=== PATIENT | female | born 1955 | race Two or more races ===

== ENCOUNTER 2018-05-23 08:23 | Inpatient (IN) | payer OTHER ==
[~2018-05-23] VITALS: Ht 149.9 cm; Wt 91.8 kg
[2018-05-23] VITALS (13 sets, daily range): BP systolic 136–193; BP diastolic 61–90
[~2018-05-23 08:23] MED LIST: ASPI-630 PO; ATOR10TA60 PO; DULA0.75 SQ; HYDR-2678 PO; INSU100I17 SQ; INSU100V13 SQ; LISI-338 PO; LISI2.5T PO; METF10007 PO; ONDA4TAB7 PO; POLY17PO29 PO
[2018-05-23] MEDS ORDERED: HYDR-2868 PO (08:29)
[2018-05-23] MEDS ORDERED: CARV25TA PO (08:29)
[2018-05-23] MEDS ORDERED: IV RINGERS,LACTATED 1000ML 1,000 ML IV SCH (08:37)
[2018-05-23] MEDS ORDERED: fentaNYL PF VIAL 100 MCG/2 ML VIAL IV PRN ×2 (08:45)
[2018-05-23] MEDS ORDERED: MIDAZOLAM HCL/PF 2 MG/2 ML VIAL. IV PRN (08:45)
[2018-05-23] MEDS ORDERED: LIDOCAINE 1% PF 2 ML VIAL. ID PRN (08:45)
[2018-05-23] MEDS: IV NORMAL SALINE 1000ML BAG 1,000 ML IV SCH ×2 (09:01→10:35)
[2018-05-23] MEDS ORDERED: PROPOFOL 20 ML IV ONE (09:15)
[2018-05-23 09:55] LABS: HEMATOCRIT 28.8 % (36.0-47.0); HEMOGLOBIN 9.1 g/dL (12.0-15.5); RED BLOOD COUNT 3.34 x10^6/uL (3.50-5.40); RED CELL DISTRIBUTION WIDTH 14.3 % (11.5-14.5); WHITE BLOOD COUNT 9.2 x10^3/uL (4.0-11.0)
[2018-05-23 10:00] LABS: BASE EXCESS ABG -8 mmol/L (-3-3); HCO3 ABG 19 mmol/L (21-28); PCO2 ABG 47 mmHg (35-46); PO2 ABG 164 mmHg (65-108); SAT O2 ABG 99 % (92-99)
[2018-05-23 10:06] LABS: FIO2 ABG 100
[2018-05-23 10:09] LABS: ALBUMIN 2.5 g/dL (3.4-5.0); ALBUMIN/GLOBULIN RATIO 0.7 (1.0-1.7); CREATININE 3.6 mg/dL (0.6-1.0); GFR 12.9; MAGNESIUM 2.5 mg/dL (1.8-2.4); TOTAL BILIRUBIN 0.2 mg/dL (0.2-1.0); TOTAL PROTEIN 6.3 g/dL (6.4-8.2)
[2018-05-23 10:11] LABS: PROTHROMBIN TIME PATIENT 14.3 SEC (11.7-14.0)
--- NOTE | 2018-05-23 10:12 | PDOC ---
Provider Note Provider Note Pt seen in ICU.H&P to be dictated. JL MARTINEZ MD May 23, 2018 10:12
[2018-05-23] MEDS ORDERED: DEXTROSE 50% 25 GM / 50ML DISP.SYRIN. IV PRN (10:15)
--- NOTE | 2018-05-23 10:41 | PDOC2 ---
CONSULT Date of Consult Date of Consult DATE: 05/23/18 TIME: 10:31 Reason for Consult Reason for Consult: BERKLEY on CKD Source Source: Chart review, Patient History of Present Illness Reason for Visit: Patient is a 62-year-old female with known diabetes for at least 10 years and long-standing hypertension, diabetic retinopathy, diabetic foot ulcers in the past requiring surgery. She also has significant loss of vision in her left eye due to diabetic retinopathy. 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 She currently resides in the facility She presented for an outpatient EGD secondary to recurrent nausea/vomiting. In recovery, she became hypoxic, apneic, and eventually arrest with asystole. Received two rounds of CPR and one dose of Epi with ROSC with NSR. Patient admitted to the ICU for further treatment. She is c/o intermittent nausea/vomiting for the last couple of week . C/O some shortness of breath and intermittent chest pain/heaviness in center of her chest with exertion. She has some chronic LE edema. She denies any urinary complaints She was seen by renal at her previous admission. Family History Family History: Diabetes Social History ALCOHOL: none Drugs: None Lives: [facility] Current Medications Current Medications Current Medications Midazolam HCl (Versed) 2 mg PRN 1X PRN IV PRIOR TO PROCEDURE; Start 05/23/18 at 08:45; Stop 05/24/18 at 08:44 Fentanyl Citrate (Fentanyl 2ml Vial) 25 mcg PRN Q5MIN PRN IV X 2 DOSES FOR PAIN ; Start 05/23/18 at 08:45; Stop 05/24/18 at 08:44 Fentanyl Citrate (Fentanyl 2ml Vial) 50 mcg PRN Q5MIN PRN IV X 2 DOSES FOR PAIN ; Start 05/23/18 at 08:45; Stop 05/24/18 at 08:44 Ringer's Solution 1,000 ml @ 125 mls/hr Q8H IV ; Start 05/23/18 at 08:37; Stop 05/23/18 at 10:21; Status DC Lidocaine HCl (Xylocaine-Mpf 1% 2ml Vial) 2 ml 1X PRN PRN ID IV START; Start at 08:45; Stop 05/24/18 at 08:44 Sodium Chloride 1,000 ml @ 125 mls/hr Q8H IV Last administered on 05/23/18at 09: 01; Start 05/23/18 at 08:57; Stop 05/23/18 at 20:56 Propofol 20 ml @ As Directed STK-MED ONCE IV ; Start 05/23/18 at 09:15; Stop 05/23 at 09:16; Status DC Sodium Polystyrene Sulfonate (Kayexalate) 30 gm 1X ONCE PO ; Start 05/23/18 at 11:00; Stop 05/23/18 at 11:01 Sodium Chloride 1,000 ml @ 100 mls/hr 1X ONCE IV ; Start 05/23/18 at 11:00; Stop 05/23/18 at 20:59 Insulin Human Lispro (HumaLOG) 0-7 UNITS TIDWMEALS SQ ; Start 05/23/18 at 12:00 Dextrose (Dextrose 50%-Water Syringe) 12.5 gm PRN Q15MIN PRN IV SEE COMMENTS; Start 05/23/18 at 10:15 Active Scripts Active Reported Hydralazine Hcl 25 Mg Tablet 25 Mg PO QID Coreg (Carvedilol) 25 Mg Tablet 12.5 Mg PO BIDWMEALS Atorvastatin Calcium 10 Mg Tablet 10 Mg PO HS Zofran (Ondansetron Hcl) 4 Mg Tablet 1 Tab PO Q6HRS Miralax (Polyethylene Glycol 3350) 17 Gm Powd.pack 1 Packet PO DAILY Lisinopril 2.5 Mg Tablet 1 Tab PO DAILY Aspirin 81 Mg Tab.chew 1 Tab PO DAILY Novolog Flexpen (Insulin Aspart) 100 Unit/1 Ml Insuln.pen 30 Unit SQ TID Trulicity (Dulaglutide) 0.75 Mg/0.5 Ml Pen.injctr 7.5 Mg SQ WEEKLY Levemir (Insulin Detemir) 100 Unit/1 Ml Vial 50 Unit SQ HS Lortab 5-325 mg Tablet (Hydrocodone/Acetaminophen) 1 Each Tablet 1 Tab PO HS MDD 4 grams daily at bedtime Allergies Allergies: Coded Allergies: I S O L A T I O N *CONTACT* (Verified Allergy, Unknown, 03/07/16) mrsa No Known Medication Allergies (Verified Allergy, Unknown, 05/23/18) ROS Review of System As per HPI Physical Exam Physical Exam GEN: Awake, NAD HEEN: OM moist NECK: Supple CVS: RRR RESP: CTA, No Acc. Muscle Use GI: BS + ve, Non Tender, : No CVA tenderness, No Suprapubic Tenderness Neuro- AXO x3 Skin No rash Vital Signs Vital Signs Date Time Temp Pulse Resp B/P (MAP) Pulse Ox O2 Delivery O2 Flow Rate FiO2 05/23/18 08:42 97.6 70 20 97 97.6 Assessment & Plan BERKLEY on CKD vs progression S/P Arrest following EGD this am as OP K high this am, recd Kayexalate repeat K high as well, had an episode of Bradycardia again Initiate HD today with temp Dialysis catheter Hyperkalemia- Bradycardia HD today cardiac Arrest following EGD Bradycardia CK D stage IV - as per last admission Confirmed by Dr. Reyes (eGFr 27 mL/m ) Acute on chronic possible systolic HF; CXR with pul edema Accelerated hypertension Chest pain Proteinuria: Nephrotic 10 gm in Feb 2018 At Home Low dose Lisinopril Anemia: Transfuse as needed. Discussed with Pt, RN and Cardiology Labs Labs Laboratory Tests Test 05/23/18 08:51 05/23/18 09:45 05/23/18 09:47 05/23/18 09:58 Glucose (Fingerstick) 177 mg/dL (70-99) 219 mg/dL (70-99) White Blood Count 9.2 x10^3/uL (4.0-11.0) Red Blood Count 3.34 x10^6/uL (3.50-5.40) Hemoglobin 9.1 g/dL (12.0-15.5) Hematocrit 28.8 % (36.0-47.0) Mean Corpuscular Volume 86 fL (79-100) Mean Corpuscular Hemoglobin 27 pg (25-35) Mean Corpuscular Hemoglobin Concent 32 g/dL (31-37) Red Cell Distribution Width 14.3 % (11.5-14.5) Platelet Count 270 x10^3/uL (140-400) Prothrombin Time 14.3 SEC (11.7-14.0) Prothromb Time International Ratio 1.1 (0.8-1.1) Sodium Level 138 mmol/L (136-145) Potassium Level 6.0 mmol/L (3.5-5.1) Chloride Level 108 mmol/L (98-107) Carbon Dioxide Level 20 mmol/L (21-32) Anion Gap 10 (6-14) Blood Urea Nitrogen 53 mg/dL (7-20) Creatinine 3.6 mg/dL (0.6-1.0) Estimated GFR (Cockcroft-Gault) 12.9 BUN/Creatinine Ratio 15 (6-20) Glucose Level 222 mg/dL (70-99) Calcium Level 8.0 mg/dL (8.5-10.1) Magnesium Level 2.5 mg/dL (1.8-2.4) Total Bilirubin 0.2 mg/dL (0.2-1.0) Aspartate Amino Transf (AST/SGOT) 96 U/L (15-37) Alanine Aminotransferase (ALT/SGPT) 170 U/L (14-59) Alkaline Phosphatase 211 U/L (46-116) Troponin I Quantitative < 0.017 ng/mL (0.000-0.055) Total Protein 6.3 g/dL (6.4-8.2) Albumin 2.5 g/dL (3.4-5.0) Albumin/Globulin Ratio 0.7 (1.0-1.7) O2 Saturation 99 % (92-99) Arterial Blood pH 7.24 (7.35-7.45) Arterial Blood pCO2 at Patient Temp 47 mmHg (35-46) Arterial Blood pO2 at Patient Temp 164 mmHg (65-108) Arterial Blood HCO3 19 mmol/L (21-28) Arterial Blood Base Excess -8 mmol/L (-3-3) FiO2 100 Laboratory Tests Test 05/23/18 08:51 05/23/18 09:45 05/23/18 09:47 05/23/18 09:58 Glucose (Fingerstick) 177 mg/dL (70-99) 219 mg/dL (70-99) White Blood Count 9.2 x10^3/uL (4.0-11.0) Red Blood Count 3.34 x10^6/uL (3.50-5.40) Hemoglobin 9.1 g/dL (12.0-15.5) Hematocrit 28.8 % (36.0-47.0) Mean Corpuscular Volume 86 fL (79-100) Mean Corpuscular Hemoglobin 27 pg (25-35) Mean Corpuscular Hemoglobin Concent 32 g/dL (31-37) Red Cell Distribution Width 14.3 % (11.5-14.5) Platelet Count 270 x10^3/uL (140-400) Prothrombin Time 14.3 SEC (11.7-14.0) Prothromb Time International Ratio 1.1 (0.8-1.1) Sodium Level 138 mmol/L (136-145) Potassium Level 6.0 mmol/L (3.5-5.1) Chloride Level 108 mmol/L (98-107) Carbon Dioxide Level 20 mmol/L (21-32) Anion Gap 10 (6-14) Blood Urea Nitrogen 53 mg/dL (7-20) Creatinine 3.6 mg/dL (0.6-1.0) Estimated GFR (Cockcroft-Gault) 12.9 BUN/Creatinine Ratio 15 (6-20) Glucose Level 222 mg/dL (70-99) Calcium Level 8.0 mg/dL (8.5-10.1) Magnesium Level 2.5 mg/dL (1.8-2.4) Total Bilirubin 0.2 mg/dL (0.2-1.0) Aspartate Amino Transf (AST/SGOT) 96 U/L (15-37) Alanine Aminotransferase (ALT/SGPT) 170 U/L (14-59) Alkaline Phosphatase 211 U/L (46-116) Troponin I Quantitative < 0.017 ng/mL (0.000-0.055) Total Protein 6.3 g/dL (6.4-8.2) Albumin 2.5 g/dL (3.4-5.0) Albumin/Globulin Ratio 0.7 (1.0-1.7) O2 Saturation 99 % (92-99) Arterial Blood pH 7.24 (7.35-7.45) Arterial Blood pCO2 at Patient Temp 47 mmHg (35-46) Arterial Blood pO2 at Patient Temp 164 mmHg (65-108) Arterial Blood HCO3 19 mmol/L (21-28) Arterial Blood Base Excess -8 mmol/L (-3-3) FiO2 100 Review All relevant outside records, renal labs, imaging studies, telemetry/EKG's were reviewed. PATRICIA CORONADO MD May 23, 2018 10:41
[2018-05-23] MEDS ORDERED: EPINEPHrine SYRINGE 1 MG/10 ML SYRINGE ONE (11:00)
[2018-05-23] MEDS ORDERED: IV NORMAL SALINE 1000ML BAG 1,000 ML IV ONE (11:00)
[2018-05-23] MEDS ORDERED: SODIUM POLYSTYRENE SULFONATE 15 GM/60 ML ORAL.SUSP. PO ONE (11:00)
--- NOTE | 2018-05-23 11:12 | RAD ---
Portable chest, 05/23/2018: HISTORY: CODE BLUE Comparison is made to a study from 03/16/2018. The heart is at the upper limits of normal in size. There are moderate bilateral perihilar infiltrates obscuring the underlying pulmonary vascularity. The appearance suggests pulmonary edema. There is blunting of the costophrenic angles, particularly on the right compatible with a small amount of pleural fluid. There is no evidence of pneumothorax. IMPRESSION: Bilateral pulmonary infiltrates have developed most compatible with pulmonary edema with probable small pleural effusions. Electronically signed by: Jake Armstrong MD (05/23/2018 11:09 AM) [facility]
--- NOTE | 2018-05-23 11:21 | EKG ---
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
[2018-05-23] MEDS: hydrALAZINE 20 MG/ML VIAL. IVP PRN (11:31)
[2018-05-23] MEDS: INSULIN LISPRO 300 UNITS/3 ML INSULN.PEN. SQ SCH ×2 (11:33→17:00)
--- NOTE | 2018-05-23 11:52 | RAD ---
EXAM: Renal sonogram. HISTORY: Renal failure. TECHNIQUE: 03/17/2018. COMPARISON: Sonographic imaging of the kidneys was performed. FINDINGS: The exam is limited due to bowel gas and patient body habitus. The left kidney is partially obscured. The ureteral jets are obscured. The visualized portions of both kidneys are unremarkable. There is no hydronephrosis or solid or cystic renal lesion. The bladder is unremarkable. There are elevated right greater than left renal resistive indices. The aorta and inferior cava are obscured. IMPRESSION: 1. Elevated right greater than left renal resistive indices. This can be seen with intrinsic renal disease. 2. Limited exam due to body habitus and bowel gas. The midline structures, portions of the left kidney and ureteral jets are obscured. Electronically signed by: Alba Nelson MD (05/23/2018 11:49 AM) [facility]
--- NOTE | 2018-05-23 11:56 | PDOC2 ---
MAURY GUTIERREZ FOOD SALES CLERK 05/23/18 1156: CARDIAC CONSULT DATE OF CONSULT Date of Consult DATE: 05/23/18 TIME: 11:51 REASON FOR CONSULT Reason for Consult: Bradycardia and apneic post EGD REFERRING PHYSICIAN Referring Physician: PAULY Oscar SOURCE Source: Chart review, Patient HISTORY OF PRESENT ILLNESS HISTORY OF PRESENT ILLNESS This is a 62 yo female who presented for an outpatient EGD secondary to recurrent nausea/vomiting. In recovery, patient back hypoxic, apneic, and eventually arrest with asystole. Received two rounds of CPR and one dose of Epi with ROSC with NSR. Patient admitted to the ICU for further treatment. Patient presently maintaining NSR in ICU. Patient reports having intermittent nausea/ vomiting for the last couple of week. Also has had some shortness of breath in that period of time. Does report having frequent chest pain. Mainly with exertion. Reports it generally occurs when she walks. Located in her central chest. Describes as heaviness. Associated with shortness of breath and mild dizziness. Resolved when she sits down to rest. No palpitations, diaphoresis. No recent orthopnea or PND. Does have some chronic LE edema. No worse than usual recently. PAST MEDICAL HISTORY Cardiovascular: HTN, Hyperlipidemia Pulmonary: No pertinent hx CENTRAL NERVOUS SYSTEM: Periperal neuropathy GI: GERD, Other (gastroparesis ) Heme/Onc: No pertinent hx Hepatobiliary: No pertinent hx Psych: No pertinent hx Musculoskeletal: Osteoarthritis Rheumatologic: No pertinent hx Infectious disease: No pertinent hx ENT: No pertinent hx Renal/: Chronic renal insuff Endocrine: Diabetes Dermatology: No pertinent hx PAST SURGICAL HISTORY Past Surgical History: Tubal Ligation FAMILY HISTORY Family History: Diabetes, Hypertension SOCIAL HISTORY Smoke: No ALCOHOL: none Drugs: None [facility] CURRENT MEDICATIONS CURRENT MEDICATIONS Current Medications Medications (Trade) Dose Ordered Sig/Jenna Route PRN Reason Start Time Stop Time Status Last Admin Dose Admin Sodium Chloride 1,000 ml @ 125 mls/hr Q8H IV 05/23/18 08:57 05/23/18 20:56 05/23/18 09:01 Sodium Polystyrene Sulfonate (Kayexalate) 30 gm 1X ONCE PO 05/23/18 11:00 05/23/18 11:01 DC 05/23/18 11:30 Sodium Chloride 1,000 ml @ 100 mls/hr 1X ONCE IV 05/23/18 11:00 05/23/18 20:59 05/23/18 11:35 Insulin Human Lispro (HumaLOG) 0-7 UNITS TIDWMEALS SQ 05/23/18 12:00 05/23/18 11:33 Hydralazine HCl (Apresoline Inj) 10 mg PRN Q4HRS PRN IVP ELEVATED BP, SEE COMMENTS 05/23/18 11:15 05/23/18 11:31 ALLERGIES ALLERGIES: Coded Allergies: I S O L A T I O N *CONTACT* (Verified Allergy, Unknown, 03/07/16) mrsa No Known Medication Allergies (Verified Allergy, Unknown, 05/23/18) ROS Review of System 14 point ROS conducted with pertinent positives noted above in HPI. PHYSICAL EXAM General: Alert, Oriented X3, Cooperative, No acute distress HEENT: Atraumatic, Mucous membr. moist/pink Lungs: Other (faint crackles, diminished bases ) Heart: Regular rate, Normal S1, Normal S2, Other (2/6 systolic murmur ) Extremities: Other (1+ bilateral LE edema ) Skin: No breakdown, No significant lesion Neuro: Sensation intact Psych/Mental Status: Mental status NL, Mood NL MUSCULOSKELETAL: Osteoarthritic changes both hands VITALS VITALS Vital Signs Date Time Temp Pulse Resp B/P (MAP) Pulse Ox O2 Delivery O2 Flow Rate FiO2 05/23/18 11:31 70 191/93 05/23/18 08:42 97.6 20 97 97.6 LABS Lab: Laboratory Tests Test 05/23/18 08:51 05/23/18 09:45 05/23/18 09:47 05/23/18 09:58 Glucose (Fingerstick) 177 mg/dL (70-99) 219 mg/dL (70-99) White Blood Count 9.2 x10^3/uL (4.0-11.0) Red Blood Count 3.34 x10^6/uL (3.50-5.40) Hemoglobin 9.1 g/dL (12.0-15.5) Hematocrit 28.8 % (36.0-47.0) Mean Corpuscular Volume 86 fL (79-100) Mean Corpuscular Hemoglobin 27 pg (25-35) Mean Corpuscular Hemoglobin Concent 32 g/dL (31-37) Red Cell Distribution Width 14.3 % (11.5-14.5) Platelet Count 270 x10^3/uL (140-400) Prothrombin Time 14.3 SEC (11.7-14.0) Prothromb Time International Ratio 1.1 (0.8-1.1) Sodium Level 138 mmol/L (136-145) Potassium Level 6.0 mmol/L (3.5-5.1) Chloride Level 108 mmol/L (98-107) Carbon Dioxide Level 20 mmol/L (21-32) Anion Gap 10 (6-14) Blood Urea Nitrogen 53 mg/dL (7-20) Creatinine 3.6 mg/dL (0.6-1.0) Estimated GFR (Cockcroft-Gault) 12.9 BUN/Creatinine Ratio 15 (6-20) Glucose Level 222 mg/dL (70-99) Calcium Level 8.0 mg/dL (8.5-10.1) Magnesium Level 2.5 mg/dL (1.8-2.4) Total Bilirubin 0.2 mg/dL (0.2-1.0) Aspartate Amino Transf (AST/SGOT) 96 U/L (15-37) Alanine Aminotransferase (ALT/SGPT) 170 U/L (14-59) Alkaline Phosphatase 211 U/L (46-116) Troponin I Quantitative < 0.017 ng/mL (0.000-0.055) Total Protein 6.3 g/dL (6.4-8.2) Albumin 2.5 g/dL (3.4-5.0) Albumin/Globulin Ratio 0.7 (1.0-1.7) O2 Saturation 99 % (92-99) Arterial Blood pH 7.24 (7.35-7.45) Arterial Blood pCO2 at Patient Temp 47 mmHg (35-46) Arterial Blood pO2 at Patient Temp 164 mmHg (65-108) Arterial Blood HCO3 19 mmol/L (21-28) Arterial Blood Base Excess -8 mmol/L (-3-3) FiO2 100 ASSESSMENT/PLAN ASSESSMENT/PLAN 1. Respiratory/cardiac arrest following EGD; s/p 2 rounds of CPR and 1 dose of Epi with ROSC. presently maintaining SR. Metabolic derangement possibly contributing. 2. Acute on chronic systolic HF; CXR with pul edema. Echo showed LVEF 45% with moderate MR 3. Accelerated hypertension 4. Chest pain, with typical features. 5. Persistent nausea/vomiting. EGD without significant acute findings. Had episode of N/V this afternoon followed by bradycardia- likely vasovagal. Returned to NSR. 6. Hyperlipidemia 7. Hyperkalemia; K 6.0 this am, repeat at 6.2. Probable HD to commence. 8. BERKLEY on CKD4; progressive. IVFs initiated. Monitor closely with pulmonary edema on CXR. 8. Anemia of chronic disease 9. Elevated LFTs 10. GERD 11. DM, II; as per PCP Recommendations ASA Lipid panel. Hold off on statin for now with elevated LFTs Norvasc. Hydralazine IV PRN Correct electrolyte imbalances; D/w Dr. Diaz No CYNTHIA/ARB with BERKLEY Echo to assess LV systolic function If patient is to be dialyzed, consider cardiac catheterization given report of chest pain with exertion, N/V, and findings of CMP on echo. LISS DELUNA MD 05/23/18 1700: CARDIAC CONSULT ASSESSMENT/PLAN ASSESSMENT/PLAN Patient seen and examined. Agree with IP TECHNOLOGY TRANSACTIONS ATTORNEY's assessment and plan. Events surrounding code suspicious for vagal etiology However, patient has been complaining of chest pain worse with exertion consistent with unstable angina 2D echo showed EF 45% Continue fluid removal with HD per nephrology team We will titrate oral antihypertensives for better BP control Plan cardiac cath possibly on monday Thank you for your consultation MAURY GUTIERREZ APRN May 23, 2018 11:56 LISS DELUNA MD May 23, 2018 17:00
--- NOTE | 2018-05-23 12:59 | CARD ---
MR#: [id number] Date of Study: 05/23/2018 Ordering Physician: JL MARTINEZ, Referring Physician: JL MARTINEZ, Tech: Amrita Muir [facility] APPROVED REPORT EXAM: Two-dimensional and M-mode echocardiogram with Doppler and color Doppler. Other Information Quality : AverageHR: 80bpm Rhythm : NSR INDICATION S/P Code Blue 2D DIMENSIONS RVDd2.8 (2.9-3.5cm)Left Atrium(2D)3.5 (1.6-4.0cm) IVSd0.8 (0.7-1.1cm)Aortic Root(2D)2.3 (2.0-3.7cm) LVDd4.6 (3.9-5.9cm)LVOT Diameter1.8 (1.8-2.4cm) PWd0.9 (0.7-1.1cm)LVDs3.3 (2.5-4.0cm) FS (%) 29.8 %SV56.8 ml Aortic Valve AoV Peak Shilo.145.9cm/sAoV VTI35.5cm AO Peak GR.8.5mmHgLVOT VTI 16.59cm AO Mean GR.5mmHgAVA (VTI)1.30cm2 Mitral Valve MV E Rrrypllg168.3cm/sMV E Peak Gr.150mmHg MV DECEL [id number] A Groanida43.7cm/s E/A Ratio1.1MV A Nkhnilco02am TDI Lateral E' P. V10.17cm/sMedial E' P. V7.02cm/s E/Lateral E'10.5E/Medial E'15.1 Tricuspid Valve TR P. Okpuylfr302gd/sRAP UVRUZQLR9izWm TR Peak Gr.92lrLqWVTX10zxUt Pulmonary Vein S1 Bdmzvoog54.6cm/sS2 Jdqfmfls41.46cm/s D2 Qynfmqrt42.5cm/s LEFT VENTRICLE Technically difficult study. The left ventricle is normal size. There is normal left ventricular wall thickness. Left ventricle systolic function is slightly decreased. The Ejection Fraction is estimate d at 45%. There is slight global hypokinesis of the left ventricle. Transmitral Doppler flow pattern is Grade II-pseudonormal filling dynamics. RIGHT VENTRICLE The right ventricle is normal size. There is normal right ventricular wall thickness. The right ventr icular systolic function is normal. ATRIA The left atrium size is normal. The right atrium size is normal. The interatrial septum is intact wit h no evidence for an atrial septal defect or patent foramen ovale as noted on 2-D or Doppler imaging. AORTIC VALVE The aortic valve is normal in structure and function. The aortic valve is trileaflet. Doppler and Col or Flow revealed no significant aortic regurgitation. There is no significant aortic valvular stenosi s. MITRAL VALVE The mitral valve is normal in structure and function. There is no evidence of mitral valve prolapse. There is no mitral valve stenosis. Doppler and Color-flow revealed moderate mitral regurgitation. TRICUSPID VALVE The tricuspid valve is normal in structure and function. Doppler and Color Flow revealed mild tricusp id regurgitation. The PA pressure was estimated at 33 mmHg. There is no tricuspid valve prolapse or v egetation. There is no tricuspid valve stenosis. PULMONIC VALVE The pulmonic valve is not well visualized. GREAT VESSELS The aortic root is normal in size. The ascending aorta is normal in size. The IVC is normal in size a nd collapses >50% with inspiration. PERICARDIAL EFFUSION Pleural Effusion noted. There is no evidence of significant pericardial effusion. Critical Notification Critical Value: No <Conclusion> Technically difficult study. The left ventricle is normal size. Left ventricle systolic function is slightly decreased. The Ejection Fraction is estimated at 45%. There is slight global hypokinesis of the left ventricle. There is no significant aortic valvular stenosis. Doppler and Color Flow revealed no significant aortic regurgitation. Doppler and Color-flow revealed moderate mitral regurgitation. Doppler and Color Flow revealed mild tricuspid regurgitation. The PA pressure was estimated at 33 mmHg. There is no evidence of significant pericardial effusion. Signed by : Jr Fang MD Electronically Approved : 05/23/2018 12:59:18
[2018-05-23 13:23] LABS: CALCIUM 7.7 mg/dL (8.5-10.1); CREATININE 3.7 mg/dL (0.6-1.0); GFR 12.5; MAGNESIUM 2.2 mg/dL (1.8-2.4)
[2018-05-23 13:28] LABS: POTASSIUM 6.2 mmol/L (3.5-5.1)
[2018-05-23] MEDS ORDERED: LIDOCAINE WITH 8.4% SOD BICARB 3 ML DISP.SYRIN. ONE (13:59)
[2018-05-23] MEDS ORDERED: LIDOCAINE WITH 8.4% SOD BICARB 3 ML DISP.SYRIN. INJ ONE (14:00)
--- NOTE | 2018-05-23 14:30 | PDOC ---
G I PROGRESS NOTE Reason for Follow-up Nausea with long standing Dm S/p respiratory arrest with endoscopy Subjective Feeling better this afternoon/ chest remains sore Physical Exam Lungs decreased BS CV S1 S2 ABD +BS, soft, nontender Review of Relevant I have reviewed the following items yana (where applicable) has been applied. Labs Laboratory Tests Test 05/23/18 08:51 05/23/18 09:45 05/23/18 09:47 05/23/18 09:58 Glucose (Fingerstick) 177 mg/dL (70-99) 219 mg/dL (70-99) White Blood Count 9.2 x10^3/uL (4.0-11.0) Red Blood Count 3.34 x10^6/uL (3.50-5.40) Hemoglobin 9.1 g/dL (12.0-15.5) Hematocrit 28.8 % (36.0-47.0) Mean Corpuscular Volume 86 fL (79-100) Mean Corpuscular Hemoglobin 27 pg (25-35) Mean Corpuscular Hemoglobin Concent 32 g/dL (31-37) Red Cell Distribution Width 14.3 % (11.5-14.5) Platelet Count 270 x10^3/uL (140-400) Prothrombin Time 14.3 SEC (11.7-14.0) Prothromb Time International Ratio 1.1 (0.8-1.1) Sodium Level 138 mmol/L (136-145) Potassium Level 6.0 mmol/L (3.5-5.1) Chloride Level 108 mmol/L (98-107) Carbon Dioxide Level 20 mmol/L (21-32) Anion Gap 10 (6-14) Blood Urea Nitrogen 53 mg/dL (7-20) Creatinine 3.6 mg/dL (0.6-1.0) Estimated GFR (Cockcroft-Gault) 12.9 BUN/Creatinine Ratio 15 (6-20) Glucose Level 222 mg/dL (70-99) Calcium Level 8.0 mg/dL (8.5-10.1) Magnesium Level 2.5 mg/dL (1.8-2.4) Total Bilirubin 0.2 mg/dL (0.2-1.0) Aspartate Amino Transf (AST/SGOT) 96 U/L (15-37) Alanine Aminotransferase (ALT/SGPT) 170 U/L (14-59) Alkaline Phosphatase 211 U/L (46-116) Troponin I Quantitative < 0.017 ng/mL (0.000-0.055) Total Protein 6.3 g/dL (6.4-8.2) Albumin 2.5 g/dL (3.4-5.0) Albumin/Globulin Ratio 0.7 (1.0-1.7) O2 Saturation 99 % (92-99) Arterial Blood pH 7.24 (7.35-7.45) Arterial Blood pCO2 at Patient Temp 47 mmHg (35-46) Arterial Blood pO2 at Patient Temp 164 mmHg (65-108) Arterial Blood HCO3 19 mmol/L (21-28) Arterial Blood Base Excess -8 mmol/L (-3-3) FiO2 100 Test 05/23/18 13:00 Sodium Level 141 mmol/L (136-145) Potassium Level 6.2 mmol/L (3.5-5.1) Chloride Level 110 mmol/L (98-107) Carbon Dioxide Level 21 mmol/L (21-32) Anion Gap 10 (6-14) Blood Urea Nitrogen 54 mg/dL (7-20) Creatinine 3.7 mg/dL (0.6-1.0) Estimated GFR (Cockcroft-Gault) 12.5 Glucose Level 221 mg/dL (70-99) Calcium Level 7.7 mg/dL (8.5-10.1) Magnesium Level 2.2 mg/dL (1.8-2.4) Troponin I Quantitative 0.145 ng/mL (0.000-0.055) Laboratory Tests Test 05/23/18 08:51 05/23/18 09:45 05/23/18 09:47 05/23/18 09:58 Glucose (Fingerstick) 177 mg/dL (70-99) 219 mg/dL (70-99) White Blood Count 9.2 x10^3/uL (4.0-11.0) Red Blood Count 3.34 x10^6/uL (3.50-5.40) Hemoglobin 9.1 g/dL (12.0-15.5) Hematocrit 28.8 % (36.0-47.0) Mean Corpuscular Volume 86 fL (79-100) Mean Corpuscular Hemoglobin 27 pg (25-35) Mean Corpuscular Hemoglobin Concent 32 g/dL (31-37) Red Cell Distribution Width 14.3 % (11.5-14.5) Platelet Count 270 x10^3/uL (140-400) Prothrombin Time 14.3 SEC (11.7-14.0) Prothromb Time International Ratio 1.1 (0.8-1.1) Sodium Level 138 mmol/L (136-145) Potassium Level 6.0 mmol/L (3.5-5.1) Chloride Level 108 mmol/L (98-107) Carbon Dioxide Level 20 mmol/L (21-32) Anion Gap 10 (6-14) Blood Urea Nitrogen 53 mg/dL (7-20) Creatinine 3.6 mg/dL (0.6-1.0) Estimated GFR (Cockcroft-Gault) 12.9 BUN/Creatinine Ratio 15 (6-20) Glucose Level 222 mg/dL (70-99) Calcium Level 8.0 mg/dL (8.5-10.1) Magnesium Level 2.5 mg/dL (1.8-2.4) Total Bilirubin 0.2 mg/dL (0.2-1.0) Aspartate Amino Transf (AST/SGOT) 96 U/L (15-37) Alanine Aminotransferase (ALT/SGPT) 170 U/L (14-59) Alkaline Phosphatase 211 U/L (46-116) Troponin I Quantitative < 0.017 ng/mL (0.000-0.055) Total Protein 6.3 g/dL (6.4-8.2) Albumin 2.5 g/dL (3.4-5.0) Albumin/Globulin Ratio 0.7 (1.0-1.7) O2 Saturation 99 % (92-99) Arterial Blood pH 7.24 (7.35-7.45) Arterial Blood pCO2 at Patient Temp 47 mmHg (35-46) Arterial Blood pO2 at Patient Temp 164 mmHg (65-108) Arterial Blood HCO3 19 mmol/L (21-28) Arterial Blood Base Excess -8 mmol/L (-3-3) FiO2 100 Test 05/23/18 13:00 Sodium Level 141 mmol/L (136-145) Potassium Level 6.2 mmol/L (3.5-5.1) Chloride Level 110 mmol/L (98-107) Carbon Dioxide Level 21 mmol/L (21-32) Anion Gap 10 (6-14) Blood Urea Nitrogen 54 mg/dL (7-20) Creatinine 3.7 mg/dL (0.6-1.0) Estimated GFR (Cockcroft-Gault) 12.5 Glucose Level 221 mg/dL (70-99) Calcium Level 7.7 mg/dL (8.5-10.1) Magnesium Level 2.2 mg/dL (1.8-2.4) Troponin I Quantitative 0.145 ng/mL (0.000-0.055) Medications Current Medications Midazolam HCl (Versed) 2 mg PRN 1X PRN IV PRIOR TO PROCEDURE; Start 05/23/18 at 08:45; Stop 05/24/18 at 08:44 Fentanyl Citrate (Fentanyl 2ml Vial) 25 mcg PRN Q5MIN PRN IV X 2 DOSES FOR PAIN ; Start 05/23/18 at 08:45; Stop 05/24/18 at 08:44 Fentanyl Citrate (Fentanyl 2ml Vial) 50 mcg PRN Q5MIN PRN IV X 2 DOSES FOR PAIN ; Start 05/23/18 at 08:45; Stop 05/24/18 at 08:44 Ringer's Solution 1,000 ml @ 125 mls/hr Q8H IV ; Start 05/23/18 at 08:37; Stop 05/23/18 at 10:21; Status DC Lidocaine HCl (Xylocaine-Mpf 1% 2ml Vial) 2 ml 1X PRN PRN ID IV START; Start at 08:45; Stop 05/24/18 at 08:44 Sodium Chloride 1,000 ml @ 125 mls/hr Q8H IV Last administered on 05/23/18at 09: 01; Start 05/23/18 at 08:57; Stop 05/23/18 at 20:56 Propofol 20 ml @ As Directed STK-MED ONCE IV ; Start 05/23/18 at 09:15; Stop 05/23 at 09:16; Status DC Sodium Polystyrene Sulfonate (Kayexalate) 30 gm 1X ONCE PO Last administered on 05/23/18at 11:30; Start 05/23/18 at 11:00; Stop 05/23/18 at 11:01; Status DC Sodium Chloride 1,000 ml @ 100 mls/hr 1X ONCE IV Last administered on at 11:35; Start 05/23/18 at 11:00; Stop 05/23/18 at 20:59 Insulin Human Lispro (HumaLOG) 0-7 UNITS TIDWMEALS SQ Last administered on at 11:33; Start 05/23/18 at 12:00 Dextrose (Dextrose 50%-Water Syringe) 12.5 gm PRN Q15MIN PRN IV SEE COMMENTS; Start 05/23/18 at 10:15 Hydralazine HCl (Apresoline Inj) 10 mg PRN Q4HRS PRN IVP ELEVATED BP, SEE COMMENTS Last administered on 05/23/18at 11:31; Start 05/23/18 at 11:15 Lidocaine/Sodium Bicarbonate (Buffered Lidocaine 1%) 3 ml STK-MED ONCE .ROUTE ; Start 05/23/18 at 13:59; Stop 05/23/18 at 14:00; Status DC Lidocaine/Sodium Bicarbonate (Buffered Lidocaine 1%) 3 ml 1X ONCE INJ ; Start 05/23/18 at 14:00; Stop 05/23/18 at 14:04; Status DC Active Scripts Active Reported Hydralazine Hcl 25 Mg Tablet 25 Mg PO QID Coreg (Carvedilol) 25 Mg Tablet 12.5 Mg PO BIDWMEALS Atorvastatin Calcium 10 Mg Tablet 10 Mg PO HS Zofran (Ondansetron Hcl) 4 Mg Tablet 1 Tab PO Q6HRS Miralax (Polyethylene Glycol 3350) 17 Gm Powd.pack 1 Packet PO DAILY Lisinopril 2.5 Mg Tablet 1 Tab PO DAILY Aspirin 81 Mg Tab.chew 1 Tab PO DAILY Novolog Flexpen (Insulin Aspart) 100 Unit/1 Ml Insuln.pen 30 Unit SQ TID Trulicity (Dulaglutide) 0.75 Mg/0.5 Ml Pen.injctr 7.5 Mg SQ WEEKLY Levemir (Insulin Detemir) 100 Unit/1 Ml Vial 50 Unit SQ HS Lortab 5-325 mg Tablet (Hydrocodone/Acetaminophen) 1 Each Tablet 1 Tab PO HS MDD 4 grams daily at bedtime Vitals/I & O Vital Sign - Last 24 Hours 05/23/18 05/23/18 05/23/18 05/23/18 08:42 11:31 12:21 13:07 Temp 97.6 98.7 97.6 98.7 Pulse 70 70 73 Resp 20 18 B/P (MAP) 191/93 153/64 (93) Pulse Ox 97 98 O2 Delivery Nasal Cannula O2 Flow Rate 4.0 4.0 05/23/18 14:00 Pulse 73 Resp 18 B/P (MAP) 136/90 (105) Pulse Ox 97 O2 Flow Rate 4.0 Problem List Nausea with DM, gastroparesis, and cod eblue. Assessment OHD with RCA involvement possibly contributing. Cardiology consult for possible studies with persistent nausea. ESA BURDICK MD May 23, 2018 14:30
--- NOTE | 2018-05-23 14:57 | RAD ---
Portable chest, 05/23/2018, 2:41 PM: HISTORY: Check dialysis catheter placement Comparison is made to the study of earlier the same day. A right jugular dialysis type catheter has been inserted extending into the superior aspect of the right atrium. There are persistent perihilar pulmonary infiltrates most compatible with pulmonary edema. There are probable small pleural effusions. There is no evidence of pneumothorax. IMPRESSION: 1. Interval insertion of a right jugular dialysis type catheter extending into the superior aspect the right atrium. 2. Ongoing bilateral pulmonary edema and small pleural effusions Electronically signed by: Jake Armstrong MD (05/23/2018 2:55 PM) [facility]
[2018-05-23] MEDS ORDERED: IV NORMAL SALINE 1000ML BAG 1,000 ML IV PRN ×2 (15:30)
--- NOTE | 2018-05-23 15:36 | RAD ---
Procedure: Ultrasound-guided placement of right internal jugular temporary dialysis catheter 05/23/2018 3:32 PM Clinical Indication: dialysis, place trialysis catheter Discussion: The risks and benefits of the procedure were discussed the patient and/or their patient support representative. Informed consent was obtained. A timeout procedure was performed. All elements of maximal sterile barrier technique including the use of a cap, mask, sterile gown, sterile gloves, large sterile sheet, appropriate hand hygiene, and 2% chlorhexidine for cutaneous antisepsis (or acceptable alternative antiseptic per current guidelines) were followed for this procedure. The patient was prepped and draped in the usual sterile fashion. Ultrasound interrogation of the right neck revealed patency and compressibility of the right internal jugular vein. A 21-gauge micropuncture was then used to gain access to this vein under ultrasound guidance. A hard copy ultrasound image was recorded. A guidewire was advanced centrally. 5 Danish sheath was placed. Over a wire following dilatation, a triple-lumen temporary dialysis catheter was advanced centrally. Catheter was found to flush and aspirate normally. Follow-up chest radiograph demonstrates tip at the cavoatrial junction. Catheter secured in place and a sterile dressing was applied. No immediate complications were identified. Impression: Successful ultrasound-guided placement of right internal jugular triple-lumen temporary dialysis catheter
[2018-05-23] MEDS ORDERED: DIALYSIS PATIENT. MC PRN ×2 (16:30)
[2018-05-23] MEDS: amLODIPine BESYLATE 5 MG TABLET PO SCH (18:00)
[2018-05-23] MEDS: ASPIRIN ENTERIC COATED 81 MG TABLET.DR. PO SCH (18:00)
[2018-05-23] MEDS: CARVEDILOL 12.5 MG TABLET. PO SCH (18:03)
[2018-05-23] MEDS: hydrALAZINE 25 MG TABLET PO SCH ×2 (18:04→21:17)
[2018-05-23] MEDS: ONDANSETRON ODT 4 MG TAB.RAPDIS. PO SCH ×2 (18:04→23:53)
--- NOTE | 2018-05-23 18:58 | HP ---
ADMIT DATE: 05/23/2018 PATIENT LOCATION: ICU, room 102. REASON FOR ADMISSION TO THE HOSPITAL: Code blue. HISTORY OF PRESENT ILLNESS: The patient came in for outpatient EGD for diabetic gastroparesis. After the procedure in the recovery the patient became unresponsive, bradycardic and lost pulse. Code filippo was called. CPR was done, two rounds, one dose of epinephrine and she was revived and she did need to be intubated and no cardioversion was done. The patient was transferred to the ICU. Her potassium was high at 6.0, was given Kayexalate did not improve and again she had another episode of bradycardia. Later in the ICU Nephrology was consulted and she had a temporary dialysis catheter placed. She will go for hemodialysis. Chest x-ray also shows pulmonary edema kind of picture. She had seen Cardiology. Stat echo shows a 40% ejection fraction. Troponin borderline elevation. EKG negative for acute [place]. PAST MEDICAL HISTORY: As mentioned, she has history of hypertension, chronic kidney disease stage 3, 2.5 her baseline, hypertension, hyperlipidemia, diabetic nephropathy, diabetic retinopathy. PAST SURGICAL HISTORY: [facility] and some surgical debridement done in the past. ALLERGIES: No allergies. SOCIAL HISTORY: No history of smoking, alcohol or drug abuse. She is at the longterm, walks with a walker. FAMILY HISTORY: Positive for diabetes, hypertension. MEDICATIONS: At the facility, aspirin 81 mg daily, atorvastatin 10 mg daily, hydrocodone q.6, Coreg 25 mg, she takes 12.5 twice a day, Trulicity once a week for diabetes, 75 mcg, hydralazine 25 mg q.i.d., insulin 30 units 3 times daily, Levemir 15 units at bedtime, lisinopril 2.5 mg daily, Zofran for nausea, MiraLax 17 grams daily. REVIEW OF SYSTEMS: Complains of chest pain, mostly from CPR and chest compression, has some shortness of breath, no fever. Rest of the 14-system was reviewed and negative. PHYSICAL EXAMINATION: VITAL SIGNS: Shows a temperature 97, pulse 70, respirations 20, pulse ox was 97 on 4 liters, blood pressure 191/93. HEENT: Head is atraumatic. Pupils equal. Oral cavity, few teeth present. NECK: Supple. Thyroid not enlarged. JVD not elevated. CHEST: Symmetrical. LUNGS: Few crackles at the bases. CARDIOVASCULAR: S1, S2, 3/4 heart murmur at the base. ABDOMEN: Soft, no mass palpable. EXTERNAL GENITALIA: No Frye. RECTAL: Deferred. EXTREMITIES: 2+ edema all the way going to the thigh, foot, no open sores of the spine and moving upper extremities. NEUROLOGIC: The patient is able to talk. She is on 100% oxygen. LABORATORY DATA: Shows a white count 9, hemoglobin 9, platelets 270. INR is 1.1. Electrolytes show sodium 138, potassium 6.0, chloride 108, bicarbonate 20, BUN 53, creatinine 3.6, glucose 177, magnesium 2.5. LFTs slightly elevated, AST 96, ALT 170, alk phos 211. She had a chest x-ray shows congestive heart failure/pulmonary edema. FINAL IMPRESSION: 1. Code blue. The patient has developed bradycardia, unresponsive, Code blue was called, revived with 2 rounds of CPR and 1 epinephrine.No cardiac shock was given 2. Hyperkalemia. 3. Acute on chronic renal failure. Her baseline creatinine 2.5, now is 3.6. 4. Diabetes.IDDM 5. Hypertension. 6. Hyperlipidemia. 7. Pulmonary edema. 8. Diabetic with gastroparesis. PLAN: At this time, was admit to hospital, seen by Cardiology. Echocardiogram shows 40% ejection fraction. The patient seen by Nephrology, given Kayexalate for hyperkalemia, did not improve. She is going to get temporary dialysis catheter and dialysis today and she is going to go come of the fluid off and monitor EKG, cardiac enzymes for next 24 hours. We will resume some of the home medications. JL MARTINEZ MD DR: UBALDO/alexis JOB#: [id number] / [id number] DEBBIE
[2018-05-23] MEDS: ATORVASTATIN CALCIUM 10 MG TABLET. PO SCH (21:18)
[2018-05-23] MEDS: HYDROcodone/APAP 5/325MG 1 TAB TABLET PO SCH (21:18)
[2018-05-24] VITALS (13 sets, daily range): BP systolic 150–192; BP diastolic 50–88
[2018-05-24] MEDS: ONDANSETRON ODT 4 MG TAB.RAPDIS. PO SCH ×3 (05:47→17:46)
[2018-05-24 06:40] LABS: ALBUMIN 2.1 g/dL (3.4-5.0); ALBUMIN/GLOBULIN RATIO 0.7 (1.0-1.7); CALCIUM 7.1 mg/dL (8.5-10.1); CREATININE 2.3 mg/dL (0.6-1.0); GFR 21.6; POTASSIUM 3.7 mmol/L (3.5-5.1); TOTAL BILIRUBIN 0.3 mg/dL (0.2-1.0)
[2018-05-24 06:47] LABS: CHOLESTEROL/HDL RATIO 4.1
[2018-05-24] MEDS: INSULIN LISPRO 300 UNITS/3 ML INSULN.PEN. SQ SCH ×3 (08:00→17:00)
[2018-05-24] MEDS: ASPIRIN CHEWABLE 81 MG TABLET. PO SCH (08:02)
[2018-05-24] MEDS: POLYETHYLENE GLYCOL 3350 17 GM PACKET. PO SCH (08:02)
[2018-05-24] MEDS: amLODIPine BESYLATE 5 MG TABLET PO SCH (08:10)
[2018-05-24] MEDS: hydrALAZINE 25 MG TABLET PO SCH ×4 (08:10→20:50)
[2018-05-24] MEDS: ASPIRIN ENTERIC COATED 81 MG TABLET.DR. PO SCH (08:10)
[2018-05-24] MEDS: CARVEDILOL 12.5 MG TABLET. PO SCH ×2 (08:11→16:58)
--- NOTE | 2018-05-24 08:50 | NUR ---
IP: Pt is mrsa screen + requiring contact precautions.
--- NOTE | 2018-05-24 09:01 | EKG ---
[facility] [address] [place] [address] Test Date: 2018-05-24 Test Time: 08:46:34 Pat Name: KATHERINE GANDARA Department: Room: 102 1 Gender: F [employer] Supervisor: GRAHAM : 1955 Requested By: JL MARTINEZ Order Number: [id number] Reading MD: Abdulkadir Moore MD Measurements Intervals [place] Rate: 87 P: 55 WA: 136 QRS: 10 QRSD: 90 T: 40 QT: 386 QTc: 465 Interpretive Statements SINUS RHYTHM Electronically Signed On 05-24-2018 11:06:17 COVERING MACHINE TENDER by Abdulkadir Moore MD
--- NOTE | 2018-05-24 09:31 | PDOC ---
Subjective: Subjective: Denies pain. Some nausea. Objective: Objective: Reviewed w/ RN - dialyzed yesterday, possible cardiac cath tomorrow. No appetite, some nausea but taking some liquids. Vital Signs: Vital Signs Date Time Temp Pulse Resp B/P (MAP) Pulse Ox O2 Delivery O2 Flow Rate FiO2 05/24/18 08:11 81 175/66 05/24/18 08:00 Nasal Cannula 2.0 05/24/18 06:00 12 99 05/24/18 04:00 98.1 98.1 Labs: Laboratory Tests Test 05/23/18 09:45 05/23/18 09:47 05/23/18 09:58 05/23/18 11:00 White Blood Count 9.2 x10^3/uL Red Blood Count 3.34 x10^6/uL Hemoglobin 9.1 g/dL Hematocrit 28.8 % Mean Corpuscular Volume 86 fL Mean Corpuscular Hemoglobin 27 pg Mean Corpuscular Hemoglobin Concent 32 g/dL Red Cell Distribution Width 14.3 % Platelet Count 270 x10^3/uL Prothrombin Time 14.3 SEC Prothromb Time International Ratio 1.1 Sodium Level 138 mmol/L Potassium Level 6.0 mmol/L Chloride Level 108 mmol/L Carbon Dioxide Level 20 mmol/L Anion Gap 10 Blood Urea Nitrogen 53 mg/dL Creatinine 3.6 mg/dL Estimated GFR (Cockcroft-Gault) 12.9 BUN/Creatinine Ratio 15 Glucose Level 222 mg/dL Calcium Level 8.0 mg/dL Magnesium Level 2.5 mg/dL Total Bilirubin 0.2 mg/dL Aspartate Amino Transf (AST/SGOT) 96 U/L Alanine Aminotransferase (ALT/SGPT) 170 U/L Alkaline Phosphatase 211 U/L Troponin I Quantitative < 0.017 ng/mL Total Protein 6.3 g/dL Albumin 2.5 g/dL Albumin/Globulin Ratio 0.7 O2 Saturation 99 % Arterial Blood pH 7.24 Arterial Blood pCO2 at Patient Temp 47 mmHg Arterial Blood pO2 at Patient Temp 164 mmHg Arterial Blood HCO3 19 mmol/L Arterial Blood Base Excess -8 mmol/L FiO2 100 Glucose (Fingerstick) 219 mg/dL Nasal Screen MRSA (PCR) Positive Test 05/23/18 13:00 05/23/18 16:45 05/23/18 17:13 05/23/18 17:45 Sodium Level 141 mmol/L Potassium Level 6.2 mmol/L Chloride Level 110 mmol/L Carbon Dioxide Level 21 mmol/L Anion Gap 10 Blood Urea Nitrogen 54 mg/dL Creatinine 3.7 mg/dL Estimated GFR (Cockcroft-Gault) 12.5 Glucose Level 221 mg/dL Calcium Level 7.7 mg/dL Magnesium Level 2.2 mg/dL Troponin I Quantitative 0.145 ng/mL 0.195 ng/mL Hepatitis B Surface Antigen Nonreactive Hepatitis B Surface Antibody Nonreactive Glucose (Fingerstick) 146 mg/dL Test 05/23/18 22:06 05/24/18 06:00 Glucose (Fingerstick) 106 mg/dL Sodium Level 141 mmol/L Potassium Level 3.7 mmol/L Chloride Level 104 mmol/L Carbon Dioxide Level 31 mmol/L Anion Gap 6 Blood Urea Nitrogen 23 mg/dL Creatinine 2.3 mg/dL Estimated GFR (Cockcroft-Gault) 21.6 BUN/Creatinine Ratio 10 Glucose Level 141 mg/dL Calcium Level 7.1 mg/dL Total Bilirubin 0.3 mg/dL Aspartate Amino Transf (AST/SGOT) 75 U/L Alanine Aminotransferase (ALT/SGPT) 164 U/L Alkaline Phosphatase 174 U/L Troponin I Quantitative 0.094 ng/mL Total Protein 5.0 g/dL Albumin 2.1 g/dL Albumin/Globulin Ratio 0.7 Triglycerides Level 125 mg/dL Cholesterol Level 204 mg/dL LDL Cholesterol, Calculated 129 mg/dL VLDL Cholesterol, Calculated 25 mg/dL Non-HDL Cholesterol Calculated 154 mg/dL HDL Cholesterol 50 mg/dL Cholesterol/HDL Ratio 4.1 Thyroid Stimulating Hormone (TSH) 0.818 uIU/mL Imaging: CXR IMPRESSION: Bilateral pulmonary infiltrates have developed most compatible with pulmonary edema with probable small pleural effusions. Renal US IMPRESSION: 1. Elevated right greater than left renal resistive indices. This can be seen with intrinsic renal disease. 2. Limited exam due to body habitus and bowel gas. The midline structures, portions of the left kidney and ureteral jets are obscured. PE: GEN: NAD LUNGS: NC HEART: RRR ABD: S/ND/NT NEURO/PSYCH: A & O 3 A/P: S/p resp/cardiac arrest BERKLEY/CKD Nausea - EGD yesterday w/ normal esophagus, chronic gastritis, and normal duodenum Elevated LFTs - better H/o gastroparesis - GES in 2016 -- Continue support. AMINA GANT May 24, 2018 09:31
--- NOTE | 2018-05-24 09:48 | PDOC ---
SUBJECTIVE ROS No new concerns or complaints, UOP this am 200 ml , BP , O2 sats stable OBJECTIVE Vital Signs Vital Signs Date Time Temp Pulse Resp B/P (MAP) Pulse Ox O2 Delivery O2 Flow Rate FiO2 05/24/18 09:00 86 12 152/68 (96) 99 Nasal Cannula 2.0 05/24/18 07:00 98.4 98.4 I & 0 Intake and Output 05/24/18 06:59 Intake Total 1686 ml Output Total 800 ml Balance 886 ml Intake Oral 100 ml IV Total 1586 ml Output Urine Total 800 ml # Bowel Movements 1 PHYSICAL EXAM Physical Exam GEN: Awake, NAD HEEN: OM moist NECK: Supple CVS: RRR RESP: CTA, No Acc. Muscle Use GI: BS + ve, Non Tender, : No CVA tenderness, No Suprapubic Tenderness, No Frye Neuro- AXO x3 Skin No rash DIAGNOSIS/ASSESSMENT Assessment & Plan BERKLEY on CKD vs progression S/P Arrest following EGD as OP 3/ HD yesterday for hyperkalemia E-Lytes and acid base stable, Vol status stable, Hold off [employer] today Hyperkalemia- Normal today HD 3/6 cardiac Arrest following EGD Bradycardia CK D stage IV - as per last admission Confirmed by Dr. Reyes (eGFr 27 mL/m ) Acute on chronic possible systolic HF; CXR with pul edema Accelerated hypertension Chest pain Proteinuria: Nephrotic 10 gm in Feb 2018 At Home Low dose Lisinopril Anemia: Transfuse as needed. Discussed A/p with Pt and RN COMMENT/RELEVANT DATA Meds Current Medications Medications (Trade) Dose Ordered Sig/Jenna Start Time Stop Time Status Last Admin Dose Admin Acetaminophen/ Hydrocodone Bitart (Lortab 5/325) 1 tab HS 05/23/18 21:00 05/23/18 21:18 1 TAB Amlodipine Besylate (Norvasc) 5 mg DAILY 05/23/18 17:00 05/24/18 08:10 5 MG Aspirin (Children'S Aspirin) 81 mg DAILY 05/24/18 09:00 Aspirin (Ecotrin) 81 mg DAILYWBKFT 05/23/18 17:00 05/24/18 08:10 81 MG Atorvastatin Calcium (Lipitor) 10 mg HS 05/23/18 21:00 05/23/18 21:18 10 MG Carvedilol (Coreg) 12.5 mg BIDWMEALS 05/23/18 18:00 05/24/18 08:11 12.5 MG Dextrose (Dextrose 50%-Water Syringe) 12.5 gm PRN Q15MIN PRN 05/23/18 10:15 Fentanyl Citrate (Fentanyl 2ml Vial) 50 mcg PRN Q5MIN PRN 05/23/18 08:45 05/24/18 08:44 DC Hydralazine HCl (Apresoline Inj) 10 mg PRN Q4HRS PRN 05/23/18 11:15 05/23/18 11:31 10 MG Hydralazine HCl (Apresoline) 25 mg QID 05/23/18 18:00 05/24/18 08:10 25 MG Info (PHARMACY MONITORING -- do not chart) 1 each PRN DAILY PRN 05/23/18 16:30 Insulin Human Lispro (HumaLOG) 0-7 UNITS TIDWMEALS 05/23/18 12:00 05/23/18 11:33 4 UNITS Lidocaine HCl (Xylocaine-Mpf 1% 2ml Vial) 2 ml 1X PRN PRN 05/23/18 08:45 05/24/18 08:44 DC Lidocaine/Sodium Bicarbonate (Buffered Lidocaine 1%) 3 ml 1X ONCE 05/23/18 14:00 05/23/18 14:04 DC 05/23/18 14:29 3 ML Midazolam HCl (Versed) 2 mg PRN 1X PRN 05/23/18 08:45 05/24/18 08:44 DC Non-Formulary Medication (Dulaglutide (Trulicity)) 7.5 mg Tu 05/29/18 21:00 Ondansetron HCl (Zofran Odt) 4 mg Q6HRS 05/23/18 18:00 05/24/18 05:47 4 MG Polyethylene Glycol (miraLAX PACKET) 17 gm DAILY 05/24/18 09:00 Propofol 20 ml @ As Directed STK-MED ONCE 05/23/18 09:15 05/23/18 09:16 DC Ringer's Solution 1,000 ml @ 125 mls/hr Q8H 05/23/18 08:37 05/23/18 10:21 DC Sodium Polystyrene Sulfonate (Kayexalate) 30 gm 1X ONCE 05/23/18 11:00 05/23/18 11:01 DC 05/23/18 11:30 30 GM Sodium Chloride 1,000 ml @ 400 mls/hr Q2H30M PRN 05/23/18 15:30 05/24/18 03:29 DC Lab Laboratory Tests Test 05/23/18 09:45 05/23/18 09:47 05/23/18 09:58 05/23/18 11:00 White Blood Count 9.2 x10^3/uL (4.0-11.0) Red Blood Count 3.34 x10^6/uL (3.50-5.40) Hemoglobin 9.1 g/dL (12.0-15.5) Hematocrit 28.8 % (36.0-47.0) Mean Corpuscular Volume 86 fL (79-100) Mean Corpuscular Hemoglobin 27 pg (25-35) Mean Corpuscular Hemoglobin Concent 32 g/dL (31-37) Red Cell Distribution Width 14.3 % (11.5-14.5) Platelet Count 270 x10^3/uL (140-400) Prothrombin Time 14.3 SEC (11.7-14.0) Prothromb Time International Ratio 1.1 (0.8-1.1) Sodium Level 138 mmol/L (136-145) Potassium Level 6.0 mmol/L (3.5-5.1) Chloride Level 108 mmol/L (98-107) Carbon Dioxide Level 20 mmol/L (21-32) Anion Gap 10 (6-14) Blood Urea Nitrogen 53 mg/dL (7-20) Creatinine 3.6 mg/dL (0.6-1.0) Estimated GFR (Cockcroft-Gault) 12.9 BUN/Creatinine Ratio 15 (6-20) Glucose Level 222 mg/dL (70-99) Calcium Level 8.0 mg/dL (8.5-10.1) Magnesium Level 2.5 mg/dL (1.8-2.4) Total Bilirubin 0.2 mg/dL (0.2-1.0) Aspartate Amino Transf (AST/SGOT) 96 U/L (15-37) Alanine Aminotransferase (ALT/SGPT) 170 U/L (14-59) Alkaline Phosphatase 211 U/L (46-116) Troponin I Quantitative < 0.017 ng/mL (0.000-0.055) Total Protein 6.3 g/dL (6.4-8.2) Albumin 2.5 g/dL (3.4-5.0) Albumin/Globulin Ratio 0.7 (1.0-1.7) O2 Saturation 99 % (92-99) Arterial Blood pH 7.24 (7.35-7.45) Arterial Blood pCO2 at Patient Temp 47 mmHg (35-46) Arterial Blood pO2 at Patient Temp 164 mmHg (65-108) Arterial Blood HCO3 19 mmol/L (21-28) Arterial Blood Base Excess -8 mmol/L (-3-3) FiO2 100 Glucose (Fingerstick) 219 mg/dL (70-99) Nasal Screen MRSA (PCR) Positive (Negative) Test 05/23/18 13:00 05/23/18 16:45 05/23/18 17:13 05/23/18 17:45 Sodium Level 141 mmol/L (136-145) Potassium Level 6.2 mmol/L (3.5-5.1) Chloride Level 110 mmol/L (98-107) Carbon Dioxide Level 21 mmol/L (21-32) Anion Gap 10 (6-14) Blood Urea Nitrogen 54 mg/dL (7-20) Creatinine 3.7 mg/dL (0.6-1.0) Estimated GFR (Cockcroft-Gault) 12.5 Glucose Level 221 mg/dL (70-99) Calcium Level 7.7 mg/dL (8.5-10.1) Magnesium Level 2.2 mg/dL (1.8-2.4) Troponin I Quantitative 0.145 ng/mL (0.000-0.055) 0.195 ng/mL (0.000-0.055) Hepatitis B Surface Antigen Nonreactive (Nonreactive) Hepatitis B Surface Antibody Nonreactive Glucose (Fingerstick) 146 mg/dL (70-99) Test 05/23/18 22:06 05/24/18 06:00 Glucose (Fingerstick) 106 mg/dL (70-99) Sodium Level 141 mmol/L (136-145) Potassium Level 3.7 mmol/L (3.5-5.1) Chloride Level 104 mmol/L (98-107) Carbon Dioxide Level 31 mmol/L (21-32) Anion Gap 6 (6-14) Blood Urea Nitrogen 23 mg/dL (7-20) Creatinine 2.3 mg/dL (0.6-1.0) Estimated GFR (Cockcroft-Gault) 21.6 BUN/Creatinine Ratio 10 (6-20) Glucose Level 141 mg/dL (70-99) Calcium Level 7.1 mg/dL (8.5-10.1) Total Bilirubin 0.3 mg/dL (0.2-1.0) Aspartate Amino Transf (AST/SGOT) 75 U/L (15-37) Alanine Aminotransferase (ALT/SGPT) 164 U/L (14-59) Alkaline Phosphatase 174 U/L (46-116) Troponin I Quantitative 0.094 ng/mL (0.000-0.055) Total Protein 5.0 g/dL (6.4-8.2) Albumin 2.1 g/dL (3.4-5.0) Albumin/Globulin Ratio 0.7 (1.0-1.7) Triglycerides Level 125 mg/dL (0-150) Cholesterol Level 204 mg/dL (0-200) LDL Cholesterol, Calculated 129 mg/dL (0-100) VLDL Cholesterol, Calculated 25 mg/dL (0-40) Non-HDL Cholesterol Calculated 154 mg/dL (0-129) HDL Cholesterol 50 mg/dL (40-60) Cholesterol/HDL Ratio 4.1 Thyroid Stimulating Hormone (TSH) 0.818 uIU/mL (0.358-3.74) Results All relevant outside records, renal labs, imaging studies, telemetry/EKG's were reviewed. Other Renal US- 1. Elevated right greater than left renal resistive indices. This can be seen with intrinsic renal disease. 2. Limited exam due to body habitus and bowel gas. The midline structures, portions of the left kidney and ureteral jets are obscured. PATRICIA CORONADO MD May 24, 2018 09:48
[2018-05-24 10:05] LABS: BILIRUBIN,URINE NEGATIVE (NEG); CLARITY,URINE CLEAR; COLOR,URINE YELLOW; NITRITE,URINE NEGATIVE (NEG); PH,URINE 7.5; PROTEIN,URINE >=300 mg/dL (NEG-TRACE); UROBILINOGEN,URINE 0.2 mg/dL (0.2 mg/dL)
[2018-05-24 10:22] LABS: BACTERIA,URINE FEW /HPF (0-FEW); RBC,URINE 0 /HPF (0-2); SQUAMOUS EPITHELIAL CELL,UR MOD /LPF
--- NOTE | 2018-05-24 10:34 | PDOC ---
PROGRESS NOTES Subjective Subjective slightly better today Objective Objective Vital Signs Date Time Temp Pulse Resp B/P (MAP) Pulse Ox O2 Delivery O2 Flow Rate FiO2 05/24/18 10:00 87 12 160/79 (106) 99 Nasal Cannula 2.0 05/24/18 07:00 98.4 98.4 Intake and Output 05/24/18 06:59 Intake Total 1686 ml Output Total 800 ml Balance 886 ml Intake Oral 100 ml IV Total 1586 ml Output Urine Total 800 ml # Bowel Movements 1 Physical Exam Abdomen: Soft Heart: Regular rate, Normal S1, Normal S2, Other (2/6 systolic murmur ) Extremities: Other (1+ bilateral LE edema ) General: Alert, Oriented X3, Cooperative, No acute distress HEENT: Atraumatic, Mucous membr. moist/pink Lungs: Other (faint crackles, diminished bases ) MUSCULOSKELETAL: Osteoarthritic changes both hands Neck: No JVD Neuro: Normal speech, Sensation intact Psych/Mental Status: Mental status NL, Mood NL Skin: No breakdown, No significant lesion Assessment Assessment FINAL IMPRESSION: 1. Code blue. The patient has developed bradycardia, unresponsive, Code blue was called, Pt was revived with 2 rounds of CPR and 1 epinephrine. 2. Hyperkalemia. 6.0 3. Acute on chronic renal failure. Her baseline creatinine 2.5, now is 3.6. 4. Diabetes. 5. Hypertension. 6. Hyperlipidemia. 7. Pulmonary edema. 8. Diabetic with gastroparesis. PLAN: Dialysis catheter placed Emergency dialysis done yesterday. cardic cath tomorrow morning. troponin elevated 1.6. echo 40 % ejf sono kidney ch renal disease. pot down to 4.2 today At this time, was admit to hospital, seen by Cardiology. Echocardiogram shows 40% ejection fraction. The patient seen by Nephrology, given Kayexalate for hyperkalemia, did not improve. She is going to get temporary dialysis catheter and dialysis today and she is going to go come of the fluid off and monitor EKG, cardiac enzymes for next 24 hours. We will resume some of the home medications. Comment Review of Relevant I have reviewed the following items yana (where applicable) has been applied. Labs Laboratory Tests Test 05/23/18 11:00 05/23/18 13:00 05/23/18 16:45 05/23/18 17:13 Nasal Screen MRSA (PCR) Positive (Negative) Sodium Level 141 mmol/L (136-145) Potassium Level 6.2 mmol/L (3.5-5.1) Chloride Level 110 mmol/L (98-107) Carbon Dioxide Level 21 mmol/L (21-32) Anion Gap 10 (6-14) Blood Urea Nitrogen 54 mg/dL (7-20) Creatinine 3.7 mg/dL (0.6-1.0) Estimated GFR (Cockcroft-Gault) 12.5 Glucose Level 221 mg/dL (70-99) Calcium Level 7.7 mg/dL (8.5-10.1) Magnesium Level 2.2 mg/dL (1.8-2.4) Troponin I Quantitative 0.145 ng/mL (0.000-0.055) Hepatitis B Surface Antigen Nonreactive (Nonreactive) Hepatitis B Surface Antibody Nonreactive Glucose (Fingerstick) 146 mg/dL (70-99) Test 05/23/18 17:45 05/23/18 22:06 05/24/18 06:00 05/24/18 09:55 Troponin I Quantitative 0.195 ng/mL (0.000-0.055) 0.094 ng/mL (0.000-0.055) Glucose (Fingerstick) 106 mg/dL (70-99) Sodium Level 141 mmol/L (136-145) Potassium Level 3.7 mmol/L (3.5-5.1) Chloride Level 104 mmol/L (98-107) Carbon Dioxide Level 31 mmol/L (21-32) Anion Gap 6 (6-14) Blood Urea Nitrogen 23 mg/dL (7-20) Creatinine 2.3 mg/dL (0.6-1.0) Estimated GFR (Cockcroft-Gault) 21.6 BUN/Creatinine Ratio 10 (6-20) Glucose Level 141 mg/dL (70-99) Calcium Level 7.1 mg/dL (8.5-10.1) Total Bilirubin 0.3 mg/dL (0.2-1.0) Aspartate Amino Transf (AST/SGOT) 75 U/L (15-37) Alanine Aminotransferase (ALT/SGPT) 164 U/L (14-59) Alkaline Phosphatase 174 U/L (46-116) Total Protein 5.0 g/dL (6.4-8.2) Albumin 2.1 g/dL (3.4-5.0) Albumin/Globulin Ratio 0.7 (1.0-1.7) Triglycerides Level 125 mg/dL (0-150) Cholesterol Level 204 mg/dL (0-200) LDL Cholesterol, Calculated 129 mg/dL (0-100) VLDL Cholesterol, Calculated 25 mg/dL (0-40) Non-HDL Cholesterol Calculated 154 mg/dL (0-129) HDL Cholesterol 50 mg/dL (40-60) Cholesterol/HDL Ratio 4.1 Thyroid Stimulating Hormone (TSH) 0.818 uIU/mL (0.358-3.74) Urine Collection Type Unknown Urine Color Yellow Urine Clarity Clear Urine pH 7.5 Urine Specific [place] 1.020 Urine Protein >=300 mg/dL (NEG-TRACE) Urine Glucose (UA) 250 mg/dL (NEG) Urine Ketones (Stick) Trace mg/dL (NEG) Urine Blood Negative (NEG) Urine Nitrite Negative (NEG) Urine Bilirubin Negative (NEG) Urine Urobilinogen Dipstick 0.2 mg/dL (0.2 mg/dL) Urine Leukocyte Esterase Negative (NEG) Urine RBC 0 /HPF (0-2) Urine WBC 1-4 /HPF (0-4) Urine Squamous Epithelial Cells Mod /LPF Urine Bacteria Few /HPF (0-FEW) Medications Current Medications Acetaminophen/ Hydrocodone Bitart (Lortab 5/325) 1 tab HS PO Last administered on 05/23/18at 21:18; Start 05/23/18 at 21:00 Amlodipine Besylate (Norvasc) 5 mg DAILY PO Last administered on 05/24/18at 08:10 ; Start 05/23/18 at 17:00 Aspirin (Children'S Aspirin) 81 mg DAILY PO ; Start 05/24/18 at 09:00 Aspirin (Ecotrin) 81 mg DAILYWBKFT PO Last administered on 05/24/18 08:10; Start 05/23/18 at 17:00 Atorvastatin Calcium (Lipitor) 10 mg HS PO Last administered on 05/23/18at 21:18 ; Start 05/23/18 at 21:00 Carvedilol (Coreg) 12.5 mg BIDWMEALS PO Last administered on 05/24/18at 08:11; Start 05/23/18 at 18:00 Famotidine (Pepcid) 20 mg DAILY PO ; Start 05/24/18 at 10:00 Hydralazine HCl (Apresoline Inj) 10 mg PRN Q4HRS PRN IVP ELEVATED BP, SEE COMMENTS Last administered on 05/23/18at 11:31; Start 05/23/18 at 11:15 Hydralazine HCl (Apresoline) 25 mg QID PO Last administered on 05/24/18at 08:10; Start 05/23/18 at 18:00 Info (PHARMACY MONITORING -- do not chart) 1 each PRN DAILY PRN MC SEE COMMENTS ; Start 05/23/18 at 16:30; Stop 05/23/18 at 16:41; Status DC Info (PHARMACY MONITORING -- do not chart) 1 each PRN DAILY PRN MC SEE COMMENTS ; Start 05/23/18 at 16:30 Insulin Human Lispro (HumaLOG) 0-7 UNITS TIDWMEALS SQ Last administered on at 11:33; Start 05/23/18 at 12:00 Lidocaine/Sodium Bicarbonate (Buffered Lidocaine 1%) 3 ml 1X ONCE INJ Last administered on 05/23/18at 14:29; Start 05/23/18 at 14:00; Stop 05/23/18 at 14:04; Status DC Lidocaine/Sodium Bicarbonate (Buffered Lidocaine 1%) 3 ml STK-MED ONCE .ROUTE ; Start 05/23/18 at 13:59; Stop 05/23/18 at 14:00; Status DC Non-Formulary Medication (Dulaglutide (Trulicity)) 7.5 mg Tu SQ ; Start at 21:00 Ondansetron HCl (Zofran Odt) 4 mg Q6HRS PO Last administered on 05/24/18at 05:47 ; Start 05/23/18 at 18:00 Polyethylene Glycol (miraLAX PACKET) 17 gm DAILY PO ; Start 05/24/18 at 09:00 Sodium Polystyrene Sulfonate (Kayexalate) 30 gm 1X ONCE PO Last administered on 05/23/18at 11:30; Start 05/23/18 at 11:00; Stop 05/23/18 at 11:01; Status DC Sodium Chloride 1,000 ml @ 100 mls/hr 1X ONCE IV Last administered on at 11:35; Start 05/23/18 at 11:00; Stop 05/23/18 at 20:59; Status DC Sodium Chloride 1,000 ml @ 400 mls/hr Q2H30M PRN IV PATENCY; Start 05/23/18 at 15:30; Stop 05/24/18 at 03:29; Status DC Sodium Chloride 1,000 ml @ 1,000 mls/hr Q1H PRN IV hypotension; Start 05/23/18 at 15:30; Stop 05/23/18 at 21:29; Status DC Vitals/I & O Vital Sign - Last 24 Hours 05/23/18 05/23/18 05/23/18 05/23/18 11:31 12:21 13:07 14:00 Temp 98.7 98.7 Pulse 70 73 73 Resp 18 18 B/P (MAP) 191/93 153/64 (93) 136/90 (105) Pulse Ox 98 97 O2 Delivery Nasal Cannula O2 Flow Rate 4.0 4.0 4.0 05/23/18 05/23/18 05/23/18 05/23/18 15:00 16:00 16:00 17:00 Pulse 80 80 82 Resp 18 18 18 B/P (MAP) 153/66 (95) 174/66 (102) 181/63 (102) Pulse Ox 97 97 97 O2 Delivery Nasal Cannula O2 Flow Rate 4.0 4.0 4.0 4.0 05/23/18 05/23/18 05/23/18 05/23/18 18:00 18:00 18:03 18:04 Pulse 80 86 80 80 Resp 18 B/P (MAP) 185/66 193/83 (119) 153/66 153/66 Pulse Ox 97 O2 Flow Rate 4.0 05/23/18 05/23/18 05/23/18 05/23/18 18:22 19:00 20:00 20:00 Pulse 90 93 91 Resp 18 25 25 B/P (MAP) 153/66 (95) 183/74 (110) 180/70 (106) Pulse Ox 97 99 99 O2 Delivery Nasal Cannula O2 Flow Rate 4.0 2.0 2.0 2.0 05/23/18 05/23/18 05/23/18 05/23/18 21:00 21:17 21:18 22:00 Temp 98.1 98.1 Pulse 91 93 85 Resp 15 14 B/P (MAP) 167/81 (109) 167/81 147/81 (103) Pulse Ox 98 99 98 O2 Delivery Nasal Cannula O2 Flow Rate 2.0 2.0 2.0 05/23/18 05/23/18 05/23/18 05/23/18 22:21 23:00 23:59 23:59 Temp 98.6 98.6 Pulse 82 81 Resp 14 12 12 B/P (MAP) 167/61 (96) 153/68 (96) Pulse Ox 99 99 98 O2 Delivery Nasal Cannula Nasal Cannula O2 Flow Rate 2.0 2.0 2.0 2.0 05/24/18 05/24/18 05/24/18 05/24/18 01:00 02:15 03:00 04:00 Pulse 77 80 77 Resp 12 14 B/P (MAP) 176/88 (117) 150/55 (86) 166/66 (99) Pulse Ox 98 98 99 O2 Delivery Nasal Cannula Nasal Cannula Nasal Cannula Nasal Cannula O2 Flow Rate 2.0 2.0 2.0 2.0 05/24/18 05/24/18 05/24/18 05/24/18 04:00 05:00 06:00 07:00 Temp 98.1 98.4 98.1 98.4 Pulse 83 79 81 82 Resp 14 18 12 12 B/P (MAP) 175/79 (111) 180/82 (114) 175/66 (102) 192/76 (114) Pulse Ox 98 98 99 99 O2 Delivery Nasal Cannula Nasal Cannula Nasal Cannula Nasal Cannula O2 Flow Rate 2.0 2.0 2.0 2.0 05/24/18 05/24/18 05/24/18 05/24/18 08:00 08:00 08:10 08:10 Pulse 84 81 81 Resp 12 B/P (MAP) 173/78 (109) 175/66 175/66 Pulse Ox 96 O2 Delivery Nasal Cannula Nasal Cannula O2 Flow Rate 2.0 2.0 05/24/18 05/24/18 05/24/18 08:11 09:00 10:00 Pulse 81 86 87 Resp 12 12 B/P (MAP) 175/66 152/68 (96) 160/79 (106) Pulse Ox 99 99 O2 Delivery Nasal Cannula Nasal Cannula O2 Flow Rate 2.0 2.0 Intake and Output 05/23/18 05/23/18 05/24/18 14:59 22:59 06:59 Intake Total 0 ml 0 ml 1686 ml Output Total 400 ml 400 ml Balance 0 ml -400 ml 1286 ml JL MARTINEZ MD May 24, 2018 10:34
[2018-05-24] MEDS: FAMOTIDINE 20 MG TABLET. PO SCH (10:51)
--- NOTE | 2018-05-24 16:05 | NUR ---
SS following for discharge planning. SS reviewed pt chart. Pt is from [facility], ; fax [phone]. SS contacted [facility] and confirmed that pt is a LTC resident from there facility and is able to return when medically stable for discharge.
--- NOTE | 2018-05-24 16:33 | PDOC ---
PROGRESS NOTES Subjective Subjective Patient feeling better. No chest pain Objective Objective Vital Signs Date Time Temp Pulse Resp B/P (MAP) Pulse Ox O2 Delivery O2 Flow Rate FiO2 05/24/18 16:00 Nasal Cannula 2.0 05/24/18 16:00 98.9 86 17 166/59 (94) 96 98.9 Intake and Output 05/24/18 07:00 Intake Total 1686 ml Output Total 800 ml Balance 886 ml Intake Oral 100 ml IV Total 1586 ml Output Urine Total 800 ml # Bowel Movements 1 Physical Exam Abdomen: Soft Heart: Regular rate, Normal S1, Normal S2, Other (2/6 systolic murmur ) Extremities: Other (1+ bilateral LE edema ) General: Alert, Oriented X3, Cooperative, No acute distress HEENT: Atraumatic, Mucous membr. moist/pink Lungs: Other (faint crackles, diminished bases ) MUSCULOSKELETAL: Osteoarthritic changes both hands Neck: No JVD Neuro: Normal speech, Sensation intact Psych/Mental Status: Mental status NL, Mood NL Skin: No breakdown, No significant lesion Assessment Assessment 1. Acute Respiratory failure/cardiac arrest following EGD; s/p 2 rounds of CPR and 1 dose of Epi with ROSC. presently maintaining SR. Most probably vasovagal 2. Acute on chronic systolic HF; Echo showed LVEF 45% with moderate MR. Better compensated 3. Accelerated hypertension: better controlled 4. Chest pain, with typical features concerning for unstable angina. Plan cardiac cath once active issues resolve - discussed with Nephrology. Consensus to defer cardiac cath till monday 5. BERKLEY on CKD4; HD per nephrology 6. DM, II; as per PCP Comment Review of Relevant I have reviewed the following items yana (where applicable) has been applied. Labs Laboratory Tests Test 05/23/18 16:45 05/23/18 17:13 05/23/18 17:45 05/23/18 22:06 Hepatitis B Surface Antigen Nonreactive (Nonreactive) Hepatitis B Surface Antibody Nonreactive Glucose (Fingerstick) 146 mg/dL (70-99) 106 mg/dL (70-99) Troponin I Quantitative 0.195 ng/mL (0.000-0.055) Test 05/24/18 06:00 05/24/18 09:55 05/24/18 10:52 Sodium Level 141 mmol/L (136-145) Potassium Level 3.7 mmol/L (3.5-5.1) Chloride Level 104 mmol/L (98-107) Carbon Dioxide Level 31 mmol/L (21-32) Anion Gap 6 (6-14) Blood Urea Nitrogen 23 mg/dL (7-20) Creatinine 2.3 mg/dL (0.6-1.0) Estimated GFR (Cockcroft-Gault) 21.6 BUN/Creatinine Ratio 10 (6-20) Glucose Level 141 mg/dL (70-99) Calcium Level 7.1 mg/dL (8.5-10.1) Total Bilirubin 0.3 mg/dL (0.2-1.0) Aspartate Amino Transf (AST/SGOT) 75 U/L (15-37) Alanine Aminotransferase (ALT/SGPT) 164 U/L (14-59) Alkaline Phosphatase 174 U/L (46-116) Troponin I Quantitative 0.094 ng/mL (0.000-0.055) Total Protein 5.0 g/dL (6.4-8.2) Albumin 2.1 g/dL (3.4-5.0) Albumin/Globulin Ratio 0.7 (1.0-1.7) Triglycerides Level 125 mg/dL (0-150) Cholesterol Level 204 mg/dL (0-200) LDL Cholesterol, Calculated 129 mg/dL (0-100) VLDL Cholesterol, Calculated 25 mg/dL (0-40) Non-HDL Cholesterol Calculated 154 mg/dL (0-129) HDL Cholesterol 50 mg/dL (40-60) Cholesterol/HDL Ratio 4.1 Thyroid Stimulating Hormone (TSH) 0.818 uIU/mL (0.358-3.74) Urine Collection Type Unknown Urine Color Yellow Urine Clarity Clear Urine pH 7.5 Urine Specific [place] 1.020 Urine Protein >=300 mg/dL (NEG-TRACE) Urine Glucose (UA) 250 mg/dL (NEG) Urine Ketones (Stick) Trace mg/dL (NEG) Urine Blood Negative (NEG) Urine Nitrite Negative (NEG) Urine Bilirubin Negative (NEG) Urine Urobilinogen Dipstick 0.2 mg/dL (0.2 mg/dL) Urine Leukocyte Esterase Negative (NEG) Urine RBC 0 /HPF (0-2) Urine WBC 1-4 /HPF (0-4) Urine Squamous Epithelial Cells Mod /LPF Urine Bacteria Few /HPF (0-FEW) Glucose (Fingerstick) 160 mg/dL (70-99) Medications Current Medications Acetaminophen/ Hydrocodone Bitart (Lortab 5/325) 1 tab HS PO Last administered on 05/23/18 21:18; Start 05/23/18 at 21:00 Amlodipine Besylate (Norvasc) 5 mg DAILY PO Last administered on 05/24/18 08:10 ; Start 05/23/18 at 17:00 Aspirin (Children'S Aspirin) 81 mg DAILY PO ; Start 05/24/18 at 09:00 Aspirin (Ecotrin) 81 mg DAILYWBKFT PO Last administered on 05/24/18 08:10; Start 05/23/18 at 17:00 Atorvastatin Calcium (Lipitor) 10 mg HS PO Last administered on 05/23/18 21:18 ; Start 05/23/18 at 21:00 Carvedilol (Coreg) 12.5 mg BIDWMEALS PO Last administered on 05/24/18 08:11; Start 05/23/18 at 18:00 Famotidine (Pepcid) 20 mg DAILY PO Last administered on 05/24/18 10:51; Start 05/24/18 at 10:00 Hydralazine HCl (Apresoline) 25 mg QID PO Last administered on 05/24/18 14:08; Start 05/23/18 at 18:00 Non-Formulary Medication (Dulaglutide (Trulicity)) 7.5 mg Tu SQ ; Start at 21:00 Ondansetron HCl (Zofran Odt) 4 mg Q6HRS PO Last administered on 05/24/18 10:51 ; Start 05/23/18 at 18:00 Polyethylene Glycol (miraLAX PACKET) 17 gm DAILY PO ; Start 05/24/18 at 09:00 Vitals/I & O Vital Sign - Last 24 Hours 05/23/18 05/23/18 05/23/18 05/23/18 17:00 18:00 18:00 18:03 Pulse 82 80 86 80 Resp 18 18 B/P (MAP) 181/63 (102) 185/66 193/83 (119) 153/66 Pulse Ox 97 97 O2 Flow Rate 4.0 4.0 05/23/18 05/23/18 05/23/18 05/23/18 18:04 18:22 19:00 20:00 Pulse 80 90 93 91 Resp 18 25 25 B/P (MAP) 153/66 153/66 (95) 183/74 (110) 180/70 (106) Pulse Ox 97 99 99 O2 Flow Rate 4.0 2.0 2.0 05/23/18 05/23/18 05/23/18 05/23/18 20:00 21:00 21:17 21:18 Pulse 91 93 Resp 15 B/P (MAP) 167/81 (109) 167/81 Pulse Ox 98 99 O2 Delivery Nasal Cannula Nasal Cannula O2 Flow Rate 2.0 2.0 2.0 05/23/18 05/23/18 05/23/18 05/23/18 22:00 22:21 23:00 23:59 Temp 98.1 98.1 Pulse 85 82 Resp 14 14 12 B/P (MAP) 147/81 (103) 167/61 (96) Pulse Ox 98 99 99 O2 Delivery Nasal Cannula Nasal Cannula O2 Flow Rate 2.0 2.0 2.0 2.0 05/23/18 05/24/18 05/24/18 05/24/18 23:59 01:00 02:15 03:00 Temp 98.6 98.6 Pulse 81 77 80 77 Resp 12 12 14 B/P (MAP) 153/68 (96) 176/88 (117) 150/55 (86) 166/66 (99) Pulse Ox 98 98 98 99 O2 Delivery Nasal Cannula Nasal Cannula Nasal Cannula O2 Flow Rate 2.0 2.0 2.0 2.0 05/24/18 05/24/18 05/24/18 05/24/18 04:00 04:00 05:00 06:00 Temp 98.1 98.1 Pulse 83 79 81 Resp 14 18 12 B/P (MAP) 175/79 (111) 180/82 (114) 175/66 (102) Pulse Ox 98 98 99 O2 Delivery Nasal Cannula Nasal Cannula Nasal Cannula Nasal Cannula O2 Flow Rate 2.0 2.0 2.0 2.0 05/24/18 05/24/18 05/24/18 05/24/18 07:00 08:00 08:00 08:10 Temp 98.4 98.4 Pulse 82 84 81 Resp 12 12 B/P (MAP) 192/76 (114) 173/78 (109) 175/66 Pulse Ox 99 96 O2 Delivery Nasal Cannula Nasal Cannula Nasal Cannula O2 Flow Rate 2.0 2.0 2.0 05/24/18 05/24/18 05/24/18 05/24/18 08:10 08:11 09:00 10:00 Pulse 81 81 86 87 Resp 12 12 B/P (MAP) 175/66 175/66 152/68 (96) 160/79 (106) Pulse Ox 99 99 O2 Delivery Nasal Cannula Nasal Cannula O2 Flow Rate 2.0 2.0 05/24/18 05/24/18 05/24/18 05/24/18 12:00 12:24 14:08 16:00 Temp 98.4 98.9 98.4 98.9 Pulse 87 87 86 Resp 17 B/P (MAP) 156/79 (104) 156/79 166/59 (94) Pulse Ox 99 96 O2 Delivery Nasal Cannula Nasal Cannula Nasal Cannula O2 Flow Rate 2.0 2.0 2.0 05/24/18 16:00 O2 Delivery Nasal Cannula O2 Flow Rate 2.0 Intake and Output 05/23/18 05/23/18 05/24/18 15:00 23:00 07:00 Intake Total 0 ml 0 ml 1686 ml Output Total 400 ml 400 ml Balance 0 ml -400 ml 1286 ml LISS DELUNA MD May 24, 2018 16:33
[2018-05-24 17:17] LABS: CALCIUM 7.3 mg/dL (8.5-10.1); CREATININE 2.6 mg/dL (0.6-1.0); GFR 18.8; POTASSIUM 3.8 mmol/L (3.5-5.1)
[2018-05-24] MEDS: ATORVASTATIN CALCIUM 10 MG TABLET. PO SCH (20:50)
[2018-05-24] MEDS: HYDROcodone/APAP 5/325MG 1 TAB TABLET PO SCH (20:50)
[2018-05-24 23:15] LABS: HEMOGLOBIN A1C 6.5 % (4.8-5.6)
[2018-05-25] VITALS (8 sets, daily range): BP systolic 144–200; BP diastolic 58–91
[2018-05-25 05:44] LABS: BASO % 1 % (0-3); EOS # 0.1 x10^3/uL (0.0-0.7); EOS % 2 % (0-3); HEMOGLOBIN 7.1 g/dL (12.0-15.5); LYMPH # 1.1 x10^3/uL (1.0-4.8); LYMPH % 15 % (24-48); MEAN CORPUSCULAR HEMOGLOBIN 27 pg (25-35); MEAN CORPUSCULAR HGB CONC 32 g/dL (31-37); MEAN CORPUSCULAR VOLUME 84 fL (79-100); MONO # 0.8 x10^3/uL (0.0-1.1); MONO % 11 % (0-9); NEUT # 5.2 x10^3uL (1.8-7.7); NEUT % 72 % (31-73); PLATELET COUNT 190 x10^3/uL (140-400); RED BLOOD COUNT 2.61 x10^6/uL (3.50-5.40); RED CELL DISTRIBUTION WIDTH 14.1 % (11.5-14.5); WHITE BLOOD COUNT 7.2 x10^3/uL (4.0-11.0)
[2018-05-25 05:54] LABS: CALCIUM 7.1 mg/dL (8.5-10.1); CREATININE 3.2 mg/dL (0.6-1.0); GFR 14.8; POTASSIUM 3.9 mmol/L (3.5-5.1)
[2018-05-25] MEDS: ONDANSETRON ODT 4 MG TAB.RAPDIS. PO SCH ×5 (06:00→23:38)
[2018-05-25] MEDS: INSULIN LISPRO 300 UNITS/3 ML INSULN.PEN. SQ SCH ×3 (08:00→15:36)
[2018-05-25] MEDS: amLODIPine BESYLATE 5 MG TABLET PO SCH (08:06)
[2018-05-25] MEDS: ASPIRIN ENTERIC COATED 81 MG TABLET.DR. PO SCH (08:06)
[2018-05-25] MEDS: hydrALAZINE 25 MG TABLET PO SCH ×4 (08:06→21:39)
[2018-05-25] MEDS: POLYETHYLENE GLYCOL 3350 17 GM PACKET. PO SCH (08:07)
[2018-05-25] MEDS: FAMOTIDINE 20 MG TABLET. PO SCH (08:07)
[2018-05-25] MEDS: ASPIRIN CHEWABLE 81 MG TABLET. PO SCH (08:07)
[2018-05-25] MEDS: CARVEDILOL 12.5 MG TABLET. PO SCH ×2 (08:07→16:11)
--- NOTE | 2018-05-25 09:24 | PDOC ---
SUBJECTIVE ROS No new concerns or complaints OBJECTIVE Vital Signs Vital Signs Date Time Temp Pulse Resp B/P (MAP) Pulse Ox O2 Delivery O2 Flow Rate FiO2 05/25/18 08:07 77 165/65 05/25/18 08:00 99.5 15 99 Nasal Cannula 2.0 99.5 I & 0 Intake and Output 05/25/18 07:00 Intake Total 4700 ml Output Total 650 ml Balance 4050 ml Intake Oral 200 ml IV Total 4500 ml Output Urine Total 650 ml # Voids 1 PHYSICAL EXAM Physical Exam GEN: Awake, NAD HEEN: OM moist NECK: Supple CVS: RRR RESP: CTA, No Acc. 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 Reyes (eGFr 27 mL/m ) Acute on chronic possible systolic HF; CXR with pul edema Accelerated hypertension Chest pain Proteinuria: Nephrotic 10 gm in Feb 2018 At Home Low dose Lisinopril Anemia: Transfuse as needed. Discussed A/p with Pt and RN COMMENT/RELEVANT DATA Meds Current Medications Medications (Trade) Dose Ordered Sig/Jenna Start Time Stop Time Status Last Admin Dose Admin Acetaminophen/ Hydrocodone Bitart (Lortab 5/325) 1 tab HS 05/23/18 21:00 05/24/18 20:50 1 TAB Amlodipine Besylate (Norvasc) 5 mg DAILY 05/23/18 17:00 05/25/18 08:06 5 MG Aspirin (Children'S Aspirin) 81 mg DAILY 05/24/18 09:00 Aspirin (Ecotrin) 81 mg DAILYWBKFT 05/23/18 17:00 05/25/18 08:06 81 MG Atorvastatin Calcium (Lipitor) 10 mg HS 05/23/18 21:00 05/24/18 20:50 10 MG Carvedilol (Coreg) 12.5 mg BIDWMEALS 05/23/18 18:00 05/25/18 08:07 12.5 MG Dextrose (Dextrose 50%-Water Syringe) 12.5 gm PRN Q15MIN PRN 05/23/18 10:15 Famotidine (Pepcid) 20 mg DAILY 05/24/18 10:00 05/25/18 08:07 20 MG Fentanyl Citrate (Fentanyl 2ml Vial) 50 mcg PRN Q5MIN PRN 05/23/18 08:45 05/24/18 08:44 DC Hydralazine HCl (Apresoline Inj) 10 mg PRN Q4HRS PRN 05/23/18 11:15 05/23/18 11:31 10 MG Hydralazine HCl (Apresoline) 25 mg QID 05/23/18 18:00 05/25/18 08:06 25 MG Info (PHARMACY MONITORING -- do not chart) 1 each PRN DAILY PRN 05/23/18 16:30 Insulin Human Lispro (HumaLOG) 0-7 UNITS TIDWMEALS 05/23/18 12:00 05/23/18 11:33 4 UNITS Lidocaine HCl (Xylocaine-Mpf 1% 2ml Vial) 2 ml 1X PRN PRN 05/23/18 08:45 05/24/18 08:44 DC Lidocaine/Sodium Bicarbonate (Buffered Lidocaine 1%) 3 ml 1X ONCE 05/23/18 14:00 05/23/18 14:04 DC 05/23/18 14:29 3 ML Midazolam HCl (Versed) 2 mg PRN 1X PRN 05/23/18 08:45 05/24/18 08:44 DC Non-Formulary Medication (Dulaglutide (Trulicity)) 7.5 mg Tu 05/29/18 21:00 Ondansetron HCl (Zofran Odt) 4 mg Q6HRS 05/23/18 18:00 05/24/18 17:46 4 MG Polyethylene Glycol (miraLAX PACKET) 17 gm DAILY 05/24/18 09:00 Propofol 20 ml @ As Directed STK-MED ONCE 05/23/18 09:15 05/23/18 09:16 DC Ringer's Solution 1,000 ml @ 125 mls/hr Q8H 05/23/18 08:37 05/23/18 10:21 DC Sodium Polystyrene Sulfonate (Kayexalate) 30 gm 1X ONCE 05/23/18 11:00 3/6/19 11:01 DC 05/23/18 11:30 30 GM Sodium Chloride 1,000 ml @ 400 mls/hr Q2H30M PRN 05/23/18 15:30 05/24/18 03:29 DC Lab Laboratory Tests Test 05/24/18 09:55 05/24/18 10:52 05/24/18 16:50 05/24/18 17:45 Urine Collection Type Unknown Urine Color Yellow Urine Clarity Clear Urine pH 7.5 Urine Specific [place] 1.020 Urine Protein >=300 mg/dL (NEG-TRACE) Urine Glucose (UA) 250 mg/dL (NEG) Urine Ketones (Stick) Trace mg/dL (NEG) Urine Blood Negative (NEG) Urine Nitrite Negative (NEG) Urine Bilirubin Negative (NEG) Urine Urobilinogen Dipstick 0.2 mg/dL (0.2 mg/dL) Urine Leukocyte Esterase Negative (NEG) Urine RBC 0 /HPF (0-2) Urine WBC 1-4 /HPF (0-4) Urine Squamous Epithelial Cells Mod /LPF Urine Bacteria Few /HPF (0-FEW) Glucose (Fingerstick) 160 mg/dL (70-99) 127 mg/dL (70-99) Sodium Level 140 mmol/L (136-145) Potassium Level 3.8 mmol/L (3.5-5.1) Chloride Level 104 mmol/L (98-107) Carbon Dioxide Level 29 mmol/L (21-32) Anion Gap 7 (6-14) Blood Urea Nitrogen 27 mg/dL (7-20) Creatinine 2.6 mg/dL (0.6-1.0) Estimated GFR (Cockcroft-Gault) 18.8 Glucose Level 144 mg/dL (70-99) Calcium Level 7.3 mg/dL (8.5-10.1) Test 05/24/18 20:54 05/25/18 05:30 05/25/18 08:09 Glucose (Fingerstick) 176 mg/dL (70-99) 141 mg/dL (70-99) White Blood Count 7.2 x10^3/uL (4.0-11.0) Red Blood Count 2.61 x10^6/uL (3.50-5.40) Hemoglobin 7.1 g/dL (12.0-15.5) Hematocrit 22.0 % (36.0-47.0) Mean Corpuscular Volume 84 fL (79-100) Mean Corpuscular Hemoglobin 27 pg (25-35) Mean Corpuscular Hemoglobin Concent 32 g/dL (31-37) Red Cell Distribution Width 14.1 % (11.5-14.5) Platelet Count 190 x10^3/uL (140-400) Neutrophils (%) (Auto) 72 % (31-73) Lymphocytes (%) (Auto) 15 % (24-48) Monocytes (%) (Auto) 11 % (0-9) Eosinophils (%) (Auto) 2 % (0-3) Basophils (%) (Auto) 1 % (0-3) Neutrophils # (Auto) 5.2 x10^3uL (1.8-7.7) Lymphocytes # (Auto) 1.1 x10^3/uL (1.0-4.8) Monocytes # (Auto) 0.8 x10^3/uL (0.0-1.1) Eosinophils # (Auto) 0.1 x10^3/uL (0.0-0.7) Basophils # (Auto) 0.0 x10^3/uL (0.0-0.2) Sodium Level 141 mmol/L (136-145) Potassium Level 3.9 mmol/L (3.5-5.1) Chloride Level 106 mmol/L (98-107) Carbon Dioxide Level 32 mmol/L (21-32) Anion Gap 3 (6-14) Blood Urea Nitrogen 30 mg/dL (7-20) Creatinine 3.2 mg/dL (0.6-1.0) Estimated GFR (Cockcroft-Gault) 14.8 Glucose Level 158 mg/dL (70-99) Calcium Level 7.1 mg/dL (8.5-10.1) Results All relevant outside records, renal labs, imaging studies, telemetry/EKG's were reviewed. PATRICIA CORONADO MD May 25, 2018 09:24
--- NOTE | 2018-05-25 10:13 | PDOC ---
PROGRESS NOTES Subjective Subjective feeling better today Objective Objective Vital Signs Date Time Temp Pulse Resp B/P (MAP) Pulse Ox O2 Delivery O2 Flow Rate FiO2 05/25/18 08:07 77 165/65 05/25/18 08:00 99.5 15 99 Nasal Cannula 2.0 99.5 Intake and Output 05/25/18 07:00 Intake Total 4700 ml Output Total 650 ml Balance 4050 ml Intake Oral 200 ml IV Total 4500 ml Output Urine Total 650 ml # Voids 1 Physical Exam Abdomen: Soft Heart: Regular rate, Normal S1, Normal S2, Other (2/6 systolic murmur ) Extremities: Other (1+ bilateral LE edema ) General: Alert, Oriented X3, Cooperative, No acute distress HEENT: Atraumatic, Mucous membr. moist/pink Lungs: Other (faint crackles, diminished bases ) MUSCULOSKELETAL: Osteoarthritic changes both hands Neck: No JVD Neuro: Normal speech, Sensation intact Psych/Mental Status: Mental status NL, Mood NL Skin: No breakdown, No significant lesion Assessment Assessment FINAL IMPRESSION: 1. Code blue. The patient has developed bradycardia, unresponsive, Code blue was called, Pt was revived with 2 rounds of CPR and 1 epinephrine. 2. Hyperkalemia. 6.0 3. Acute on chronic renal failure. Her baseline creatinine 2.5, now is 3.6. 4. Diabetes. 5. Hypertension. 6. Hyperlipidemia. 7. Pulmonary edema. 8. Diabetic with gastroparesis. PLAN: Dialysis today , perm dialysis catheter planned Emergency dialysis done 2 days ago. cardia cath monday morning. troponin elevated 1.6. echo 40 % ejf sono kidney ch renal disease. pot down to 4.2 today spoke with renal. Comment Review of Relevant I have reviewed the following items yana (where applicable) has been applied. Labs Laboratory Tests Test 05/24/18 10:52 05/24/18 16:50 05/24/18 17:45 05/24/18 20:54 Glucose (Fingerstick) 160 mg/dL (70-99) 127 mg/dL (70-99) 176 mg/dL (70-99) Sodium Level 140 mmol/L (136-145) Potassium Level 3.8 mmol/L (3.5-5.1) Chloride Level 104 mmol/L (98-107) Carbon Dioxide Level 29 mmol/L (21-32) Anion Gap 7 (6-14) Blood Urea Nitrogen 27 mg/dL (7-20) Creatinine 2.6 mg/dL (0.6-1.0) Estimated GFR (Cockcroft-Gault) 18.8 Glucose Level 144 mg/dL (70-99) Calcium Level 7.3 mg/dL (8.5-10.1) Test 05/25/18 05:30 05/25/18 08:09 White Blood Count 7.2 x10^3/uL (4.0-11.0) Red Blood Count 2.61 x10^6/uL (3.50-5.40) Hemoglobin 7.1 g/dL (12.0-15.5) Hematocrit 22.0 % (36.0-47.0) Mean Corpuscular Volume 84 fL (79-100) Mean Corpuscular Hemoglobin 27 pg (25-35) Mean Corpuscular Hemoglobin Concent 32 g/dL (31-37) Red Cell Distribution Width 14.1 % (11.5-14.5) Platelet Count 190 x10^3/uL (140-400) Neutrophils (%) (Auto) 72 % (31-73) Lymphocytes (%) (Auto) 15 % (24-48) Monocytes (%) (Auto) 11 % (0-9) Eosinophils (%) (Auto) 2 % (0-3) Basophils (%) (Auto) 1 % (0-3) Neutrophils # (Auto) 5.2 x10^3uL (1.8-7.7) Lymphocytes # (Auto) 1.1 x10^3/uL (1.0-4.8) Monocytes # (Auto) 0.8 x10^3/uL (0.0-1.1) Eosinophils # (Auto) 0.1 x10^3/uL (0.0-0.7) Basophils # (Auto) 0.0 x10^3/uL (0.0-0.2) Sodium Level 141 mmol/L (136-145) Potassium Level 3.9 mmol/L (3.5-5.1) Chloride Level 106 mmol/L (98-107) Carbon Dioxide Level 32 mmol/L (21-32) Anion Gap 3 (6-14) Blood Urea Nitrogen 30 mg/dL (7-20) Creatinine 3.2 mg/dL (0.6-1.0) Estimated GFR (Cockcroft-Gault) 14.8 Glucose Level 158 mg/dL (70-99) Calcium Level 7.1 mg/dL (8.5-10.1) Glucose (Fingerstick) 141 mg/dL (70-99) Medications Current Medications Non-Formulary Medication (Dulaglutide (Trulicity)) 7.5 mg Tu SQ ; Start at 21:00 Vitals/I & O Vital Sign - Last 24 Hours 05/24/18 05/24/18 05/24/18 05/24/18 12:00 12:24 14:08 16:00 Temp 98.4 98.9 98.4 98.9 Pulse 87 87 86 Resp 17 B/P (MAP) 156/79 (104) 156/79 166/59 (94) Pulse Ox 99 96 O2 Delivery Nasal Cannula Nasal Cannula Nasal Cannula O2 Flow Rate 2.0 2.0 2.0 05/24/18 05/24/18 05/24/18 05/24/18 16:00 16:58 16:58 20:00 Temp 99.2 99.2 Pulse 85 85 86 Resp 19 B/P (MAP) 156/63 156/63 156/50 (85) Pulse Ox 98 O2 Delivery Nasal Cannula Nasal Cannula O2 Flow Rate 2.0 2.0 05/24/18 05/24/18 05/24/18 05/25/18 20:00 20:50 20:50 00:00 Temp 98.4 98.4 Pulse 86 76 Resp 27 B/P (MAP) 148/52 147/68 (94) Pulse Ox 98 100 O2 Delivery Nasal Cannula Nasal Cannula Nasal Cannula O2 Flow Rate 2.0 3.0 2.0 05/25/18 05/25/18 05/25/18 05/25/18 04:00 08:00 08:00 08:06 Temp 98.5 99.5 98.5 99.5 Pulse 77 80 77 Resp 14 15 B/P (MAP) 165/65 (98) 158/58 (91) 165/65 Pulse Ox 99 99 O2 Delivery Nasal Cannula Nasal Cannula Nasal Cannula O2 Flow Rate 2.0 2.0 2.0 05/25/18 05/25/18 08:06 08:07 Pulse 77 77 B/P (MAP) 165/65 165/65 Intake and Output 05/24/18 05/24/18 05/25/18 15:00 23:00 07:00 Intake Total 4500 ml 0 ml 200 ml Output Total 650 ml 0 ml Balance 3850 ml 0 ml 200 ml JL MARTINEZ MD May 25, 2018 10:13
--- NOTE | 2018-05-25 10:47 | PDOC ---
Subjective: Subjective: Says eating okay and has stooled. Denies pain. Objective: Objective: Reviewed w/ RN - plans for long-term HD and cardiac cath on Mon. Vital Signs: Vital Signs Date Time Temp Pulse Resp B/P (MAP) Pulse Ox O2 Delivery O2 Flow Rate FiO2 05/25/18 08:07 77 165/65 05/25/18 08:00 99.5 15 99 Nasal Cannula 2.0 99.5 Labs: Laboratory Tests Test 05/24/18 10:52 05/24/18 16:50 05/24/18 17:45 05/24/18 20:54 Glucose (Fingerstick) 160 mg/dL 127 mg/dL 176 mg/dL Sodium Level 140 mmol/L Potassium Level 3.8 mmol/L Chloride Level 104 mmol/L Carbon Dioxide Level 29 mmol/L Anion Gap 7 Blood Urea Nitrogen 27 mg/dL Creatinine 2.6 mg/dL Estimated GFR (Cockcroft-Gault) 18.8 Glucose Level 144 mg/dL Calcium Level 7.3 mg/dL Test 05/25/18 05:30 05/25/18 08:09 White Blood Count 7.2 x10^3/uL Red Blood Count 2.61 x10^6/uL Hemoglobin 7.1 g/dL Hematocrit 22.0 % Mean Corpuscular Volume 84 fL Mean Corpuscular Hemoglobin 27 pg Mean Corpuscular Hemoglobin Concent 32 g/dL Red Cell Distribution Width 14.1 % Platelet Count 190 x10^3/uL Neutrophils (%) (Auto) 72 % Lymphocytes (%) (Auto) 15 % Monocytes (%) (Auto) 11 % Eosinophils (%) (Auto) 2 % Basophils (%) (Auto) 1 % Neutrophils # (Auto) 5.2 x10^3uL Lymphocytes # (Auto) 1.1 x10^3/uL Monocytes # (Auto) 0.8 x10^3/uL Eosinophils # (Auto) 0.1 x10^3/uL Basophils # (Auto) 0.0 x10^3/uL Sodium Level 141 mmol/L Potassium Level 3.9 mmol/L Chloride Level 106 mmol/L Carbon Dioxide Level 32 mmol/L Anion Gap 3 Blood Urea Nitrogen 30 mg/dL Creatinine 3.2 mg/dL Estimated GFR (Cockcroft-Gault) 14.8 Glucose Level 158 mg/dL Calcium Level 7.1 mg/dL Glucose (Fingerstick) 141 mg/dL PE: GEN: NAD LUNGS: CTAB HEART: RRR ABD: NABS, S/ND/NT NEURO/PSYCH: A & O 3 A/P: S/p resp/cardiac arrest ESRD on HD Nausea - resolved -- Stable from GI standpoint, will follow. AMINA GANT May 25, 2018 10:47
[2018-05-25] MEDS ORDERED: IV NORMAL SALINE 1000ML BAG 1,000 ML IV PRN ×2 (11:14)
[2018-05-25] MEDS ORDERED: 0.9 % SODIUM CHLORIDE 10 ML DISP.SYRIN. IV PRN ×2 (11:15)
[2018-05-25] MEDS ORDERED: DIALYSIS PATIENT. MC PRN ×2 (11:15)
[2018-05-25] MEDS: ATORVASTATIN CALCIUM 10 MG TABLET. PO SCH (21:38)
[2018-05-25] MEDS: HYDROcodone/APAP 5/325MG 1 TAB TABLET PO SCH (21:39)
[2018-05-26] VITALS (7 sets, daily range): BP systolic 139–179; BP diastolic 62–74
[2018-05-26] MEDS: hydrALAZINE 20 MG/ML VIAL. IVP PRN ×2 (04:04→15:22)
[2018-05-26 05:21] LABS: BASO # 0.1 x10^3/uL (0.0-0.2); BASO % 1 % (0-3); EOS # 0.3 x10^3/uL (0.0-0.7); EOS % 4 % (0-3); HEMATOCRIT 22.3 % (36.0-47.0); HEMOGLOBIN 7.3 g/dL (12.0-15.5); LYMPH # 1.7 x10^3/uL (1.0-4.8); LYMPH % 24 % (24-48); MEAN CORPUSCULAR HEMOGLOBIN 28 pg (25-35); MEAN CORPUSCULAR HGB CONC 33 g/dL (31-37); MEAN CORPUSCULAR VOLUME 84 fL (79-100); MONO # 0.7 x10^3/uL (0.0-1.1); MONO % 10 % (0-9); NEUT # 4.3 x10^3uL (1.8-7.7); NEUT % 61 % (31-73); PLATELET COUNT 192 x10^3/uL (140-400); RED BLOOD COUNT 2.66 x10^6/uL (3.50-5.40); RED CELL DISTRIBUTION WIDTH 13.9 % (11.5-14.5); WHITE BLOOD COUNT 7.1 x10^3/uL (4.0-11.0)
[2018-05-26 05:44] LABS: CALCIUM 7.5 mg/dL (8.5-10.1); CREATININE 2.7 mg/dL (0.6-1.0); POTASSIUM 3.9 mmol/L (3.5-5.1)
[2018-05-26] MEDS: ONDANSETRON ODT 4 MG TAB.RAPDIS. PO SCH ×3 (06:00→17:55)
[2018-05-26] MEDS: amLODIPine BESYLATE 5 MG TABLET PO SCH (08:19)
[2018-05-26] MEDS: POLYETHYLENE GLYCOL 3350 17 GM PACKET. PO SCH (08:19)
[2018-05-26] MEDS: hydrALAZINE 25 MG TABLET PO SCH ×4 (08:20→21:07)
[2018-05-26] MEDS: FAMOTIDINE 20 MG TABLET. PO SCH (08:20)
[2018-05-26] MEDS: ASPIRIN ENTERIC COATED 81 MG TABLET.DR. PO SCH (08:20)
[2018-05-26] MEDS: CARVEDILOL 12.5 MG TABLET. PO SCH ×2 (08:20→17:51)
[2018-05-26] MEDS: INSULIN LISPRO 300 UNITS/3 ML INSULN.PEN. SQ SCH ×4 (08:23→17:55)
--- NOTE | 2018-05-26 11:53 | PDOC ---
PROGRESS NOTES Subjective Subjective feels better today Objective Objective Vital Signs Date Time Temp Pulse Resp B/P (MAP) Pulse Ox O2 Delivery O2 Flow Rate FiO2 05/26/18 11:01 97.6 76 24 139/62 (87) 95 Nasal Cannula 2.0 97.6 Intake and Output 05/26/18 07:00 # Voids 3 Physical Exam Abdomen: Soft Heart: Regular rate, Normal S1, Normal S2, Other (2/6 systolic murmur ) Extremities: Other (1+ bilateral LE edema ) General: Alert, Oriented X3, Cooperative, No acute distress HEENT: Atraumatic, Mucous membr. moist/pink Lungs: Other (faint crackles, diminished bases ) MUSCULOSKELETAL: Osteoarthritic changes both hands Neck: No JVD Neuro: Normal speech, Sensation intact Psych/Mental Status: Mental status NL, Mood NL Skin: No breakdown, No significant lesion Assessment Assessment FINAL IMPRESSION: 1. Code blue. The patient has developed bradycardia, unresponsive, Code blue was called, Pt was revived with 2 rounds of CPR and 1 epinephrine. 2. Hyperkalemia. 6.0 3. Acute on chronic renal failure. Her baseline creatinine 2.5, now is 3.6. 4. Diabetes. 5. Hypertension. 6. Hyperlipidemia. 7. Pulmonary edema. 8. Diabetic with gastroparesis. PLAN: PT/OT Dialysis yesterday , perm dialysis catheter placed Needs snf dialysis cardia cath monday morning. troponin elevated 1.6. echo 40 % ejf sono kidney ch renal disease. pot down to 4.2 today spoke with renal. Comment Review of Relevant I have reviewed the following items yana (where applicable) has been applied. Labs Laboratory Tests Test 05/25/18 15:33 05/25/18 19:12 05/26/18 04:30 05/26/18 07:55 Glucose (Fingerstick) 146 mg/dL (70-99) 299 mg/dL (70-99) 173 mg/dL (70-99) White Blood Count 7.1 x10^3/uL (4.0-11.0) Red Blood Count 2.66 x10^6/uL (3.50-5.40) Hemoglobin 7.3 g/dL (12.0-15.5) Hematocrit 22.3 % (36.0-47.0) Mean Corpuscular Volume 84 fL (79-100) Mean Corpuscular Hemoglobin 28 pg (25-35) Mean Corpuscular Hemoglobin Concent 33 g/dL (31-37) Red Cell Distribution Width 13.9 % (11.5-14.5) Platelet Count 192 x10^3/uL (140-400) Neutrophils (%) (Auto) 61 % (31-73) Lymphocytes (%) (Auto) 24 % (24-48) Monocytes (%) (Auto) 10 % (0-9) Eosinophils (%) (Auto) 4 % (0-3) Basophils (%) (Auto) 1 % (0-3) Neutrophils # (Auto) 4.3 x10^3uL (1.8-7.7) Lymphocytes # (Auto) 1.7 x10^3/uL (1.0-4.8) Monocytes # (Auto) 0.7 x10^3/uL (0.0-1.1) Eosinophils # (Auto) 0.3 x10^3/uL (0.0-0.7) Basophils # (Auto) 0.1 x10^3/uL (0.0-0.2) Sodium Level 141 mmol/L (136-145) Potassium Level 3.9 mmol/L (3.5-5.1) Chloride Level 105 mmol/L (98-107) Carbon Dioxide Level 31 mmol/L (21-32) Anion Gap 5 (6-14) Blood Urea Nitrogen 23 mg/dL (7-20) Creatinine 2.7 mg/dL (0.6-1.0) Estimated GFR (Cockcroft-Gault) 18.0 Glucose Level 200 mg/dL (70-99) Calcium Level 7.5 mg/dL (8.5-10.1) Test 05/26/18 11:27 Glucose (Fingerstick) 244 mg/dL (70-99) Medications Current Medications Non-Formulary Medication (Dulaglutide (Trulicity)) 7.5 mg Tu SQ ; Start at 21:00 Vitals/I & O Vital Sign - Last 24 Hours 05/25/18 05/25/18 05/25/18 05/25/18 16:00 16:11 16:11 17:00 Pulse 85 86 86 86 Resp 15 11 B/P (MAP) 200/71 (114) 200/71 200/71 174/65 (101) Pulse Ox 97 96 O2 Delivery Nasal Cannula Room Air O2 Flow Rate 2.0 2.0 05/25/18 05/25/18 05/25/18 05/25/18 18:15 19:30 19:38 21:39 Temp 98.1 98.1 Pulse 87 87 87 Resp 18 18 B/P (MAP) 171/59 (96) 177/76 (109) 177/76 Pulse Ox 95 O2 Delivery Room Air Nasal Cannula O2 Flow Rate 2.0 2.0 05/25/18 05/26/18 05/26/18 05/26/18 23:00 03:00 04:04 07:00 Temp 98.0 97.8 97.9 98.0 97.8 97.9 Pulse 77 71 71 79 Resp 18 18 24 B/P (MAP) 144/91 (108) 179/74 (109) 179/74 166/74 (104) Pulse Ox 94 99 97 O2 Delivery Nasal Cannula Nasal Cannula Nasal Cannula O2 Flow Rate 2.0 2.0 2.0 05/26/18 05/26/18 05/26/18 05/26/18 07:59 08:19 08:20 08:20 Pulse 71 78 77 B/P (MAP) 166/74 166/74 166/74 O2 Delivery Nasal Cannula O2 Flow Rate 2.0 05/26/18 11:01 Temp 97.6 97.6 Pulse 76 Resp 24 B/P (MAP) 139/62 (87) Pulse Ox 95 O2 Delivery Nasal Cannula O2 Flow Rate 2.0 JL MARTINEZ MD May 26, 2018 11:53
--- NOTE | 2018-05-26 17:56 | NUR ---
Patient is not eating at this time. States she just wants to sleep. Will hold humalog right now.
[2018-05-26] MEDS: HYDROcodone/APAP 5/325MG 1 TAB TABLET PO SCH (21:07)
[2018-05-26] MEDS: ATORVASTATIN CALCIUM 10 MG TABLET. PO SCH (21:07)
[2018-05-26] MEDS: INSULIN GLARGINE 300 UNITS/3 ML INSULN.PEN. SQ SCH (21:08)
[2018-05-27 03:55] VITALS: BP 174/73
[2018-05-27] MEDS: ONDANSETRON ODT 4 MG TAB.RAPDIS. PO SCH ×5 (06:05→23:03)
[2018-05-27 07:51] VITALS: BP 185/78
[2018-05-27] MEDS: INSULIN LISPRO 300 UNITS/3 ML INSULN.PEN. SQ SCH ×6 (08:00→18:02)
[2018-05-27] MEDS: hydrALAZINE 25 MG TABLET PO SCH ×4 (08:29→21:03)
[2018-05-27] MEDS: ASPIRIN ENTERIC COATED 81 MG TABLET.DR. PO SCH (08:29)
[2018-05-27] MEDS: CARVEDILOL 12.5 MG TABLET. PO SCH ×2 (08:30→18:00)
[2018-05-27] MEDS: amLODIPine BESYLATE 5 MG TABLET PO SCH (08:30)
[2018-05-27] MEDS: FAMOTIDINE 20 MG TABLET. PO SCH (08:31)
[2018-05-27] MEDS: POLYETHYLENE GLYCOL 3350 17 GM PACKET. PO SCH (08:31)
[2018-05-27 10:36] VITALS: BP 150/65
--- NOTE | 2018-05-27 12:59 | PDOC ---
SUBJECTIVE ROS No new concerns or complaints OBJECTIVE Vital Signs Vital Signs Date Time Temp Pulse Resp B/P (MAP) Pulse Ox O2 Delivery O2 Flow Rate FiO2 05/27/18 10:36 98.0 75 18 150/65 (93) 97 Nasal Cannula 2.0 98.0 I & 0 Intake and Output 05/27/18 07:00 Intake Total 250 ml Balance 250 ml Intake Oral 250 ml # Voids 2 PHYSICAL EXAM Physical Exam GEN: Awake, NAD HEEN: OM moist NECK: Supple CVS: RRR RESP: CTA, No Acc. Muscle Use GI: BS + ve, Non Tender, : No CVA tenderness, No Suprapubic Tenderness, No Frye Neuro- AXO x3 Skin No rash DIAGNOSIS/ASSESSMENT Assessment & Plan BERKLEY on CKD - likely ESRD now S/P Arrest following EGD as OP 05/23 Initiated on HD , on MWF schedule Tunnelled dialysis cath on Monday Hyperkalemia-resolved cardiac Arrest following EGD Bradycardia Cardiac cath likely on Monday CK D stage IV - as per last admission Confirmed by Dr. Reyes (eGFr 27 mL/m ) Acute on chronic possible systolic HF; CXR with pul edema Accelerated hypertension Chest pain Proteinuria: Nephrotic 10 gm in Feb 2018 At Home Low dose Lisinopril Anemia: Transfuse as needed. Discussed A/p with RN COMMENT/RELEVANT DATA Meds Current Medications Medications (Trade) Dose Ordered Sig/Jenna Start Time Stop Time Status Last Admin Dose Admin Acetaminophen/ Hydrocodone Bitart (Lortab 5/325) 1 tab HS 05/23/18 21:00 05/26/18 21:07 1 TAB Amlodipine Besylate (Norvasc) 5 mg DAILY 05/23/18 17:00 05/27/18 08:30 5 MG Aspirin (Children'S Aspirin) 81 mg DAILY 05/24/18 09:00 05/25/18 18:04 DC Aspirin (Ecotrin) 81 mg DAILYWBKFT 05/23/18 17:00 05/27/18 08:29 81 MG Atorvastatin Calcium (Lipitor) 10 mg HS 05/23/18 21:00 05/26/18 21:07 10 MG Carvedilol (Coreg) 12.5 mg BIDWMEALS 05/23/18 18:00 05/27/18 08:30 12.5 MG Dextrose (Dextrose 50%-Water Syringe) 12.5 gm PRN Q15MIN PRN 3/6/19 10:15 Epinephrine HCl (EPINEPHrine SYRINGE) 3 mg STK-MED ONCE 05/23/18 11:00 05/25/18 13:08 DC Famotidine (Pepcid) 20 mg DAILY 05/24/18 10:00 05/27/18 08:31 20 MG Fentanyl Citrate (Fentanyl 2ml Vial) 50 mcg PRN Q5MIN PRN 05/23/18 08:45 05/24/18 08:44 DC Hydralazine HCl (Apresoline Inj) 10 mg PRN Q4HRS PRN 05/23/18 11:15 05/26/18 15:22 10 MG Hydralazine HCl (Apresoline) 25 mg QID 05/23/18 18:00 05/27/18 08:29 25 MG Info (PHARMACY MONITORING -- do not chart) 1 each PRN DAILY PRN 05/25/18 11:15 05/25/18 11:21 DC Insulin Glargine (Lantus) 50 units QHS 05/26/18 21:00 05/26/18 21:08 50 UNITS Insulin Human Lispro (HumaLOG) 30 units TIDWMEALS 05/26/18 17:00 05/27/18 08:36 30 UNITS Lidocaine HCl (Xylocaine-Mpf 1% 2ml Vial) 2 ml 1X PRN PRN 05/23/18 08:45 05/24/18 08:44 DC Lidocaine/Sodium Bicarbonate (Buffered Lidocaine 1%) 3 ml 1X ONCE 05/23/18 14:00 05/23/18 14:04 DC 05/23/18 14:29 3 ML Midazolam HCl (Versed) 2 mg PRN 1X PRN 05/23/18 08:45 05/24/18 08:44 DC Non-Formulary Medication (Dulaglutide (Trulicity)) 7.5 mg Tu 05/29/18 21:00 Ondansetron HCl (Zofran Odt) 4 mg Q6HRS 05/23/18 18:00 05/27/18 06:05 4 MG Polyethylene Glycol (miraLAX PACKET) 17 gm DAILY 05/24/18 09:00 05/27/18 08:31 17 GM Propofol 20 ml @ As Directed STK-MED ONCE 05/23/18 09:15 05/23/18 09:16 DC Ringer's Solution 1,000 ml @ 125 mls/hr Q8H 05/23/18 08:37 05/23/18 10:21 DC Sodium Polystyrene Sulfonate (Kayexalate) 30 gm 1X ONCE 05/23/18 11:00 05/23/18 11:01 DC 05/23/18 11:30 30 GM Sodium Chloride 1,000 ml @ 400 mls/hr Q2H30M PRN 05/25/18 11:14 05/25/18 23:13 DC Sodium Chloride (Normal Saline Flush) 10 ml 1X PRN PRN 05/25/18 11:15 05/26/18 11:14 DC Lab Laboratory Tests Test 05/26/18 17:16 05/26/18 20:31 05/27/18 07:56 05/27/18 11:52 Glucose (Fingerstick) 233 mg/dL (70-99) 199 mg/dL (70-99) 146 mg/dL (70-99) 120 mg/dL (70-99) Results All relevant outside records, renal labs, imaging studies, telemetry/EKG's were reviewed. PATRICIA CORONADO MD May 27, 2018 12:59
--- NOTE | 2018-05-27 13:02 | PDOC ---
PROGRESS NOTES Subjective Subjective feels ok Objective Objective Vital Signs Date Time Temp Pulse Resp B/P (MAP) Pulse Ox O2 Delivery O2 Flow Rate FiO2 05/27/18 10:36 98.0 75 18 150/65 (93) 97 Nasal Cannula 2.0 98.0 Intake and Output 05/27/18 06:59 Intake Total 250 ml Balance 250 ml Intake Oral 250 ml # Voids 2 Physical Exam Abdomen: Soft Heart: Regular rate, Normal S1, Normal S2, Other (2/6 systolic murmur ) Extremities: Other (1+ bilateral LE edema ) General: Alert, Oriented X3, Cooperative, No acute distress HEENT: Atraumatic, Mucous membr. moist/pink Lungs: Other (faint crackles, diminished bases ) MUSCULOSKELETAL: Osteoarthritic changes both hands Neck: No JVD Neuro: Normal speech, Sensation intact Psych/Mental Status: Mental status NL, Mood NL Skin: No breakdown, No significant lesion Assessment Assessment FINAL IMPRESSION: 1. Code blue. The patient has developed bradycardia, unresponsive, Code blue was called, Pt was revived with 2 rounds of CPR and 1 epinephrine. 2. Hyperkalemia. 6.0 3. Acute on chronic renal failure. Her baseline creatinine 2.5, now is 3.6. 4. Diabetes. 5. Hypertension. 6. Hyperlipidemia. 7. Pulmonary edema. 8. Diabetic with gastroparesis. PLAN: cxr today. cardiac cath tomorrow,followed by dialysis perm dialysis catheter placed Needs exterminator helper dialysis spoke with cardiology troponin elevated 1.6. echo 40 % ejf sono kidney ch renal disease. pot down to 4.2 today spoke with renal. Comment Review of Relevant I have reviewed the following items yana (where applicable) has been applied. Labs Laboratory Tests Test 05/26/18 17:16 05/26/18 20:31 05/27/18 07:56 05/27/18 11:52 Glucose (Fingerstick) 233 mg/dL (70-99) 199 mg/dL (70-99) 146 mg/dL (70-99) 120 mg/dL (70-99) Medications Current Medications Insulin Glargine (Lantus) 50 units QHS SQ Last administered on 05/26/18at 21:08; Start 05/26/18 at 21:00 Insulin Human Lispro (HumaLOG) 30 units TIDWMEALS SQ Last administered on at 08:36; Start 05/26/18 at 17:00 Non-Formulary Medication (Dulaglutide (Trulicity)) 7.5 mg Tu SQ ; Start at 21:00 Vitals/I & O Vital Sign - Last 24 Hours 05/26/18 05/26/18 05/26/18 05/26/18 13:10 15:00 15:22 16:25 Temp 97.9 97.9 Pulse 76 84 82 Resp 20 B/P (MAP) 139/62 166/70 (102) 182/77 153/70 (97) Pulse Ox 94 O2 Delivery Nasal Cannula O2 Flow Rate 2.0 05/26/18 05/26/18 05/26/18 05/26/18 17:51 17:51 18:48 19:40 Temp 99.2 99.2 Pulse 82 82 84 Resp 20 B/P (MAP) 153/70 153/70 176/70 (105) Pulse Ox 94 O2 Delivery Nasal Cannula Nasal Cannula O2 Flow Rate 2.0 2.0 05/26/18 05/26/18 05/26/18 05/26/18 21:07 21:07 22:12 22:51 Temp 98.2 98.2 Pulse 84 76 Resp 18 16 16 B/P (MAP) 176/70 140/64 (89) Pulse Ox 97 O2 Delivery Nasal Cannula Nasal Cannula Nasal Cannula O2 Flow Rate 2.0 2.0 2.0 05/27/18 05/27/18 05/27/18 05/27/18 03:55 07:51 08:02 08:29 Temp 98.4 98.2 98.4 98.2 Pulse 74 79 79 Resp 20 18 B/P (MAP) 174/73 (106) 185/78 (113) 185/78 Pulse Ox 95 98 O2 Delivery Nasal Cannula Nasal Cannula Nasal Cannula O2 Flow Rate 2.0 2.0 2.0 05/27/18 05/27/18 05/27/18 08:30 08:30 10:36 Temp 98.0 98.0 Pulse 79 79 75 Resp 18 B/P (MAP) 185/78 185/78 150/65 (93) Pulse Ox 97 O2 Delivery Nasal Cannula O2 Flow Rate 2.0 Intake and Output 05/26/18 05/26/18 05/27/18 14:59 22:59 06:59 Intake Total 250 ml Balance 250 ml JL MARTINEZ MD May 27, 2018 13:02
[2018-05-27 14:35] VITALS: BP 149/64
[2018-05-27 19:04] VITALS: BP 188/71
[2018-05-27] MEDS: ATORVASTATIN CALCIUM 10 MG TABLET. PO SCH (21:03)
[2018-05-27] MEDS: HYDROcodone/APAP 5/325MG 1 TAB TABLET PO SCH (21:08)
[2018-05-27] MEDS: INSULIN GLARGINE 300 UNITS/3 ML INSULN.PEN. SQ SCH (21:10)
[2018-05-27 22:50] VITALS: BP 141/67
[2018-05-28] VITALS (17 sets, daily range): BP systolic 127–210; BP diastolic 60–137
[2018-05-28] MEDS: hydrALAZINE 20 MG/ML VIAL. IVP PRN ×2 (03:36→11:58)
[2018-05-28] MEDS: ONDANSETRON ODT 4 MG TAB.RAPDIS. PO SCH ×3 (05:42→17:03)
[2018-05-28 06:06] LABS: BASO # 0.1 x10^3/uL (0.0-0.2); BASO % 1 % (0-3); EOS # 0.2 x10^3/uL (0.0-0.7); EOS % 4 % (0-3); HEMATOCRIT 22.5 % (36.0-47.0); HEMOGLOBIN 7.3 g/dL (12.0-15.5); LYMPH # 1.6 x10^3/uL (1.0-4.8); LYMPH % 27 % (24-48); MEAN CORPUSCULAR HEMOGLOBIN 27 pg (25-35); MEAN CORPUSCULAR HGB CONC 32 g/dL (31-37); MEAN CORPUSCULAR VOLUME 84 fL (79-100); MONO # 0.6 x10^3/uL (0.0-1.1); MONO % 10 % (0-9); NEUT # 3.4 x10^3uL (1.8-7.7); NEUT % 58 % (31-73); PLATELET COUNT 219 x10^3/uL (140-400); RED BLOOD COUNT 2.66 x10^6/uL (3.50-5.40); RED CELL DISTRIBUTION WIDTH 13.7 % (11.5-14.5); WHITE BLOOD COUNT 5.8 x10^3/uL (4.0-11.0)
[2018-05-28 06:45] LABS: ALBUMIN 1.9 g/dL (3.4-5.0); CALCIUM 7.9 mg/dL (8.5-10.1); GFR 11.4; PHOSPHORUS 4.1 mg/dL (2.6-4.7); POTASSIUM 4.2 mmol/L (3.5-5.1)
--- NOTE | 2018-05-28 07:52 | RAD ---
Portable chest, 05/27/2018: HISTORY: Shortness of breath Comparison is made to a study from 05/23/2018. A right jugular catheter remains in place extending to the level the atriocaval junction. The heart is at the upper limits of normal in size. Right perihilar and left basilar infiltrates have partially cleared. No new pulmonary abnormality is seen. Residual left-sided pleural fluid cannot be excluded. IMPRESSION: 1. Improving right perihilar and left basilar infiltrates. 2. No new abnormality is detected. Electronically signed by: Jake Armstrong MD (05/28/2018 7:50 AM) [facility]
[2018-05-28] MEDS: INSULIN LISPRO 300 UNITS/3 ML INSULN.PEN. SQ SCH ×6 (08:00→16:43)
[2018-05-28] MEDS ORDERED: IODIXANOL 320 MG/ML 100 ML VIAL. ONE (09:09)
[2018-05-28] MEDS ORDERED: LIDOCAINE 1% PF 2 ML VIAL. ONE (09:09)
[2018-05-28] MEDS ORDERED: LIDOCAINE 1%/EPI 1:100,000 20 ML VIAL. ONE (09:18)
[2018-05-28] MEDS ORDERED: HEPARIN for IV BOLUS 10,000 UNIT/10 ML VIAL. ONE ×2 (09:19→10:23)
[2018-05-28] MEDS ORDERED: MIDAZOLAM HCL/PF 5 MG/5 ML VIAL. ONE (09:33)
[2018-05-28] MEDS ORDERED: fentaNYL PF VIAL 100 MCG/2 ML VIAL ONE ×2 (09:33→10:23)
[2018-05-28] MEDS ORDERED: MIDAZOLAM HCL/PF 5 MG/5 ML VIAL. IV ONE (09:45)
[2018-05-28] MEDS ORDERED: fentaNYL PF VIAL 100 MCG/2 ML VIAL IV ONE (09:45)
[2018-05-28] MEDS ORDERED: LIDOCAINE 1%/EPI 1:100,000 20 ML VIAL. IJ ONE (09:45)
[2018-05-28] MEDS ORDERED: IV NORMAL SALINE 1000ML BAG 1,000 ML IV PRN ×2 (10:08)
--- NOTE | 2018-05-28 10:13 | PDOC ---
PROGRESS NOTES Subjective Subjective feels better today Objective Objective Vital Signs Date Time Temp Pulse Resp B/P (MAP) Pulse Ox O2 Delivery O2 Flow Rate FiO2 05/28/18 10:08 12 96 Nasal Cannula 2.0 05/28/18 07:00 97.8 77 166/74 (104) 97.8 Intake and Output 05/28/18 07:00 Intake Total 950 ml Balance 950 ml Intake Oral 950 ml # Voids 1 Physical Exam Abdomen: Soft Heart: Regular rate, Normal S1, Normal S2, Other (2/6 systolic murmur ) Extremities: Other (1+ bilateral LE edema ) General: Alert, Oriented X3, Cooperative, No acute distress HEENT: Atraumatic, Mucous membr. moist/pink Lungs: Other (faint crackles, diminished bases ) MUSCULOSKELETAL: Osteoarthritic changes both hands Neck: No JVD Neuro: Normal speech, Sensation intact Psych/Mental Status: Mental status NL, Mood NL Skin: No breakdown, No significant lesion Assessment Assessment FINAL IMPRESSION: 1. Code blue. The patient has developed bradycardia, unresponsive, Code blue was called, Pt was revived with 2 rounds of CPR and 1 epinephrine. 2. Hyperkalemia. 6.0 3. Acute on chronic renal failure. Her baseline creatinine 2.5, now is 3.6. 4. Diabetes. 5. Hypertension. 6. Hyperlipidemia. 7. Pulmonary edema. 8. Diabetic with gastroparesis. PLAN: cardiac cath today cxr improving dialysis today perm dialysis catheter placed today Needs longterm dialysis spoke with cardiology troponin elevated 1.6. echo 40 % ejf sono kidney ch renal disease. pot down to 4.2 today spoke with renal. Comment Review of Relevant I have reviewed the following items yana (where applicable) has been applied. Labs Laboratory Tests Test 05/27/18 11:52 05/27/18 17:00 05/27/18 20:46 05/28/18 03:29 Glucose (Fingerstick) 120 mg/dL (70-99) 89 mg/dL (70-99) 93 mg/dL (70-99) 101 mg/dL (70-99) Test 05/28/18 05:45 05/28/18 07:27 White Blood Count 5.8 x10^3/uL (4.0-11.0) Red Blood Count 2.66 x10^6/uL (3.50-5.40) Hemoglobin 7.3 g/dL (12.0-15.5) Hematocrit 22.5 % (36.0-47.0) Mean Corpuscular Volume 84 fL (79-100) Mean Corpuscular Hemoglobin 27 pg (25-35) Mean Corpuscular Hemoglobin Concent 32 g/dL (31-37) Red Cell Distribution Width 13.7 % (11.5-14.5) Platelet Count 219 x10^3/uL (140-400) Neutrophils (%) (Auto) 58 % (31-73) Lymphocytes (%) (Auto) 27 % (24-48) Monocytes (%) (Auto) 10 % (0-9) Eosinophils (%) (Auto) 4 % (0-3) Basophils (%) (Auto) 1 % (0-3) Neutrophils # (Auto) 3.4 x10^3uL (1.8-7.7) Lymphocytes # (Auto) 1.6 x10^3/uL (1.0-4.8) Monocytes # (Auto) 0.6 x10^3/uL (0.0-1.1) Eosinophils # (Auto) 0.2 x10^3/uL (0.0-0.7) Basophils # (Auto) 0.1 x10^3/uL (0.0-0.2) Sodium Level 144 mmol/L (136-145) Potassium Level 4.2 mmol/L (3.5-5.1) Chloride Level 106 mmol/L (98-107) Carbon Dioxide Level 31 mmol/L (21-32) Anion Gap 7 (6-14) Blood Urea Nitrogen 39 mg/dL (7-20) Creatinine 4.0 mg/dL (0.6-1.0) Estimated GFR (Cockcroft-Gault) 11.4 Glucose Level 95 mg/dL (70-99) Calcium Level 7.9 mg/dL (8.5-10.1) Phosphorus Level 4.1 mg/dL (2.6-4.7) Albumin 1.9 g/dL (3.4-5.0) Glucose (Fingerstick) 90 mg/dL (70-99) Medications Current Medications Cefazolin Sodium/ Dextrose 50 ml @ 100 mls/hr 1X ONCE IV ; Start 05/28/18 at 10:15; Stop 05/28/18 at 10:44; Status UNV Cefazolin Sodium/ Dextrose 50 ml @ As Directed STK-MED ONCE IV ; Start 05/28/18 at 09:38; Stop 05/28/18 at 09:39; Status DC Fentanyl Citrate (Fentanyl 2ml Vial) 100 mcg 1X ONCE IV Last administered on at 10:08; Start 05/28/18 at 09:45; Stop 05/28/18 at 09:58; Status DC Fentanyl Citrate (Fentanyl 2ml Vial) 100 mcg STK-MED ONCE .ROUTE ; Start at 09:33; Stop 05/28/18 at 09:34; Status DC Heparin Sodium (Porcine) (Heparin Sodium) 3,800 unit 1X ONCE INT CAT Last administered on 05/28/18at 10:07; Start 05/28/18 at 09:45; Stop 05/28/18 at 09:58 ; Status DC Heparin Sodium (Porcine) (Heparin Sodium) 10,000 unit STK-MED ONCE .ROUTE ; Start 05/28/18 at 09:19; Stop 05/28/18 at 09:20; Status DC Heparin Sodium/ Sodium Chloride 1,000 ml @ As Directed STK-MED ONCE .ROUTE ; Start 05/28/18 at 09:09; Stop 05/28/18 at 09:10; Status DC Iodixanol (Visipaque 320) 100 ml STK-MED ONCE .ROUTE ; Start 05/28/18 at 09:09; Stop 05/28/18 at 09:10; Status DC Lidocaine HCl (Xylocaine-Mpf 1% 2ml Vial) 2 ml STK-MED ONCE .ROUTE ; Start 05/28 at 09:09; Stop 05/28/18 at 09:10; Status DC Lidocaine/ Epinephrine (LIDOCAINE 1%-EPI 1:100,000 Multi-Dose) 20 ml 1X ONCE IJ Last administered on 05/28/18at 10:07; Start 05/28/18 at 09:45; Stop at 09:58; Status DC Lidocaine/ Epinephrine (LIDOCAINE 1%-EPI 1:100,000 Multi-Dose) 20 ml STK-MED ONCE .ROUTE ; Start 05/28/18 at 09:18; Stop 05/28/18 at 09:19; Status DC Midazolam HCl (Versed) 5 mg 1X ONCE IV Last administered on 05/28/18at 10:09; Start 05/28/18 at 09:45; Stop 05/28/18 at 09:58; Status DC Midazolam HCl (Versed) 5 mg STK-MED ONCE .ROUTE ; Start 05/28/18 at 09:33; Stop 05/28/18 at 09:34; Status DC Non-Formulary Medication (Dulaglutide (Trulicity)) 7.5 mg Tu SQ ; Start at 21:00 Vitals/I & O Vital Sign - Last 24 Hours 05/27/18 05/27/18 05/27/18 05/27/18 10:36 13:30 14:35 18:00 Temp 98.0 98.3 98.0 98.3 Pulse 75 75 72 72 Resp 18 18 B/P (MAP) 150/65 (93) 150/65 149/64 (92) 149/64 Pulse Ox 97 98 O2 Delivery Nasal Cannula Nasal Cannula O2 Flow Rate 2.0 2.0 05/27/18 05/27/18 05/27/18 05/27/18 18:00 19:04 19:45 21:03 Temp 98.3 98.3 Pulse 72 81 81 Resp 18 B/P (MAP) 149/64 188/71 (110) 188/71 Pulse Ox 97 O2 Delivery Room Air Nasal Cannula O2 Flow Rate 2.0 05/27/18 05/27/18 05/28/18 05/28/18 21:08 22:50 03:20 03:36 Temp 98.0 97.7 98.0 97.7 Pulse 78 68 68 Resp 18 20 B/P (MAP) 141/67 (91) 176/78 (110) 176/78 Pulse Ox 96 98 O2 Delivery Nasal Cannula Nasal Cannula Nasal Cannula O2 Flow Rate 2.0 2.0 05/28/18 05/28/18 07:00 10:08 Temp 97.8 97.8 Pulse 77 Resp 20 12 B/P (MAP) 166/74 (104) Pulse Ox 98 96 O2 Delivery Nasal Cannula Nasal Cannula O2 Flow Rate 2.0 2.0 Intake and Output 05/27/18 05/27/18 05/28/18 15:00 23:00 07:00 Intake Total 850 ml 100 ml Balance 850 ml 100 ml JL MARTINEZ MD May 28, 2018 10:13
[2018-05-28] MEDS ORDERED: ACETAMINOPHEN 500 MG TABLET PO PRN (10:15)
[2018-05-28] MEDS ORDERED: diphenhydrAMINE 50 MG/ML VIAL IV PRN ×2 (10:15)
[2018-05-28] MEDS ORDERED: ALBUMIN HUMAN 25% 200 ML IV PRN (10:15)
[2018-05-28] MEDS ORDERED: 0.9 % SODIUM CHLORIDE 10 ML DISP.SYRIN. IV PRN ×2 (10:15)
[2018-05-28] MEDS ORDERED: DIALYSIS PATIENT. MC PRN (10:15)
[2018-05-28] MEDS ORDERED: VERAPAMIL 5 MG/2 ML VIAL. ONE (10:23)
[2018-05-28] MEDS ORDERED: MIDAZOLAM HCL/PF 2 MG/2 ML VIAL. ONE (10:23)
[2018-05-28] MEDS ORDERED: NITROGLYCERIN 200 MCG/2 ML SYRINGE FOR CATH/VASC LAB. ONE (10:24)
[2018-05-28] MEDS ORDERED: LIDOCAINE 1% PF 2 ML VIAL. INJ ONE (10:45)
[2018-05-28] MEDS ORDERED: VERAPAMIL 5 MG/2 ML VIAL. IART ONE (10:45)
[2018-05-28] MEDS ORDERED: IODIXANOL 320 MG/ML 100 ML VIAL. IART ONE (10:45)
[2018-05-28] MEDS ORDERED: HEPARIN for IV BOLUS 10,000 UNIT/10 ML VIAL. IART ONE (10:45)
[2018-05-28] MEDS ORDERED: NITROGLYCERIN 200 MCG/2 ML SYRINGE FOR CATH/VASC LAB. IART ONE (10:45)
[2018-05-28] MEDS ORDERED: CONTRAST GIVEN. MC PRN (11:00)
[2018-05-28] MEDS ORDERED: NITROGLYCERIN SUBLINGUAL 0.4 MG BOTTLE OF 25. SL PRN (11:00)
--- NOTE | 2018-05-28 11:00 | PDOC ---
MODERATE SEDATION ASSESSMENT RISKS/ALTERNATIVES Risks/Alternatives Risks and alternatives of this type of sedation and procedure discussed with: RISK/ALTERNATIVES: Patient H & P ON CHART H & P H & P on chart and reviewed for co-morbid conditions and appropriate labs. H&P ON CHART: Yes STATUS PREG STATUS ASSESSED: N/A MEDS/ALLERGIES REVIEWED Meds/Allergies Reviewed Medications and Allergies including time and route of recently administered narcotics and sedatives. MEDS/ALLERGIES REVIEWED: Yes ASA RATING ASA RATING: III AIRWAY ASSESSMENT Airway Assessment Airway patency, oral function limitations, presence of caps, crowns, dentures, partials, and ability to extend neck assessed. AIRWAY ASSESSMENT: Yes MALLAMPATI SCORE MALLAMPATI SCORE: II PRE-SEDATION ASSESSMENT PRE-SEDATION ASSESSMENT: Yes LISS DELUNA MD May 28, 2018 11:00
--- NOTE | 2018-05-28 11:19 | CARD ---
MR#: [id number] Date of Study: 05/28/2018 Ordering Physician: LISS TEJADA, Referring Physician: JL MARTINEZ, Tech: APPROVED REPORT Procedure(s) performed: Left heart catheterization, selective coronary angiography and left ventricul ography via right transradial approach. INDICATION The indication(s) include : unstable angina . PROCEDURE NARRATIVE After explaining the risks, benefits and alternative options, informed consent was obtained from bautista ent. Patient was brought to the cardiac Farm Management Professor and right wrist was prepped and draped in the usual fashion after confirming a positive modified Myron's test. Arterial access was obtained in the righ t radial artery and a 6 [place] sheath was inserted. 6 [place] Migel catheter was used to perform marcel ective angiography of the left and right coronary arteries. 6 [place] pigtail catheter was used to pe rform left ventriculography. Patient tolerated the procedure well. Hemostasis was achieved using TR band. There were no immediate complications. The following findings were noted. FINDINGS 1. Hemodynamics: Left ventricular end-diastolic pressure of 20 mmHg. No pullback gradient across th e aortic valve. 2. Left ventriculography: Normal left ventricle systolic function with ejection fraction estimated at 60%. No significant mitral regurgitation seen. 3. Coronary angiography: a. The left main coronary artery arose from the left sinus of Valsalva, gave rise to the left anteri or descending and left circumflex arteries and did not show any significant stenosis. b. The left anterior descending artery did not show any significant stenosis. c. The left circumflex artery was a large and dominant vessel that did not show any significant sten osis. d. The right coronary artery was a small and non-dominant vessel arising from the right sinus of Melanie juan that did not show any significant stenosis. Conclusion 1. No significant coronary artery disease. 2. Normal left ventricular systolic function with ejection fraction estimated at 60%. Signed by : Liss Tejada, Electronically Approved : 05/28/2018 11:19:10
--- NOTE | 2018-05-28 11:25 | PDOC ---
Objective: Vital Signs: Vital Signs Date Time Temp Pulse Resp B/P (MAP) Pulse Ox O2 Delivery O2 Flow Rate FiO2 05/28/18 10:56 79 21 89 Nasal Cannula 4.0 05/28/18 07:00 97.8 166/74 (104) 97.8 Labs: Laboratory Tests Test 05/27/18 11:52 05/27/18 17:00 05/27/18 20:46 05/28/18 03:29 Glucose (Fingerstick) 120 mg/dL 89 mg/dL 93 mg/dL 101 mg/dL Test 05/28/18 05:45 05/28/18 07:27 White Blood Count 5.8 x10^3/uL Red Blood Count 2.66 x10^6/uL Hemoglobin 7.3 g/dL Hematocrit 22.5 % Mean Corpuscular Volume 84 fL Mean Corpuscular Hemoglobin 27 pg Mean Corpuscular Hemoglobin Concent 32 g/dL Red Cell Distribution Width 13.7 % Platelet Count 219 x10^3/uL Neutrophils (%) (Auto) 58 % Lymphocytes (%) (Auto) 27 % Monocytes (%) (Auto) 10 % Eosinophils (%) (Auto) 4 % Basophils (%) (Auto) 1 % Neutrophils # (Auto) 3.4 x10^3uL Lymphocytes # (Auto) 1.6 x10^3/uL Monocytes # (Auto) 0.6 x10^3/uL Eosinophils # (Auto) 0.2 x10^3/uL Basophils # (Auto) 0.1 x10^3/uL Sodium Level 144 mmol/L Potassium Level 4.2 mmol/L Chloride Level 106 mmol/L Carbon Dioxide Level 31 mmol/L Anion Gap 7 Blood Urea Nitrogen 39 mg/dL Creatinine 4.0 mg/dL Estimated GFR (Cockcroft-Gault) 11.4 Glucose Level 95 mg/dL Calcium Level 7.9 mg/dL Phosphorus Level 4.1 mg/dL Albumin 1.9 g/dL Glucose (Fingerstick) 90 mg/dL Imaging: Cardiac Cath pending PE: out of room A/P: S/p resp/cardiac arrest ESRD on HD -- Out of room for cardiac cath, will follow. AMIAN GANT May 28, 2018 11:25
--- NOTE | 2018-05-28 11:43 | PDOC ---
BRIEF OPERATIVE NOTE Pre-Op Diagnosis CRF Post-Op Diagnosis same Procedure Performed Temp to Tunnelled HD Catheter Surgeon Trinh Anesthesia Type: Conscious Sedation Findings 23cm right IJ Palindrome with excellent manual flows Complications no immediate CALISTA MARTIN MD May 28, 2018 11:43
--- NOTE | 2018-05-28 11:43 | PDOC ---
MODERATE SEDATION ASSESSMENT RISKS/ALTERNATIVES Risks/Alternatives Risks and alternatives of this type of sedation and procedure discussed with: RISK/ALTERNATIVES: Patient H & P ON CHART H & P H & P on chart and reviewed for co-morbid conditions and appropriate labs. H&P ON CHART: Yes STATUS PREG STATUS ASSESSED: Yes MEDS/ALLERGIES REVIEWED Meds/Allergies Reviewed Medications and Allergies including time and route of recently administered narcotics and sedatives. MEDS/ALLERGIES REVIEWED: Yes ASA RATING ASA RATING: II AIRWAY ASSESSMENT Airway Assessment Airway patency, oral function limitations, presence of caps, crowns, dentures, partials, and ability to extend neck assessed. AIRWAY ASSESSMENT: Yes MALLAMPATI SCORE MALLAMPATI SCORE: II PRE-SEDATION ASSESSMENT PRE-SEDATION ASSESSMENT: Yes CALISTA MARTIN MD May 28, 2018 11:43
[2018-05-28] MEDS: FAMOTIDINE 20 MG TABLET. PO SCH (11:44)
[2018-05-28] MEDS: amLODIPine BESYLATE 5 MG TABLET PO SCH (11:45)
[2018-05-28] MEDS: CARVEDILOL 12.5 MG TABLET. PO SCH ×2 (11:45→17:03)
[2018-05-28] MEDS: ASPIRIN ENTERIC COATED 81 MG TABLET.DR. PO SCH (11:46)
[2018-05-28] MEDS: hydrALAZINE 25 MG TABLET PO SCH ×4 (11:46→22:12)
[2018-05-28] MEDS: POLYETHYLENE GLYCOL 3350 17 GM PACKET. PO SCH (12:27)
--- NOTE | 2018-05-28 12:31 | PDOC ---
Renal-Progress Notes Subjective Notes Notes NONE History of Present Illness Hx of present illness STABLE Vitals Vitals Vital Signs Date Time Temp Pulse Resp B/P (MAP) Pulse Ox O2 Delivery O2 Flow Rate FiO2 05/28/18 11:58 78 210/84 05/28/18 10:56 21 89 Nasal Cannula 4.0 05/28/18 07:00 97.8 97.8 Weight Weight [ ] I.O. Intake and Output Intake and Output 05/28/18 07:00 Intake Total 950 ml Balance 950 ml Intake Oral 950 ml # Voids 1 Labs Labs Laboratory Tests Test 05/27/18 17:00 05/27/18 20:46 05/28/18 03:29 05/28/18 05:45 Glucose (Fingerstick) 89 mg/dL (70-99) 93 mg/dL (70-99) 101 mg/dL (70-99) White Blood Count 5.8 x10^3/uL (4.0-11.0) Red Blood Count 2.66 x10^6/uL (3.50-5.40) Hemoglobin 7.3 g/dL (12.0-15.5) Hematocrit 22.5 % (36.0-47.0) Mean Corpuscular Volume 84 fL (79-100) Mean Corpuscular Hemoglobin 27 pg (25-35) Mean Corpuscular Hemoglobin Concent 32 g/dL (31-37) Red Cell Distribution Width 13.7 % (11.5-14.5) Platelet Count 219 x10^3/uL (140-400) Neutrophils (%) (Auto) 58 % (31-73) Lymphocytes (%) (Auto) 27 % (24-48) Monocytes (%) (Auto) 10 % (0-9) Eosinophils (%) (Auto) 4 % (0-3) Basophils (%) (Auto) 1 % (0-3) Neutrophils # (Auto) 3.4 x10^3uL (1.8-7.7) Lymphocytes # (Auto) 1.6 x10^3/uL (1.0-4.8) Monocytes # (Auto) 0.6 x10^3/uL (0.0-1.1) Eosinophils # (Auto) 0.2 x10^3/uL (0.0-0.7) Basophils # (Auto) 0.1 x10^3/uL (0.0-0.2) Sodium Level 144 mmol/L (136-145) Potassium Level 4.2 mmol/L (3.5-5.1) Chloride Level 106 mmol/L (98-107) Carbon Dioxide Level 31 mmol/L (21-32) Anion Gap 7 (6-14) Blood Urea Nitrogen 39 mg/dL (7-20) Creatinine 4.0 mg/dL (0.6-1.0) Estimated GFR (Cockcroft-Gault) 11.4 Glucose Level 95 mg/dL (70-99) Calcium Level 7.9 mg/dL (8.5-10.1) Phosphorus Level 4.1 mg/dL (2.6-4.7) Albumin 1.9 g/dL (3.4-5.0) Test 05/28/18 07:27 05/28/18 11:26 Glucose (Fingerstick) 90 mg/dL (70-99) 126 mg/dL (70-99) Review of Systems Constitutional: yes: weakness, alert, oriented Ears/Nose/Throat: Yes: no symptom reported Eyes: Yes: no symptom reported Pulmonary: Yes no symptom reported Cardiovascular: Yes no symptom reported Gastrointestional: Yes: constipation Genitourinary: Yes: no symptom reported Musculoskeletal: Yes: no symptom reported Skin: Yes no symptom reported Psychiatric/Neurological: Yes: no symptom reported Endocrine: Yes: no symptom reported Physical Exam General Appearance: no apparent distress Respiratory: bilateral CTA Heart: S1S2 Abdomen: soft, bowel sounds present Genitourinary: no mass Neurology: alert, oriented Musculoskeletal: Osteoarthritis Assessment Assessment IMP NEW ESRD ANEMIA DM II HTN ?CAD PLAN HEART CATH TODAY HD TODAY UF TO DW AFTER CATH WILL ALSO NEED TUNNELED HD CATH HAVE ASKED SW TO SET UP OP HD WILL FOLLOW ALANNA GAGNON MD May 28, 2018 12:31
--- NOTE | 2018-05-28 20:44 | NUR ---
RIGHT WRIST HAS +2 PULSE, ARM BOARD IN PLACE, DISCUSSED WITH PT ON ACTIVITY WITH RIGHT HAND. PT AGREED. WITH VERBALIZATION. LCRN
[2018-05-28] MEDS: HYDROcodone/APAP 5/325MG 1 TAB TABLET PO SCH (22:11)
[2018-05-28] MEDS: ATORVASTATIN CALCIUM 10 MG TABLET. PO SCH (22:11)
[2018-05-28] MEDS: INSULIN GLARGINE 300 UNITS/3 ML INSULN.PEN. SQ SCH (22:14)
[2018-05-29] MEDS: ONDANSETRON ODT 4 MG TAB.RAPDIS. PO SCH ×2 (00:10→07:13)
[2018-05-29 03:20] VITALS: BP 174/77
[2018-05-29 04:55] LABS: ALBUMIN 1.9 g/dL (3.4-5.0); CALCIUM 7.7 mg/dL (8.5-10.1); CREATININE 3.1 mg/dL (0.6-1.0); GFR 15.3; POTASSIUM 4.3 mmol/L (3.5-5.1)
[2018-05-29 07:00] VITALS: BP 183/79
[2018-05-29] MEDS: INSULIN LISPRO 300 UNITS/3 ML INSULN.PEN. SQ SCH ×6 (08:00→17:00)
[2018-05-29] MEDS: POLYETHYLENE GLYCOL 3350 17 GM PACKET. PO SCH ×3 (08:37→21:41)
[2018-05-29] MEDS: hydrALAZINE 25 MG TABLET PO SCH ×4 (08:39→21:42)
[2018-05-29] MEDS: FAMOTIDINE 20 MG TABLET. PO SCH (08:40)
[2018-05-29] MEDS: ASPIRIN ENTERIC COATED 81 MG TABLET.DR. PO SCH (08:40)
[2018-05-29] MEDS: CARVEDILOL 12.5 MG TABLET. PO SCH ×2 (08:40→18:32)
[2018-05-29] MEDS: hydrALAZINE 20 MG/ML VIAL. IVP PRN (08:42)
[2018-05-29] MEDS: amLODIPine BESYLATE 5 MG TABLET PO SCH (08:49)
--- NOTE | 2018-05-29 08:57 | RAD ---
Procedure: Conversion of a temporary to tunneled hemodialysis catheter Clinical Indication: 8-year-old requiring hemodialysis, long-term Sedation: Conscious sedation was administered for 25 minutes. The patient was monitored by a qualified independent observer throughout the time of sedation. Please refer to the medical record for exact doses of medications utilized to achieve moderate sedation. Antibiotics: Antibiotic was administered intravenously within 1 hour of the procedure start time. Fluoro Time: 1.1 minutes. Images: 1 Contrast: None Sterility: All elements of maximal sterile barrier technique including the use of a cap, mask, sterile gown, sterile gloves, large sterile sheet, appropriate hand hygiene, and 2% chlorhexidine for cutaneous antisepsis (or acceptable alternative antiseptic per current guidelines) were followed for this procedure. If ultrasound guidance was utilized, sterile ultrasound techniques were followed including use of a sterile probe cover. Consent: The procedure was explained in its entirety to the patient or the patients designated leasing representative by a member of the treatment team, including a discussion of the risks, benefits and commonly accepted alternatives to the procedure, as well as the expected consequences of no therapy whatsoever. Discussion of the risks included, but was not limited to, those that are most frequent and those that are rare but possibly severe or life-threatening, as well as the possibility of unforeseen complications. Technique and Findings: Following informed consent, the patient was prepped and draped in usual sterile fashion. 1% lidocaine was used to achieve local anesthesia over the right anterior chest wall. A small dermatotomy was made. A 23 cm palindrome catheter was then tunneled subcutaneously towards the right neck dermatotomy at the site of the existing temporary hemodialysis catheter. Under fluoroscopic guidance, an Amplatz wire was advanced into the IVC and the existing temporary hemodialysis catheter was removed. A large caliber peel-away sheath was positioned over the wire and used to deploy the tunneled hemodialysis catheter under fluoroscopic guidance such that the distal tip resided in the mid right atrium. Manual flow rates were assessed and found to be excellent. The new catheter was flushed, packed with heparin, capped, and sutured to the skin. Dermabond was used to close the right neck dermatotomy. Complications: No immediate Impression: 1. Fluoroscopic guided exchange of a temporary for tunneled hemodialysis catheter as described
[2018-05-29] MEDS ORDERED: BISACODYL 5 MG TABLET.DR. PO ONE (09:30)
--- NOTE | 2018-05-29 09:32 | PDOC ---
Subjective: Subjective: Denies nausea and pain, says doing good. Objective: Objective: Reviewed w/ RN - no n/v but getting scheduled Zofran, no BM in ~6 days, DC when outpt HD set up. Vital Signs: Vital Signs Date Time Temp Pulse Resp B/P (MAP) Pulse Ox O2 Delivery O2 Flow Rate FiO2 05/29/18 08:49 77 183/79 05/29/18 07:00 97.9 18 98 Nasal Cannula 2.0 97.9 Labs: Laboratory Tests Test 05/28/18 11:26 05/28/18 16:42 05/28/18 17:27 05/28/18 20:54 Glucose (Fingerstick) 126 mg/dL 45 mg/dL 144 mg/dL 248 mg/dL Test 05/29/18 03:45 05/29/18 07:44 Sodium Level 142 mmol/L Potassium Level 4.3 mmol/L Chloride Level 104 mmol/L Carbon Dioxide Level 32 mmol/L Anion Gap 6 Blood Urea Nitrogen 23 mg/dL Creatinine 3.1 mg/dL Estimated GFR (Cockcroft-Gault) 15.3 Glucose Level 126 mg/dL Calcium Level 7.7 mg/dL Phosphorus Level 4.0 mg/dL Albumin 1.9 g/dL Glucose (Fingerstick) 124 mg/dL Imaging: Cardiac Cath 05/28/18 Conclusion 1. No significant coronary artery disease. 2. Normal left ventricular systolic function with ejection fraction estimated at 60%. PE: GEN: NAD - breakfast tray >80% consumed LUNGS: CTAB HEART: RRR ABD: S/ND/NT NEURO/PSYCH: A & O 3 A/P: S/p resp/cardiac arrest - cath okay as above ESRD on HD, HTN Chronic nausea, h/o gastroparesis - stable, unrevealing EGD last week Constipation -- Try Dulcolax, increase Miralax, wean down Zofran. DC per primary. AMINA GANT May 29, 2018 09:32
[2018-05-29] MEDS ORDERED: ONDANSETRON ODT 4 MG TAB.RAPDIS. PO PRN (09:45)
--- NOTE | 2018-05-29 10:06 | PDOC ---
PROGRESS NOTES Subjective Subjective feels better Objective Objective Vital Signs Date Time Temp Pulse Resp B/P (MAP) Pulse Ox O2 Delivery O2 Flow Rate FiO2 05/29/18 08:49 77 183/79 05/29/18 08:00 Nasal Cannula 2.0 05/29/18 07:00 97.9 18 98 97.9 Intake and Output 05/29/18 06:59 Intake Total 540 ml Balance 540 ml Intake Oral 540 ml Physical Exam Abdomen: Soft Heart: Regular rate, Normal S1, Normal S2, Other (2/6 systolic murmur ) Extremities: Other (1+ bilateral LE edema ) General: Alert, Oriented X3, Cooperative, No acute distress HEENT: Atraumatic, Mucous membr. moist/pink Lungs: Other (faint crackles, diminished bases ) MUSCULOSKELETAL: Osteoarthritic changes both hands Neck: No JVD Neuro: Normal speech, Sensation intact Psych/Mental Status: Mental status NL, Mood NL Skin: No breakdown, No significant lesion Assessment Assessment FINAL IMPRESSION: 1. Code blue. The patient has developed bradycardia, unresponsive, Code blue was called, Pt was revived with 2 rounds of CPR and 1 epinephrine. 2. Hyperkalemia. 6.0 3. Acute on chronic renal failure. Her baseline creatinine 2.5, now is 3.6. 4. Diabetes. 5. Hypertension. 6. Hyperlipidemia. 7. Pulmonary edema. 8. Diabetic with gastroparesis. PLAN: d/c to [place] tomorrow. cardiac cath no blockages cxr improving dialysis tomorrow perm dialysis catheter placed Needs fci dialysis spoke with renal troponin elevated 1.6. echo 40 % ejf sono kidney ch renal disease. pot down to 4.2 today spoke with renal. Comment Review of Relevant I have reviewed the following items yana (where applicable) has been applied. Labs Laboratory Tests Test 05/28/18 11:26 05/28/18 16:42 05/28/18 17:27 05/28/18 20:54 Glucose (Fingerstick) 126 mg/dL (70-99) 45 mg/dL (70-99) 144 mg/dL (70-99) 248 mg/dL (70-99) Test 05/29/18 03:45 05/29/18 07:44 Sodium Level 142 mmol/L (136-145) Potassium Level 4.3 mmol/L (3.5-5.1) Chloride Level 104 mmol/L (98-107) Carbon Dioxide Level 32 mmol/L (21-32) Anion Gap 6 (6-14) Blood Urea Nitrogen 23 mg/dL (7-20) Creatinine 3.1 mg/dL (0.6-1.0) Estimated GFR (Cockcroft-Gault) 15.3 Glucose Level 126 mg/dL (70-99) Calcium Level 7.7 mg/dL (8.5-10.1) Phosphorus Level 4.0 mg/dL (2.6-4.7) Albumin 1.9 g/dL (3.4-5.0) Glucose (Fingerstick) 124 mg/dL (70-99) Medications Current Medications Acetaminophen (Tylenol) 500 mg 1X PRN PRN PO MILD PAIN / TEMP; Start 05/28/18 at 10:15; Stop 05/29/18 at 10:14 Albumin Human 200 ml @ 200 mls/hr 1X PRN PRN IV Hypotension; Start 05/28/18 at 10:15; Stop 05/28/18 at 16:14; Status DC Bisacodyl (Dulcolax Tab) 10 mg 1X ONCE PO ; Start 05/29/18 at 09:30; Stop 05/29 at 09:38; Status DC Cefazolin Sodium/ Dextrose 50 ml @ 100 mls/hr 1X ONCE IV Last administered on 05/28/18at 10:12; Start 05/28/18 at 10:15; Stop 05/28/18 at 10:44; Status DC Diphenhydramine HCl (Benadryl) 25 mg 1X PRN PRN IV ITCHING; Start 05/28/18 at 10:15; Stop 05/29/18 at 10:14 Diphenhydramine HCl (Benadryl) 25 mg 1X PRN PRN IV ITCHING; Start 05/28/18 at 10:15; Stop 05/29/18 at 10:14 Fentanyl Citrate (Fentanyl 2ml Vial) 100 mcg STK-MED ONCE .ROUTE ; Start at 10:23; Stop 05/28/18 at 10:24; Status DC Heparin Sodium (Porcine) (Heparin Sodium) 2,500 unit 1X ONCE IART Last administered on 05/28/18at 10:51; Start 05/28/18 at 10:45; Stop 05/28/18 at 10:46 ; Status DC Heparin Sodium (Porcine) (Heparin Sodium) 10,000 unit STK-MED ONCE .ROUTE ; Start 05/28/18 at 10:23; Stop 05/28/18 at 10:24; Status DC Heparin Sodium/ Sodium Chloride (HEPARIN for ARTERIAL LINE FLUSH) 1,000 unit 1X ONCE IART Last administered on 05/28/18at 10:50; Start 05/28/18 at 10:45; Stop 05/28/18 at 10:46; Status DC Info (CONTRAST GIVEN -- Rx MONITORING) 1 each PRN DAILY PRN MC SEE COMMENTS; Start 05/28/18 at 11:00; Stop 05/30/18 at 10:59 Info (PHARMACY MONITORING -- do not chart) 1 each PRN DAILY PRN MC SEE COMMENTS ; Start 05/28/18 at 10:15 Iodixanol (Visipaque 320) 100 ml 1X ONCE IART Last administered on 05/28/18at 10:50; Start 05/28/18 at 10:45; Stop 05/28/18 at 10:46; Status DC Lidocaine HCl (Xylocaine-Mpf 1% 2ml Vial) 1 ml 1X ONCE INJ Last administered on 05/28/18at 10:50; Start 05/28/18 at 10:45; Stop 05/28/18 at 10:46; Status DC Midazolam HCl (Versed) 2 mg STK-MED ONCE .ROUTE ; Start 05/28/18 at 10:23; Stop 05/28/18 at 10:24; Status DC Nitroglycerin (Nitroglycerin) 200 mcg 1X ONCE IART Last administered on at 10:50; Start 05/28/18 at 10:45; Stop 05/28/18 at 10:46; Status DC Nitroglycerin (Nitroglycerin) 200 mcg STK-MED ONCE .ROUTE ; Start 05/28/18 at 10 :24; Stop 05/28/18 at 10:25; Status DC Nitroglycerin (Nitrostat) 0.4 mg PRN Q5MIN PRN SL CHEST PAIN; Start 05/28/18 at 11:00 Non-Formulary Medication (Dulaglutide (Trulicity)) 7.5 mg Tu SQ ; Start at 21:00 Ondansetron HCl (Zofran Odt) 4 mg PRN Q6HRS PRN PO nausea; Start 05/29/18 at 09 :45 Polyethylene Glycol (miraLAX PACKET) 17 gm BID PO ; Start 05/29/18 at 10:00 Sodium Chloride 1,000 ml @ 400 mls/hr Q2H30M PRN IV PATENCY; Start 05/28/18 at 10:08; Stop 05/28/18 at 22:07; Status DC Sodium Chloride 1,000 ml @ 1,000 mls/hr Q1H PRN IV hypotension; Start 05/28/18 at 10:08; Stop 05/28/18 at 16:07; Status DC Sodium Chloride (Normal Saline Flush) 10 ml 1X PRN PRN IV AP catheter pack; Start 05/28/18 at 10:15; Stop 05/29/18 at 10:14 Sodium Chloride (Normal Saline Flush) 10 ml 1X PRN PRN IV SENIOR PATIENT ACCOUNT REPRESENTATIVE catheter pack; Start 05/28/18 at 10:15; Stop 05/29/18 at 10:14 Verapamil HCl (Verapamil) 2.5 mg 1X ONCE IART Last administered on 05/28/18at 10:51; Start 05/28/18 at 10:45; Stop 05/28/18 at 10:46; Status DC Verapamil HCl (Verapamil) 5 mg STK-MED ONCE .ROUTE ; Start 05/28/18 at 10:23; Stop 05/28/18 at 10:24; Status DC Vitals/I & O Vital Sign - Last 24 Hours 05/28/18 05/28/18 05/28/18 05/28/18 10:08 10:51 10:56 11:15 Pulse 79 79 76 Resp 12 21 20 Pulse Ox 96 89 89 O2 Delivery Nasal Cannula Nasal Cannula Nasal Cannula O2 Flow Rate 2.0 4.0 4.0 05/28/18 05/28/18 05/28/18 05/28/18 11:30 11:45 11:45 11:45 Pulse 80 78 94 76 Resp 20 18 B/P (MAP) 210/84 210/84 Pulse Ox 89 89 O2 Delivery Nasal Cannula Nasal Cannula O2 Flow Rate 4.0 4.0 05/28/18 05/28/18 05/28/18 05/28/18 11:46 11:58 12:00 12:15 Pulse 78 78 78 74 Resp 18 B/P (MAP) 210/84 210/84 Pulse Ox 89 89 O2 Delivery Nasal Cannula Nasal Cannula O2 Flow Rate 4.0 4.0 05/28/18 05/28/18 05/28/18 05/28/18 13:00 14:00 15:00 16:00 Pulse 80 76 72 72 Resp 18 18 18 Pulse Ox 89 89 89 89 O2 Delivery Nasal Cannula Nasal Cannula Nasal Cannula Room Air O2 Flow Rate 4.0 4.0 4.0 05/28/18 05/28/18 05/28/18 05/28/18 17:02 17:03 18:28 18:30 Pulse 74 78 76 76 B/P (MAP) 167/70 167/70 Pulse Ox 89 89 O2 Delivery Nasal Cannula Nasal Cannula O2 Flow Rate 4.0 4.0 05/28/18 05/28/18 05/28/18 05/28/18 18:37 19:46 20:00 22:12 Temp 98.7 98.7 Pulse 76 80 80 Resp 20 B/P (MAP) 139/62 (87) 139/62 Pulse Ox 89 96 O2 Delivery Nasal Cannula Nasal Cannula Nasal Cannula O2 Flow Rate 4.0 2.0 2.0 05/28/18 05/29/18 05/29/18 05/29/18 22:51 03:20 07:00 08:00 Temp 98.6 97.6 97.9 98.6 97.6 97.9 Pulse 84 69 77 Resp 20 20 18 B/P (MAP) 164/74 (104) 174/77 (109) 183/79 (113) Pulse Ox 97 99 98 O2 Delivery Nasal Cannula Nasal Cannula Nasal Cannula Nasal Cannula O2 Flow Rate 2.0 2.0 2.0 2.0 05/29/18 05/29/18 05/29/18 05/29/18 08:39 08:40 08:42 08:49 Pulse 77 77 77 77 B/P (MAP) 183/79 183/79 183/79 183/79 Intake and Output 05/28/18 05/28/18 05/29/18 14:59 22:59 06:59 Intake Total 240 ml 300 ml Balance 240 ml 300 ml JL MARTINEZ MD May 29, 2018 10:06
--- NOTE | 2018-05-29 10:56 | PDOC ---
Renal-Progress Notes Subjective Notes Notes NO NEW COMPLAINTS EXCEPT MUSCLE STIFFNESS History of Present Illness Hx of present illness TIRED Vitals Vitals Vital Signs Date Time Temp Pulse Resp B/P (MAP) Pulse Ox O2 Delivery O2 Flow Rate FiO2 05/29/18 08:49 77 183/79 05/29/18 08:00 Nasal Cannula 2.0 05/29/18 07:00 97.9 18 98 97.9 Weight Weight [ ] I.O. Intake and Output Intake and Output 05/29/18 07:00 Intake Total 540 ml Balance 540 ml Intake Oral 540 ml Labs Labs Laboratory Tests Test 05/28/18 11:26 05/28/18 16:42 05/28/18 17:27 05/28/18 20:54 Glucose (Fingerstick) 126 mg/dL (70-99) 45 mg/dL (70-99) 144 mg/dL (70-99) 248 mg/dL (70-99) Test 05/29/18 03:45 05/29/18 07:44 Sodium Level 142 mmol/L (136-145) Potassium Level 4.3 mmol/L (3.5-5.1) Chloride Level 104 mmol/L (98-107) Carbon Dioxide Level 32 mmol/L (21-32) Anion Gap 6 (6-14) Blood Urea Nitrogen 23 mg/dL (7-20) Creatinine 3.1 mg/dL (0.6-1.0) Estimated GFR (Cockcroft-Gault) 15.3 Glucose Level 126 mg/dL (70-99) Calcium Level 7.7 mg/dL (8.5-10.1) Phosphorus Level 4.0 mg/dL (2.6-4.7) Albumin 1.9 g/dL (3.4-5.0) Glucose (Fingerstick) 124 mg/dL (70-99) Review of Systems Constitutional: yes: weakness, alert, oriented Ears/Nose/Throat: Yes: no symptom reported Eyes: Yes: no symptom reported Pulmonary: Yes no symptom reported Cardiovascular: Yes no symptom reported Gastrointestional: Yes: constipation Genitourinary: Yes: no symptom reported Musculoskeletal: Yes: no symptom reported Skin: Yes no symptom reported Psychiatric/Neurological: Yes: no symptom reported Endocrine: Yes: no symptom reported Physical Exam General Appearance: no apparent distress Respiratory: bilateral CTA Heart: S1S2 Abdomen: soft, bowel sounds present Genitourinary: no mass Neurology: alert, oriented Musculoskeletal: Osteoarthritis Assessment Assessment IMP NEW ESRD ANEMIA DM II HTN S/P HEART CATH-NO INTERVENTION PLAN HD TOMORROW HAVE ASKED SW TO SET UP OP HD WILL FOLLOW D/W ALANNA BAHENA MD May 29, 2018 10:56
[2018-05-29 11:21] VITALS: BP 126/40
--- NOTE | 2018-05-29 11:55 | NUR ---
SS following up with discharge planning. SS was notified that pt will need outpatient dialysis set up prior to return to her LTC facility. SS phoned and faxed referral to [facility], ext [phone]; fax [phone]. SS still needing Hep B Total Core results. SS will fax lab results once received. Pt's RN notified.
[2018-05-29 15:06] VITALS: BP 141/63
[2018-05-29 19:15] VITALS: BP 142/63
[2018-05-29] MEDS ORDERED: DULAGLUTIDE SQ SCH (21:00)
[2018-05-29] MEDS: HYDROcodone/APAP 5/325MG 1 TAB TABLET PO SCH (21:42)
[2018-05-29] MEDS: ATORVASTATIN CALCIUM 10 MG TABLET. PO SCH (21:42)
[2018-05-29] MEDS: INSULIN GLARGINE 300 UNITS/3 ML INSULN.PEN. SQ SCH (21:48)
[2018-05-29 23:05] VITALS: BP 147/67
[2018-05-30 03:25] VITALS: BP 159/69
[2018-05-30 04:20] LABS: ALBUMIN 1.9 g/dL (3.4-5.0); CALCIUM 7.8 mg/dL (8.5-10.1); CREATININE 4.6 mg/dL (0.6-1.0); GFR 9.7; PHOSPHORUS 5.2 mg/dL (2.6-4.7); POTASSIUM 4.4 mmol/L (3.5-5.1)
[2018-05-30 07:42] VITALS: BP 169/72
[2018-05-30] MEDS ORDERED: LABETALOL 20 MG/4 ML DISP.SYRIN. IVP PRN (07:45)
[2018-05-30] MEDS ORDERED: IV NORMAL SALINE 1000ML BAG 1,000 ML IV PRN ×2 (07:45)
[2018-05-30] MEDS ORDERED: DIALYSIS PATIENT. MC PRN ×2 (07:45)
[2018-05-30] MEDS: INSULIN LISPRO 300 UNITS/3 ML INSULN.PEN. SQ SCH ×6 (08:00→17:52)
--- NOTE | 2018-05-30 08:56 | NUR ---
SS following up with discharge planning. SS phoned and faxed Hep B Total Core results to [facility], ext [phone]; fax [phone]. SS awaiting chair time at this time.
--- NOTE | 2018-05-30 10:47 | SNU/HH DC ---
DISCHARGE ORDERS DISCHARGE INFORMATION: DISCHARGE DATE: May 30, 2018 CONDITION ON DISCHARGE: Stable CODE STATUS: Code Status: Full LONG TERM: SNF STAY <30 DAYS: Yes POST DISCHARGE ORDERS: ACTIVITY ORDERS: No restrictions, Resume previous activity, Activity as tolerated WEIGHT BEARING STATUS: No restrictions, Full weight bearing, As tolerated DIET AFTER DISCHARGE: ADA CHECKS AFTER DISCHARGE: CHECKS AFTER DISCHARGE: Check blood press - daily, Check blood sugar, ac/hs FOLLOW-UP: ADDITIONAL FOLLOW-UP: out pt dialysis 3 times a week LAB ORDERS FOR FOLLOW-UP: cbc ,bmp weekly for 4 weeks TREATMENT/EQUIPMENT ORDERS: ADAPTIVE EQUIPMENT NEEDED: None Physical Therapy For: Evalulation/Treatment Occupational Therapy For: Evaluation/Treatment DISCHARGE MEDICATIONS: Home Meds Reported Medications Hydralazine Hcl (HYDRALAZINE HCL) 25 Mg Tablet, 25 MG PO QID for HTN, TAB 05/23/18 Carvedilol (COREG) 25 Mg Tablet, 12.5 MG PO BIDWMEALS for CARDIAC, TAB 05/23/18 Atorvastatin Calcium (ATORVASTATIN CALCIUM) 10 Mg Tablet, 10 MG PO HS for FOR CHOLESTEROL, #30 TAB 0 Refills 03/17/18 Ondansetron Hcl (ZOFRAN) 4 Mg Tablet, 1 TAB PO Q6HRS for nausea, #20 TAB 03/17/18 Polyethylene Glycol 3350 (MIRALAX) 17 Gm Powd.pack, 1 PACKET PO DAILY for constipation, #30 PACKET 3 Refills 03/17/18 Lisinopril (LISINOPRIL) 2.5 Mg Tablet, 1 TAB PO DAILY for htn, #30 TAB 5 Refills 03/17/18 Aspirin (ASPIRIN) 81 Mg Tab.chew, 1 TAB PO DAILY for heart disease, #30 TAB 3 Refills 03/17/18 Insulin Aspart (NOVOLOG FLEXPEN) 100 Unit/1 Ml Insuln.pen, 30 UNIT SQ TID for diabetes, SYR 03/17/18 Dulaglutide (Trulicity) 0.75 Mg/0.5 Ml Pen.injctr, 7.5 MG SQ WEEKLY for diabetes , EACH 03/17/18 Insulin Detemir (LEVEMIR) 100 Unit/1 Ml Vial, 50 UNIT SQ HS for diabetes, VIAL 03/17/18 Hydrocodone/Acetaminophen (Lortab 5-325 mg Tablet) 1 Each Tablet, 1 TAB PO HS for pain MDD 4 grams, TAB 0 Refills daily at bedtime 01/26/16 JL MARTINEZ MD May 30, 2018 10:47
--- NOTE | 2018-05-30 12:00 | PDOC ---
Renal-Progress Notes Subjective Notes Notes NONE History of Present Illness Hx of present illness BETTER Vitals Vitals Vital Signs Date Time Temp Pulse Resp B/P (MAP) Pulse Ox O2 Delivery O2 Flow Rate FiO2 05/30/18 08:00 Nasal Cannula 2.0 05/30/18 07:42 97.6 70 18 169/72 (104) 98 97.6 Weight Weight [ ] I.O. Intake and Output Intake and Output 05/30/18 06:59 Intake Total 560 ml Output Total 300 ml Balance 260 ml Intake Oral 560 ml Output Urine Total 300 ml # Voids 2 # Bowel Movements 1 Labs Labs Laboratory Tests Test 05/29/18 16:44 05/29/18 18:02 05/29/18 20:57 05/30/18 02:55 Glucose (Fingerstick) 64 mg/dL (70-99) 95 mg/dL (70-99) 165 mg/dL (70-99) Sodium Level 138 mmol/L (136-145) Potassium Level 4.4 mmol/L (3.5-5.1) Chloride Level 102 mmol/L (98-107) Carbon Dioxide Level 30 mmol/L (21-32) Anion Gap 6 (6-14) Blood Urea Nitrogen 39 mg/dL (7-20) Creatinine 4.6 mg/dL (0.6-1.0) Estimated GFR (Cockcroft-Gault) 9.7 Glucose Level 96 mg/dL (70-99) Calcium Level 7.8 mg/dL (8.5-10.1) Phosphorus Level 5.2 mg/dL (2.6-4.7) Albumin 1.9 g/dL (3.4-5.0) Test 05/30/18 07:19 Glucose (Fingerstick) 91 mg/dL (70-99) Review of Systems Constitutional: yes: weakness, alert, oriented Ears/Nose/Throat: Yes: no symptom reported Eyes: Yes: no symptom reported Pulmonary: Yes no symptom reported Cardiovascular: Yes no symptom reported Gastrointestional: Yes: constipation Genitourinary: Yes: no symptom reported Musculoskeletal: Yes: no symptom reported Skin: Yes no symptom reported Psychiatric/Neurological: Yes: no symptom reported Endocrine: Yes: no symptom reported Physical Exam General Appearance: no apparent distress Respiratory: bilateral CTA Heart: S1S2 Abdomen: soft, bowel sounds present Genitourinary: no mass Neurology: alert, oriented Musculoskeletal: Osteoarthritis Assessment Assessment IMP NEW ESRD ANEMIA DM II HTN S/P HEART CATH-NO INTERVENTION PLAN HD TODAY UF TO [facility] D/C WHEN OP HD IS SET UP WILL FOLLOW D/W ALANNA BAHENA MD May 30, 2018 12:00
--- NOTE | 2018-05-30 12:23 | PDOC ---
PROGRESS NOTES Subjective Subjective feeling good Objective Objective Vital Signs Date Time Temp Pulse Resp B/P (MAP) Pulse Ox O2 Delivery O2 Flow Rate FiO2 05/30/18 08:00 Nasal Cannula 2.0 05/30/18 07:42 97.6 70 18 169/72 (104) 98 97.6 Intake and Output 05/30/18 06:59 Intake Total 560 ml Output Total 300 ml Balance 260 ml Intake Oral 560 ml Output Urine Total 300 ml # Voids 2 # Bowel Movements 1 Physical Exam Abdomen: Soft Heart: Regular rate, Normal S1, Normal S2, Other (2/6 systolic murmur ) Extremities: Other (1+ bilateral LE edema ) General: Alert, Oriented X3, Cooperative, No acute distress HEENT: Atraumatic, Mucous membr. moist/pink Lungs: Other (faint crackles, diminished bases ) MUSCULOSKELETAL: Osteoarthritic changes both hands Neck: No JVD Neuro: Normal speech, Sensation intact Psych/Mental Status: Mental status NL, Mood NL Skin: No breakdown, No significant lesion Assessment Assessment FINAL IMPRESSION: 1. Code blue. The patient has developed bradycardia, unresponsive, Code blue was called, Pt was revived with 2 rounds of CPR and 1 epinephrine. 2. Hyperkalemia. 6.0 3. Acute on chronic renal failure. Her baseline creatinine 2.5, now is 3.6. 4. Diabetes. 5. Hypertension. 6. Hyperlipidemia. 7. Pulmonary edema. 8. Diabetic with gastroparesis. PLAN: d/c to [place] today cardiac cath -no blockages cxr improving dialysis today perm dialysis catheter placed Needs roasterman dialysis spoke with renal troponin elevated 1.6. echo 40 % ejf sono kidney ch renal disease. pot down to 4.2 today Comment Review of Relevant I have reviewed the following items yana (where applicable) has been applied. Labs Laboratory Tests Test 05/29/18 16:44 05/29/18 18:02 05/29/18 20:57 05/30/18 02:55 Glucose (Fingerstick) 64 mg/dL (70-99) 95 mg/dL (70-99) 165 mg/dL (70-99) Sodium Level 138 mmol/L (136-145) Potassium Level 4.4 mmol/L (3.5-5.1) Chloride Level 102 mmol/L (98-107) Carbon Dioxide Level 30 mmol/L (21-32) Anion Gap 6 (6-14) Blood Urea Nitrogen 39 mg/dL (7-20) Creatinine 4.6 mg/dL (0.6-1.0) Estimated GFR (Cockcroft-Gault) 9.7 Glucose Level 96 mg/dL (70-99) Calcium Level 7.8 mg/dL (8.5-10.1) Phosphorus Level 5.2 mg/dL (2.6-4.7) Albumin 1.9 g/dL (3.4-5.0) Test 05/30/18 07:19 Glucose (Fingerstick) 91 mg/dL (70-99) Medications Current Medications Info (PHARMACY MONITORING -- do not chart) 1 each PRN DAILY PRN MC SEE COMMENTS ; Start 05/30/18 at 07:45 Info (PHARMACY MONITORING -- do not chart) 1 each PRN DAILY PRN MC SEE COMMENTS ; Start 05/30/18 at 07:45; Status UNV Labetalol HCl (Normodyne Iv Push) 10 mg PRN Q1HR PRN IVP SBP > 180; Start 05/30 at 07:45; Stop 05/31/18 at 07:44 Non-Formulary Medication (Dulaglutide (Trulicity)) 7.5 mg Tu SQ ; Start at 21:00 Sodium Chloride 1,000 ml @ 400 mls/hr Q2H30M PRN IV PATENCY; Start 05/30/18 at 07:45; Stop 05/30/18 at 19:44 Sodium Chloride 1,000 ml @ 1,000 mls/hr Q1H PRN IV hypotension; Start 05/30/18 at 07:45; Stop 05/30/18 at 13:44 Vitals/I & O Vital Sign - Last 24 Hours 05/29/18 05/29/18 05/29/18 05/29/18 13:22 15:06 18:31 18:32 Temp 97.9 97.9 Pulse 79 78 78 78 Resp 18 B/P (MAP) 126/40 141/63 (89) 141/63 141/63 Pulse Ox 100 O2 Delivery Nasal Cannula O2 Flow Rate 2.0 05/29/18 05/29/18 05/29/18 05/29/18 19:15 20:00 21:42 21:42 Temp 98.0 98.0 Pulse 78 78 Resp 18 B/P (MAP) 142/63 (89) 142/63 Pulse Ox 100 100 O2 Delivery Nasal Cannula Nasal Cannula Nasal Cannula O2 Flow Rate 2.0 2.0 05/29/18 05/30/18 05/30/18 05/30/18 23:05 03:25 07:42 08:00 Temp 98.0 97.6 97.6 98.0 97.6 97.6 Pulse 79 65 70 Resp 20 18 18 B/P (MAP) 147/67 (93) 159/69 (99) 169/72 (104) Pulse Ox 99 100 98 O2 Delivery Nasal Cannula Nasal Cannula Nasal Cannula Nasal Cannula O2 Flow Rate 2.0 2.0 2.0 2.0 Intake and Output 05/29/18 05/29/18 05/30/18 14:59 22:59 06:59 Intake Total 360 ml 200 ml Output Total 300 ml Balance 360 ml -100 ml JL MARTINEZ MD May 30, 2018 12:23
[2018-05-30] MEDS: hydrALAZINE 25 MG TABLET PO SCH ×4 (13:00→22:19)
--- NOTE | 2018-05-30 13:04 | PDOC ---
Subjective: Subjective: Feeling well, tolerating PO, had a stool. Objective: Vital Signs: Vital Signs Date Time Temp Pulse Resp B/P (MAP) Pulse Ox O2 Delivery O2 Flow Rate FiO2 05/30/18 08:00 Nasal Cannula 2.0 05/30/18 07:42 97.6 70 18 169/72 (104) 98 97.6 Labs: Laboratory Tests Test 05/29/18 16:44 05/29/18 18:02 05/29/18 20:57 05/30/18 02:55 Glucose (Fingerstick) 64 mg/dL 95 mg/dL 165 mg/dL Sodium Level 138 mmol/L Potassium Level 4.4 mmol/L Chloride Level 102 mmol/L Carbon Dioxide Level 30 mmol/L Anion Gap 6 Blood Urea Nitrogen 39 mg/dL Creatinine 4.6 mg/dL Estimated GFR (Cockcroft-Gault) 9.7 Glucose Level 96 mg/dL Calcium Level 7.8 mg/dL Phosphorus Level 5.2 mg/dL Albumin 1.9 g/dL Test 05/30/18 07:19 05/30/18 11:54 05/30/18 12:13 05/30/18 12:56 Glucose (Fingerstick) 91 mg/dL 65 mg/dL 81 mg/dL 102 mg/dL PE: GEN: dialyzing LUNGS: CTAB HEART: RRR ABD: S/ND/NT NEURO/PSYCH: A & O 3 A/P: ESRD on HD, chronic anemia Chronic nausea, h/o gastroparesis - stable Constipation - resolved -- DC per primary. AMINA GANT May 30, 2018 13:03
[2018-05-30] MEDS: POLYETHYLENE GLYCOL 3350 17 GM PACKET. PO SCH ×2 (13:26→22:18)
[2018-05-30] MEDS: ASPIRIN ENTERIC COATED 81 MG TABLET.DR. PO SCH (13:27)
[2018-05-30] MEDS: CARVEDILOL 12.5 MG TABLET. PO SCH ×2 (13:28→17:47)
[2018-05-30] MEDS: FAMOTIDINE 20 MG TABLET. PO SCH (13:28)
[2018-05-30] MEDS: amLODIPine BESYLATE 5 MG TABLET PO SCH (13:30)
--- NOTE | 2018-05-30 13:58 | NUR ---
SS following up with discharge planning. SS received phone contact from [facility] Admissions stating that pt is being reviewed by [facility] but would not be able to get first chair time until seven days from now. Pt's RN, Dr. Jansen, and administration notified. Discharge orders received for return to [facility]. SS continuing to await dialysis chair time.
[2018-05-30 14:44] VITALS: BP 126/60
--- NOTE | 2018-05-30 15:19 | NUR ---
SS following up with discharge planning. SS received phone contact from Elizabeth at [facility] stating that pt does have a confirmed chair time on Monday, Monday, and Monday at 1500, but would not be able to start services until 06/06/2018. She reported that she has communicated with Dr. Jansen. Pt's RN notified.
--- NOTE | 2018-05-30 16:06 | PDOC ---
Provider Note Provider Note Discharge summary dictated. #[id number] JL MARTINEZ MD May 30, 2018 16:06
[2018-05-30 19:20] VITALS: BP 125/46
[2018-05-30] MEDS: ATORVASTATIN CALCIUM 10 MG TABLET. PO SCH (22:19)
[2018-05-30] MEDS: HYDROcodone/APAP 5/325MG 1 TAB TABLET PO SCH (22:20)
[2018-05-30] MEDS: INSULIN GLARGINE 300 UNITS/3 ML INSULN.PEN. SQ SCH (22:33)
[2018-05-30 23:33] VITALS: BP 160/105
--- NOTE | 2018-05-31 00:11 | DS ---
DATE OF DISCHARGE: 05/30/2018 REASON FOR ADMISSION TO THE HOSPITAL: The patient had a code blue outpatient, had EGD. The patient was bradycardic, unresponsive, hyperkalemic. The patient was admitted to the ICU after that. CONSULTATIONS: Dr. Tejada and Dr. Diaz. PROCEDURES DONE: 1. Echocardiogram. 2. Cardiac catheterization. 3. Hemodialysis. 4. Dialysis catheter temporary as well as permanent dialysis catheter and the other was hemodialysis. HOSPITAL COURSE: The patient is a 62-year-old female with history of diabetes, hypertension, hyperlipidemia, chronic kidney disease, around 2.5 creatinine. She had outpatient EGD procedure, was made okay. When she was in recovery, she became unresponsive and bradycardic. In the recovery, viv barkley was called. She had a CPR 2 rounds with one AP and chest compressions, no cardiac shock was given. The patient after the viv barkley was revived, admitted to the ICU, did not require any intubation. Her potassium was high at 6.3 and creatinine was 4. The patient was given Kayexalate, did not go down and the patient had emergency dialysis, temporary dialysis catheter was placed. The patient's potassium improved, bradycardia improved and her kidney function was staying between 4-5 and it was felt that the patient is now end-stage renal failure and the needs dialysis. The patient was seen by Dr. Diaz, Nephrology, had a permanent dialysis catheter placed and she was dialyzed. The patient had an echocardiogram, showed ejection fraction 45%, some global hypokinesia of the left ventricle, moderate mitral regurgitation, mild tricuspid, PA pressure was 33. The patient had an elevated troponin. A1c was 6.5. Troponin reached to 0.19. The patient was taken to cardiac cath showed no significant blockages. Her LDL was high at 129. Thyroid was normal. The patient was dialyzed in the hospital. She did good and recommended continue outpatient dialysis and the patient was discharged back to the half-way. FINAL DIAGNOSES: 1. Code blue. The patient had bradycardia secondary to hyperkalemia. 2. [id number] kidney disease. The patient now end-stage renal disease, on hemodialysis. 3. Slight elevation in troponin, non-ST elevation myocardial infarction and cardiac catheterization showed no major blockages. 4. Diabetes, insulin-dependent. 5. Hypertension. 6. Hyperlipidemia. 7. Gastroesophageal reflux disease. DISPOSITION: To half-way, scheduled for outpatient dialysis 3 times a week and see [facility]AD for discharge medications. JL MARTINEZ MD DR: UBALDO/alexis JOB#: [id number] / [id number]
[2018-05-31 03:20] VITALS: BP 175/72
[2018-05-31 04:10] VITALS: BP 159/72
[2018-05-31 05:10] LABS: CALCIUM 7.7 mg/dL (8.5-10.1); CREATININE 3.5 mg/dL (0.6-1.0); GFR 13.3; PHOSPHORUS 4.4 mg/dL (2.6-4.7); POTASSIUM 4.5 mmol/L (3.5-5.1)
[2018-05-31 07:00] VITALS: BP 152/70
[2018-05-31] MEDS: INSULIN LISPRO 300 UNITS/3 ML INSULN.PEN. SQ SCH ×3 (08:00→12:00)
[2018-05-31] MEDS: POLYETHYLENE GLYCOL 3350 17 GM PACKET. PO SCH (09:05)
[2018-05-31] MEDS: ASPIRIN ENTERIC COATED 81 MG TABLET.DR. PO SCH (09:05)
[2018-05-31] MEDS: FAMOTIDINE 20 MG TABLET. PO SCH (09:05)
[2018-05-31] MEDS: CARVEDILOL 12.5 MG TABLET. PO SCH (09:06)
[2018-05-31] MEDS: amLODIPine BESYLATE 5 MG TABLET PO SCH (09:06)
[2018-05-31] MEDS: hydrALAZINE 25 MG TABLET PO SCH ×2 (09:06→12:46)
--- NOTE | 2018-05-31 10:04 | PDOC ---
PROGRESS NOTES Subjective Subjective feeling good Objective Objective Vital Signs Date Time Temp Pulse Resp B/P (MAP) Pulse Ox O2 Delivery O2 Flow Rate FiO2 05/31/18 09:06 74 152/70 05/31/18 07:00 97.9 18 99 Room Air 97.9 05/30/18 23:33 2.0 Intake and Output 05/31/18 06:59 Intake Total 780 ml Balance 780 ml Intake Oral 780 ml Physical Exam Abdomen: Soft Heart: Regular rate, Normal S1, Normal S2, Other (2/6 systolic murmur ) Extremities: Other (1+ bilateral LE edema ) General: Alert, Oriented X3, Cooperative, No acute distress HEENT: Atraumatic, Mucous membr. moist/pink Lungs: Other (faint crackles, diminished bases ) MUSCULOSKELETAL: Osteoarthritic changes both hands Neck: No JVD Neuro: Normal speech, Sensation intact Psych/Mental Status: Mental status NL, Mood NL Skin: No breakdown, No significant lesion Assessment Assessment FINAL IMPRESSION: 1. Code blue. The patient has developed bradycardia, unresponsive, Code blue was called, Pt was revived with 2 rounds of CPR and 1 epinephrine. 2. Hyperkalemia. 6.0 3. Acute on chronic renal failure. Her baseline creatinine 2.5, now is 3.6. 4. Diabetes. 5. Hypertension. 6. Hyperlipidemia. 7. Pulmonary edema. 8. Diabetic with gastroparesis. PLAN: d/c to [facility] when ever dialysis chair available cardiac cath -no blockages cxr improving dialysis tomorrow perm dialysis catheter placed Needs terminal superintendent dialysis spoke with renal troponin elevated 1.6. echo 40 % ejf sono kidney ch renal disease. pot down to 4.2 today Comment Review of Relevant I have reviewed the following items yana (where applicable) has been applied. Labs Laboratory Tests Test 05/30/18 11:54 05/30/18 12:13 05/30/18 12:56 05/30/18 16:43 Glucose (Fingerstick) 65 mg/dL (70-99) 81 mg/dL (70-99) 102 mg/dL (70-99) 154 mg/dL (70-99) Test 05/30/18 20:51 05/31/18 04:15 05/31/18 07:44 Glucose (Fingerstick) 156 mg/dL (70-99) 97 mg/dL (70-99) Sodium Level 137 mmol/L (136-145) Potassium Level 4.5 mmol/L (3.5-5.1) Chloride Level 100 mmol/L (98-107) Carbon Dioxide Level 31 mmol/L (21-32) Anion Gap 6 (6-14) Blood Urea Nitrogen 30 mg/dL (7-20) Creatinine 3.5 mg/dL (0.6-1.0) Estimated GFR (Cockcroft-Gault) 13.3 Glucose Level 145 mg/dL (70-99) Calcium Level 7.7 mg/dL (8.5-10.1) Phosphorus Level 4.4 mg/dL (2.6-4.7) Albumin 2.0 g/dL (3.4-5.0) Medications Current Medications Insulin Human Lispro (HumaLOG) 15 units TIDWMEALS SQ ; Start 05/31/18 at 12:00 Vitals/I & O Vital Sign - Last 24 Hours 05/30/18 05/30/18 05/30/18 05/30/18 13:00 13:28 13:29 13:30 Pulse 74 74 74 74 B/P (MAP) 126/60 162/69 162/69 162/69 05/30/18 05/30/18 05/30/18 05/30/18 14:44 17:46 17:47 19:20 Temp 98.2 97.7 98.2 97.7 Pulse 74 74 74 78 Resp 18 17 B/P (MAP) 126/60 (82) 126/60 126/60 125/46 (72) Pulse Ox 100 96 O2 Delivery Nasal Cannula Nasal Cannula O2 Flow Rate 2.0 05/30/18 05/30/18 05/30/18 05/30/18 19:40 22:19 22:20 23:20 Pulse 78 Resp 20 18 B/P (MAP) 125/46 Pulse Ox 96 98 O2 Delivery Nasal Cannula Nasal Cannula Nasal Cannula O2 Flow Rate 2.0 2.0 2.0 05/30/18 05/31/18 05/31/18 05/31/18 23:33 03:20 04:10 07:00 Temp 98.1 98.0 97.9 98.1 98.0 97.9 Pulse 77 75 75 74 Resp 18 18 18 B/P (MAP) 160/105 (123) 175/72 (106) 159/72 (101) 152/70 (97) Pulse Ox 98 94 99 O2 Delivery Nasal Cannula Room Air Room Air O2 Flow Rate 2.0 05/31/18 05/31/18 05/31/18 09:06 09:06 09:06 Pulse 74 74 74 B/P (MAP) 152/70 152/70 152/70 Intake and Output 05/30/18 05/30/18 05/31/18 14:59 22:59 06:59 Intake Total 240 ml 240 ml 300 ml Balance 240 ml 240 ml 300 ml JL MARTINEZ MD May 31, 2018 10:04
[2018-05-31] MEDS ORDERED: INSU100I17 SQ (10:06)
[2018-05-31 11:00] VITALS: BP 123/47
--- NOTE | 2018-05-31 11:02 | PDOC ---
Subjective: Subjective: Feeling okay but wants help sitting up in bed to eat breakfast. Objective: Vital Signs: Vital Signs Date Time Temp Pulse Resp B/P (MAP) Pulse Ox O2 Delivery O2 Flow Rate FiO2 05/31/18 09:06 74 152/70 05/31/18 08:00 Nasal Cannula 2.0 05/31/18 07:00 97.9 18 99 97.9 Labs: Laboratory Tests Test 05/30/18 11:54 05/30/18 12:13 05/30/18 12:56 05/30/18 16:43 Glucose (Fingerstick) 65 mg/dL 81 mg/dL 102 mg/dL 154 mg/dL Test 05/30/18 20:51 05/31/18 04:15 05/31/18 07:44 Glucose (Fingerstick) 156 mg/dL 97 mg/dL Sodium Level 137 mmol/L Potassium Level 4.5 mmol/L Chloride Level 100 mmol/L Carbon Dioxide Level 31 mmol/L Anion Gap 6 Blood Urea Nitrogen 30 mg/dL Creatinine 3.5 mg/dL Estimated GFR (Cockcroft-Gault) 13.3 Glucose Level 145 mg/dL Calcium Level 7.7 mg/dL Phosphorus Level 4.4 mg/dL Albumin 2.0 g/dL PE: GEN: NAD LUNGS: CTAB HEART: RRR ABD: S/ND/NT NEURO/PSYCH: A & O 3 A/P: ESRD on HD Chronic nausea - stable -- Awaiting DC. AMINA GANT May 31, 2018 11:02
--- NOTE | 2018-05-31 11:58 | PDOC ---
Renal-Progress Notes Subjective Notes Notes NONE History of Present Illness Hx of present illness STABLE Vitals Vitals Vital Signs Date Time Temp Pulse Resp B/P (MAP) Pulse Ox O2 Delivery O2 Flow Rate FiO2 05/31/18 11:00 98.0 70 18 123/47 (72) 93 Room Air 98.0 05/31/18 08:00 2.0 Weight Weight [ ] I.O. Intake and Output Intake and Output 05/31/18 06:59 Intake Total 780 ml Balance 780 ml Intake Oral 780 ml Labs Labs Laboratory Tests Test 05/30/18 12:13 05/30/18 12:56 05/30/18 16:43 05/30/18 20:51 Glucose (Fingerstick) 81 mg/dL (70-99) 102 mg/dL (70-99) 154 mg/dL (70-99) 156 mg/dL (70-99) Test 05/31/18 04:15 05/31/18 07:44 Sodium Level 137 mmol/L (136-145) Potassium Level 4.5 mmol/L (3.5-5.1) Chloride Level 100 mmol/L (98-107) Carbon Dioxide Level 31 mmol/L (21-32) Anion Gap 6 (6-14) Blood Urea Nitrogen 30 mg/dL (7-20) Creatinine 3.5 mg/dL (0.6-1.0) Estimated GFR (Cockcroft-Gault) 13.3 Glucose Level 145 mg/dL (70-99) Calcium Level 7.7 mg/dL (8.5-10.1) Phosphorus Level 4.4 mg/dL (2.6-4.7) Albumin 2.0 g/dL (3.4-5.0) Glucose (Fingerstick) 97 mg/dL (70-99) Review of Systems Constitutional: yes: weakness, alert, oriented Ears/Nose/Throat: Yes: no symptom reported Eyes: Yes: no symptom reported Pulmonary: Yes no symptom reported Cardiovascular: Yes no symptom reported Gastrointestional: Yes: constipation Genitourinary: Yes: no symptom reported Musculoskeletal: Yes: no symptom reported Skin: Yes no symptom reported Psychiatric/Neurological: Yes: no symptom reported Endocrine: Yes: no symptom reported Physical Exam General Appearance: no apparent distress Respiratory: bilateral CTA Heart: S1S2 Abdomen: soft, bowel sounds present Genitourinary: no mass Neurology: alert, oriented Musculoskeletal: Osteoarthritis Assessment Assessment IMP NEW ESRD ANEMIA DM II HTN S/P HEART CATH-NO INTERVENTION PLAN HD TOMORROW D/C WHEN OP HD IS SET UP CONTACTED [facility] AGAIN TODAY AND WAS TOLD SHE WILL HAVE A CHAIR TOMORROW WILL FOLLOW D/W ALANNA BAHENA MD May 31, 2018 11:58
[2018-05-31] MEDS ORDERED: INSULIN LISPRO 300 UNITS/3 ML INSULN.PEN. SQ SCH (12:00)
--- NOTE | 2018-05-31 14:41 | NUR ---
SS following up with discharge planning. SS received contact from [employer] with new scheduled chair time of Monday, Monday, and Monday at 1515 with a start date of 06/01/2018 at 1445 [place] [address], . SS phoned and faxed discharge orders to [facility], ; fax [phone]. Pt will discharge today and return to [facility]. [facility] to provide transport. Pt, pt's RN , and pt's family notified
[2018-05-31 15:00] VITALS: BP 122/42
--- NOTE | 2018-05-31 18:27 | NUR ---
Discharge Note: KAUSHIK THAYER Discharge instructions and discharge home medications reviewed with Other facility and a copy given. All questions have been answered and understanding verbalized. The following instructions and handouts were given: dialysis and catheter, meds-including evening meds tonight and insulin dose change,and hx of hospital stay. Discontinued lines and drains: IV removed. Dialysis catheter in place. Patient discharged to [facility]. Report given to [place] and patient left with there transportation.
== END 2018-05-31 17:30 | DRG 673 ==
LOC: SDC 08:23 → EDSTATUS 09:30 → 1 WEST ICU 09:47 → 2 SOUTH 05-25 18:00
PROVIDERS: ADMIT Internal Medicine; ATTEND Internal Medicine
PROC: 02HV33Z Insertion of Infusion Device into Superior Vena Cava, Percutaneous Approach (ICD-10-PCS; 2018-05-23)
PROC: B548ZZA Ultrasonography of Superior Vena Cava, Guidance (ICD-10-PCS; 2018-05-23)
PROC: 5A1D70Z Performance of Urinary Filtration, Intermittent, Less than 6 Hours Per Day (ICD-10-PCS; 2018-05-23)
PROC: 5A1D70Z Performance of Urinary Filtration, Intermittent, Less than 6 Hours Per Day (ICD-10-PCS; 2018-05-25)
PROC: 4A023N7 Measurement of Cardiac Sampling and Pressure, Left Heart, Percutaneous Approach (ICD-10-PCS; principal; 2018-05-28)
PROC: B2111ZZ Fluoroscopy of Multiple Coronary Arteries using Low Osmolar Contrast (ICD-10-PCS; 2018-05-28)
PROC: B2151ZZ Fluoroscopy of Left Heart using Low Osmolar Contrast (ICD-10-PCS; 2018-05-28)
PROC: 5A1D70Z Performance of Urinary Filtration, Intermittent, Less than 6 Hours Per Day (ICD-10-PCS; 2018-05-28)
PROC: 06PYX3Z Removal of Infusion Device from Lower Vein, External Approach (ICD-10-PCS; 2018-05-29)
PROC: 02H633Z Insertion of Infusion Device into Right Atrium, Percutaneous Approach (ICD-10-PCS; 2018-05-29)
PROC: 0JH63XZ Insertion of Tunneled Vascular Access Device into Chest Subcutaneous Tissue and Fascia, Percutaneous Approach (ICD-10-PCS; 2018-05-29)
PROC: B2141ZZ Fluoroscopy of Right Heart using Low Osmolar Contrast (ICD-10-PCS; 2018-05-29)
PROC: 5A1D70Z Performance of Urinary Filtration, Intermittent, Less than 6 Hours Per Day (ICD-10-PCS; 2018-05-30)
DX: N17.9 Acute kidney failure, unspecified (principal); I21.4 Non-ST elevation (NSTEMI) myocardial infarction; I46.9 Cardiac arrest, cause unspecified; J96.01 Acute respiratory failure with hypoxia; I50.23 Acute on chronic systolic (congestive) heart failure; I13.2 Hypertensive heart and chronic kidney disease with heart failure and with stage 5 chronic kidney disease, or end stage renal disease; I25.110 Atherosclerotic heart disease of native coronary artery with unstable angina pectoris; N18.6 End stage renal disease; E87.5 Hyperkalemia; D63.8 Anemia in other chronic diseases classified elsewhere; E11.21 Type 2 diabetes mellitus with diabetic nephropathy; E11.22 Type 2 diabetes mellitus with diabetic chronic kidney disease; E11.319 Type 2 diabetes mellitus with unspecified diabetic retinopathy without macular edema; E11.43 Type 2 diabetes mellitus with diabetic autonomic (poly)neuropathy; E78.5 Hyperlipidemia, unspecified; H54.61 Unqualified visual loss, right eye, normal vision left eye; H54.62 Unqualified visual loss, left eye, normal vision right eye; I34.0 Nonrheumatic mitral (valve) insufficiency; K21.9 Gastro-esophageal reflux disease without esophagitis; M19.90 Unspecified osteoarthritis, unspecified site; K29.50 Unspecified chronic gastritis without bleeding; K31.84 Gastroparesis; L97.509 Non-pressure chronic ulcer of other part of unspecified foot with unspecified severity; K59.00 Constipation, unspecified; Z79.4 Long term (current) use of insulin; Z82.49 Family history of ischemic heart disease and other diseases of the circulatory system; Z99.2 Dependence on renal dialysis; Z83.3 Family history of diabetes mellitus
CPT/HCPCS: 36415; 36556; 36581; 36600; 43235; 71045; 76770; 76937; 77001; 80048; 80053; 80061; 80069; 81001; 82805; 82962; 83036; 83735; 84443; 84484; 85025; 85027; 85610; 86704; 86706; 87340; 87641; 93005; 93306; 93458; 99152; 99153; C1750; C1769; C1892; J0171; J0360; J0696; J1644; J1815; J2250; J2704; J3010; J3490; J7030; J7042; Q0162; Q9967; 97116; 97530; 97535

== ENCOUNTER 2018-10-10 07:17 | Outpatient (CLI) | payer OTHER ==
[~2018-10-10] VITALS: Ht 149.9 cm; Wt 93.0 kg
[2018-10-10] VITALS (7 sets, daily range): BP systolic 128–167; BP diastolic 59–76
[~2018-10-10 07:17] MED LIST changes: +CARV25TA PO; +HYDR-2868 PO
[2018-10-10 07:44] LABS: BASO # 0.1 x10^3/uL (0.0-0.2); BASO % 2 % (0-3); EOS # 0.2 x10^3/uL (0.0-0.7); EOS % 4 % (0-3); HEMATOCRIT 34.5 % (36.0-47.0); HEMOGLOBIN 11.5 g/dL (12.0-15.5); LYMPH # 1.3 x10^3/uL (1.0-4.8); LYMPH % 24 % (24-48); MEAN CORPUSCULAR HEMOGLOBIN 30 pg (25-35); MEAN CORPUSCULAR HGB CONC 33 g/dL (31-37); MEAN CORPUSCULAR VOLUME 89 fL (79-100); MONO # 0.6 x10^3/uL (0.0-1.1); MONO % 10 % (0-9); NEUT # 3.3 x10^3/uL (1.8-7.7); NEUT % 61 % (31-73); PLATELET COUNT 226 x10^3/uL (140-400); RED BLOOD COUNT 3.88 x10^6/uL (3.50-5.40); RED CELL DISTRIBUTION WIDTH 15.6 % (11.5-14.5); WHITE BLOOD COUNT 5.4 x10^3/uL (4.0-11.0)
[2018-10-10 07:50] LABS: CALCIUM 8.3 mg/dL (8.5-10.1); CREATININE 4.5 mg/dL (0.6-1.0); GFR 9.9; POTASSIUM 4.9 mmol/L (3.5-5.1)
[2018-10-10 07:55] LABS: PROTHROMBIN TIME PATIENT 11.8 SEC (11.7-14.0)
[2018-10-10] MEDS ORDERED: HYDR-2761 PO (08:14)
[2018-10-10] MEDS ORDERED: CARV12.511 PO (08:14)
[2018-10-10] MEDS ORDERED: LISI-338 PO (08:14)
[2018-10-10] MEDS ORDERED: FOLI0.8T3 PO (08:24)
[2018-10-10] MEDS ORDERED: INSU100C4 SQ (08:24)
[2018-10-10] MEDS ORDERED: fentaNYL PF VIAL 100 MCG/2 ML VIAL ONE (08:29)
[2018-10-10] MEDS ORDERED: MIDAZOLAM HCL/PF 2 MG/2 ML VIAL. ONE (08:29)
[2018-10-10] MEDS ORDERED: LIDOCAINE WITH 8.4% SOD BICARB 3 ML DISP.SYRIN. ONE (08:30)
[2018-10-10] MEDS ORDERED: IODIXANOL 320 MG/ML 100 ML VIAL. ONE (08:30)
[2018-10-10] MEDS ORDERED: HEPARIN for IV BOLUS 10,000 UNIT/10 ML VIAL. ONE (09:05)
[2018-10-10] MEDS ORDERED: HEPARIN for IV BOLUS 10,000 UNIT/10 ML VIAL. IV ONE (09:15)
[2018-10-10] MEDS ORDERED: MIDAZOLAM HCL/PF 2 MG/2 ML VIAL. IV ONE (09:15)
[2018-10-10] MEDS ORDERED: fentaNYL PF VIAL 100 MCG/2 ML VIAL IV ONE (09:15)
[2018-10-10] MEDS ORDERED: LIDOCAINE WITH 8.4% SOD BICARB 3 ML DISP.SYRIN. IJ ONE (09:15)
[2018-10-10] MEDS ORDERED: IODIXANOL 320 MG/ML 100 ML VIAL. IART ONE (09:15)
--- NOTE | 2018-10-10 10:57 | NUR ---
Discharge Note: Discharge instructions and discharge home medications reviewed with Patient and a copy given. All questions have been answered and understanding verbalized. The following instructions and handouts were given moderate sedation and fistula care. Pt instructed to give order sheet to dialysis nurse upon arrival. Discontinued PIV. 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
--- NOTE | 2018-10-12 08:39 | RAD ---
10/12/2018 1. Left upper extremity fistulogram. 2. Angioplasty of venous outflow stenosis Indication: Prolonged bleeding Discussion: The procedure was explained in its entirety to the patient or the patients designated public health representative by a member of the treatment team, including a discussion of the risks, benefits and commonly accepted alternatives to the procedure, as well as the expected consequences of no therapy whatsoever. Discussion of the risks included, but was not limited to, those that are most frequent and those that are rare but possibly severe or life-threatening, as well as the possibility of unforeseen complications. Ultrasound evaluation demonstrated the fistula be patent. The fistula was accessed with micropuncture technique, and direct ultrasound accessed directed towards the arterial anastomosis. A 4 Lithuanian vascular sheath was placed. Fistulogram was were obtained demonstrating moderate venous outflow stenosis. The arterial anastomosis, remainder of the graft, and more central veins are patent. A guidewire was manipulated towards the venous anastomosis, and the sheath repositioned. The stenosis was traversed. Balloon angioplasty was performed with 7 mm balloon which improved morphology and flow through the venous anastomotic stenosis. The sheath was removed over pursestring suture. Manual pressure was held. Sterile dressings were applied. Fluoro Time: 3.0 Minutes Dose: 21 Gycm2 Impression: Venous anastomotic stenosis treated with balloon angioplasty
== END 2018-10-10 10:40 | disposition home or self-care (01) ==
LOC: INTRAD 07:17
PROVIDERS: ATTEND Internal Medicine Nephrology
DX: T82.858A Stenosis of other vascular prosthetic devices, implants and grafts, initial encounter (principal); Y83.8 Other surgical procedures as the cause of abnormal reaction of the patient, or of later complication, without mention of misadventure at the time of the procedure; Y92.89 Other specified places as the place of occurrence of the external cause; Z79.01 Long term (current) use of anticoagulants
CPT/HCPCS: 36415; 36902; 76937; 80048; 85025; 85610; 99152; 99153; C1713; C1725; C1769; C1892; C1894; J1644; J2250; J3010; Q9967

== ENCOUNTER 2019-03-29 08:25 | Outpatient (CLI) | payer MEDICARE, MEDICAID ==
[~2019-03-29] VITALS: Ht 149.9 cm; Wt 93.0 kg
[~2019-03-29 08:25] MED LIST changes: +CARV12.511 PO; +FOLI0.8T3 PO; +HYDR-2761 PO; +INSU100C4 SQ
[2019-03-29 08:48] VITALS: BP 142/56
[2019-03-29] MEDS ORDERED: LIDOCAINE WITH 8.4% SOD BICARB 3 ML DISP.SYRIN. ONE (09:17)
[2019-03-29] MEDS ORDERED: IODIXANOL 320 MG/ML 100 ML VIAL. ONE (09:17)
[2019-03-29] MEDS ORDERED: HEPARIN for IV BOLUS 10,000 UNIT/10 ML VIAL. ONE (09:21)
[2019-03-29] MEDS ORDERED: MIDAZOLAM HCL/PF 2 MG/2 ML VIAL. ONE (09:21)
[2019-03-29] MEDS ORDERED: fentaNYL PF VIAL 100 MCG/2 ML VIAL ONE (09:21)
[2019-03-29] MEDS ORDERED: MIDAZOLAM HCL/PF 2 MG/2 ML VIAL. IV ONE (09:45)
[2019-03-29] MEDS ORDERED: LIDOCAINE WITH 8.4% SOD BICARB 3 ML DISP.SYRIN. IJ ONE (09:45)
[2019-03-29] MEDS ORDERED: IODIXANOL 320 MG/ML 100 ML VIAL. IART ONE (09:45)
[2019-03-29] MEDS ORDERED: fentaNYL PF VIAL 100 MCG/2 ML VIAL IV ONE (09:45)
--- NOTE | 2019-03-29 09:56 | PDOC1 ---
IR Pre-Procedure H&P H&P Update 1.10.20 LUE AVG with prolonged bleeding. OTHERWISE: No significant change from most recent charted admit H&P. Patient was discharged from [facility] yesterday. SAMUEL DIAZ MD Mar 29, 2019 09:56
--- NOTE | 2019-03-29 09:57 | PDOC ---
MODERATE SEDATION ASSESSMENT RISKS/ALTERNATIVES Risks/Alternatives Risks and alternatives of this type of sedation and procedure discussed with: RISK/ALTERNATIVES: Patient H & P ON CHART H & P H & P on chart and reviewed for co-morbid conditions and appropriate labs. H&P ON CHART: Yes STATUS PREG STATUS ASSESSED: Yes MEDS/ALLERGIES REVIEWED Meds/Allergies Reviewed Medications and Allergies including time and route of recently administered narcotics and sedatives. MEDS/ALLERGIES REVIEWED: Yes ASA RATING ASA RATING: II AIRWAY ASSESSMENT Airway Assessment Airway patency, oral function limitations, presence of caps, crowns, dentures, partials, and ability to extend neck assessed. AIRWAY ASSESSMENT: Yes MALLAMPATI SCORE MALLAMPATI SCORE: II PRE-SEDATION ASSESSMENT PRE-SEDATION ASSESSMENT: Yes SAMUEL DIAZ MD Mar 29, 2019 09:57
[2019-03-29] MEDS ORDERED: HEPARIN for IV BOLUS 10,000 UNIT/10 ML VIAL. IV ONE (10:00)
[2019-03-29 10:01] VITALS: BP 133/62
[2019-03-29 10:10] VITALS: BP 142/57
[2019-03-29 10:25] VITALS: BP 138/62
[2019-03-29 10:40] VITALS: BP 143/63
[2019-03-29 10:55] VITALS: BP 119/48
[2019-03-29] MEDS ORDERED: LISI30TA4 PO (11:00)
[2019-03-29] MEDS ORDERED: ERYT250T16 PO (11:00)
[2019-03-29] MEDS ORDERED: SEVE800T9 PO (11:00)
--- NOTE | 2019-03-29 11:12 | NUR ---
pt ambulated and tolerated PO. Pt discharge to [facility] with transportation. Discharge instructions reviewed with pt. Pt stated understanding
--- NOTE | 2019-03-29 16:14 | RAD ---
03/29/2019 Procedures: 1. Left upper extremity fistulogram. 2. Angioplasty of venous outflow stenosis Indication: Prolonged bleeding Discussion: The procedure was explained in its entirety to the patient or the patients designated players club representative by a member of the treatment team, including a discussion of the risks, benefits and commonly accepted alternatives to the procedure, as well as the expected consequences of no therapy whatsoever. Discussion of the risks included, but was not limited to, those that are most frequent and those that are rare but possibly severe or life-threatening, as well as the possibility of unforeseen complications. Ultrasound evaluation demonstrated the fistula be patent. The fistula was accessed with micropuncture technique, and direct ultrasound accessed directed towards the arterial anastomosis. A short 6 Gibraltarian vascular sheath was placed. . Fistulograms demonstrate moderate venous outflow stenosis. The arterial anastomosis, remainder of the graft, and more central veins are patent. A guidewire was manipulated towards the venous anastomosis, and the sheath repositioned. The stenosis was traversed. Balloon angioplasty was performed with 7 mm balloon which improved morphology and flow through the venous anastomotic stenosis. The sheath was removed over pursestring suture. Manual pressure was held. Sterile dressings were applied. Procedure was performed under conscious sedation including continuous cardiopulmonary monitoring via dedicated sedation nurse. [id number] sedation time: 30 minutes Total fluoroscopy time: 1.8 Minutes Dose area product. 12 Gycm2 Impression: Venous anastomotic stenosis, treated with high-pressure balloon angioplasty
== END 2019-03-29 11:15 | disposition home or self-care (01) ==
LOC: INTRAD 08:25
PROVIDERS: ATTEND Internal Medicine Nephrology
DX: T82.838A Hemorrhage due to vascular prosthetic devices, implants and grafts, initial encounter (principal); T82.858A Stenosis of other vascular prosthetic devices, implants and grafts, initial encounter; Y83.8 Other surgical procedures as the cause of abnormal reaction of the patient, or of later complication, without mention of misadventure at the time of the procedure; Y92.89 Other specified places as the place of occurrence of the external cause
CPT/HCPCS: 36902; 76937; 99152; 99153; C1725; C1892; C1894; J1644; J2250; J3010; Q9967

== ENCOUNTER 2019-06-18 08:23 | Outpatient (CLI) | payer MEDICARE, MEDICAID ==
[2019-06-18] VITALS (7 sets, daily range): BP systolic 139–167; BP diastolic 58–74
[~2019-06-18] VITALS: Ht 149.9 cm; Wt 65.8 kg
[~2019-06-18 08:23] MED LIST changes: +ERYT250T16 PO; +LISI30TA4 PO; +SEVE800T9 PO
[2019-06-18 08:43] LABS: BASO % 1 % (0-3); EOS # 0.2 x10^3/uL (0.0-0.7); EOS % 3 % (0-3); HEMATOCRIT 36.5 % (36.0-47.0); HEMOGLOBIN 12.1 g/dL (12.0-15.5); LYMPH # 1.3 x10^3/uL (1.0-4.8); LYMPH % 26 % (24-48); MEAN CORPUSCULAR HEMOGLOBIN 31 pg (25-35); MEAN CORPUSCULAR HGB CONC 33 g/dL (31-37); MEAN CORPUSCULAR VOLUME 92 fL (79-100); MONO # 0.4 x10^3/uL (0.0-1.1); MONO % 8 % (0-9); NEUT % 61 % (31-73); PLATELET COUNT 189 x10^3/uL (140-400); RED BLOOD COUNT 3.95 x10^6/uL (3.50-5.40); RED CELL DISTRIBUTION WIDTH 13.8 % (11.5-14.5); WHITE BLOOD COUNT 4.9 x10^3/uL (4.0-11.0)
[2019-06-18 08:50] LABS: CALCIUM 8.6 mg/dL (8.5-10.1); CREATININE 3.8 mg/dL (0.6-1.0); GFR 12.1; POTASSIUM 4.4 mmol/L (3.5-5.1)
[2019-06-18 08:55] LABS: PROTHROMBIN TIME PATIENT 12.4 SEC (11.7-14.0)
[2019-06-18] MEDS ORDERED: IODIXANOL 320 MG/ML 100 ML VIAL. ONE (09:03)
[2019-06-18] MEDS ORDERED: LIDOCAINE WITH 8.4% SOD BICARB 3 ML DISP.SYRIN. ONE (09:03)
[2019-06-18] MEDS ORDERED: fentaNYL PF VIAL 100 MCG/2 ML VIAL ONE (09:28)
[2019-06-18] MEDS ORDERED: MIDAZOLAM HCL/PF 2 MG/2 ML VIAL. ONE (09:28)
[2019-06-18] MEDS ORDERED: HEPARIN for IV BOLUS 10,000 UNIT/10 ML VIAL. ONE (09:28)
[2019-06-18] MEDS ORDERED: fentaNYL PF VIAL 100 MCG/2 ML VIAL IV ONE (10:00)
[2019-06-18] MEDS ORDERED: IODIXANOL 320 MG/ML 100 ML VIAL. IART ONE (10:00)
[2019-06-18] MEDS ORDERED: HEPARIN for IV BOLUS 10,000 UNIT/10 ML VIAL. IV ONE (10:00)
[2019-06-18] MEDS ORDERED: LIDOCAINE WITH 8.4% SOD BICARB 3 ML DISP.SYRIN. IJ ONE (10:00)
[2019-06-18] MEDS ORDERED: MIDAZOLAM HCL/PF 2 MG/2 ML VIAL. IV ONE (10:00)
--- NOTE | 2019-06-18 12:28 | NUR ---
pt A&O x3. denies pain,nausea or dizziness, VSS. tolerating po well. ambulated to BR w/o problem. LUE access site dressing is clean and dry. called and gave report to Crista the nurse at the [facility]. sent copy of order to remove stitch tomorrow. pt out to her facility van per w/c.
--- NOTE | 2019-06-20 10:59 | RAD ---
10/12/2018 1. Left upper extremity fistulogram. 2. Angioplasty of venous anastomotic stenosis 3. Self expanding stent placement, venous anastomotic stenosis Indication: Prolonged bleeding Discussion: The procedure was explained in its entirety to the patient or the patients designated insurance service representative by a member of the treatment team, including a discussion of the risks, benefits and commonly accepted alternatives to the procedure, as well as the expected consequences of no therapy whatsoever. Discussion of the risks included, but was not limited to, those that are most frequent and those that are rare but possibly severe or life-threatening, as well as the possibility of unforeseen complications. Ultrasound evaluation demonstrated the fistula be patent. The fistula was accessed with micropuncture technique, and direct ultrasound accessed directed towards the arterial anastomosis. A 4 Turkmen vascular sheath was placed. Fistulogram was were obtained demonstrating moderate venous outflow stenosis. The arterial anastomosis, remainder of the graft, and more central veins are patent. A guidewire was manipulated towards the venous anastomosis, and the sheath repositioned. The stenosis was traversed. Balloon angioplasty was performed with 7 mm balloon which improved morphology and flow through the venous anastomotic stenosis. Stenosis was found to rapidly recurred. Therefore 2 self-expanding stents were placed draining the venous anastomosis. This significantly improved morphology and flow through the fistula. The sheath was removed over pursestring suture. Sterile dressings were applied. MODERATE SEDATION: 58 MIN The procedure was performed under conscious sedation including continuous cardiopulmonary monitoring via dedicated sedation nurse . Xilt-us-ksra sedation time::: 5.0 MIN Dose area product:: 32 Gycm2 Impression: Recurrent venous anastomotic stenosis treated with balloon angioplasty and subsequent self expanding stent placement
== END 2019-06-18 12:15 ==
LOC: INTRAD 08:23
PROVIDERS: ATTEND Internal Medicine Nephrology
DX: T82.838A Hemorrhage due to vascular prosthetic devices, implants and grafts, initial encounter (principal); I12.0 Hypertensive chronic kidney disease with stage 5 chronic kidney disease or end stage renal disease; E11.22 Type 2 diabetes mellitus with diabetic chronic kidney disease; N18.6 End stage renal disease; E11.42 Type 2 diabetes mellitus with diabetic polyneuropathy; K21.9 Gastro-esophageal reflux disease without esophagitis; E78.00 Pure hypercholesterolemia, unspecified; Y83.8 Other surgical procedures as the cause of abnormal reaction of the patient, or of later complication, without mention of misadventure at the time of the procedure; Y92.89 Other specified places as the place of occurrence of the external cause; Z79.01 Long term (current) use of anticoagulants; Z79.82 Long term (current) use of aspirin; Z79.84 Long term (current) use of oral hypoglycemic drugs; Z79.899 Other long term (current) drug therapy
CPT/HCPCS: 36415; 36903; 76937; 80048; 85025; 85610; 99152; 99153; C1758; C1769; C1892; C1894; J1644; J2250; J3010; J3490; Q9967

== ENCOUNTER 2019-07-29 12:24 | Emergency (ER) | payer MEDICARE, MEDICAID ==
[~2019-07-29] VITALS: Ht 149.9 cm; Wt 63.6 kg
[~2019-07-29 12:24] MED LIST changes: +ACET325T9 PO; +ACET500T68 PO; +AMLO5TAB10 PO; +ATOR10TA PO; +CARV25TA2 PO; +DEXT38GE2 PO; +GLUC1KIT IM; +HYDR-2759 PO; +HYDR-2867 PO; +INSU100V6 SQ; +LISI-130 PO; +ONDA-84 PO; +POLY2500 PO
--- NOTE | 2019-07-29 13:17 | PHYS DOC ---
Past Medical History Past Medical History: Diabetes-Type II, Hypertension, Renal Failure, Other Additional Past Medical Histor: Gastroparesis, COVID+ 07/2019 Past Surgical History: Other Additional Past Surgical Histo: AV fistula - L. FA Smoking Status: Never Smoker Alcohol Use: None Drug Use: None General Adult EDM: Chief Complaint: HYPOGLYCEMIA HPI: HPI: Patient is a 64 year old female who presents with was admitted here on 07 22 and discharged on 07 25 with COVID-19 and generalized weakness. Patient was found unresponsive at the retirement today and her blood sugar read as low. EMS gave her D10 and patient began to awaken. Patient is alert and oriented and answers all my questions appropriately. She states that she has not had much of an appetite. [facility] states that she has not ate hardly anything the last 2 days but they have continued giving her insulin. Patient states that she would try to eat some food here in the ED. Patient states she has no pain but still feels very weak. Review of Systems: Review of Systems: Constitutional: Denies fever or chills. Generalized weakness, low blood sugar. [] Heart Score: Risk Factors: Risk Factors: DM, Current or recent (<one month) smoker, HTN, HLP, family history of CAD, obesity. Risk Scores: Score 0 - 3: 2.5% MACE over next 6 weeks - Discharge Home Score 4 - 6: 20.3% MACE over next 6 weeks - Admit for Clinical Observation Score 7 - 10: 72.7% MACE over next 6 weeks - Early Invasive Strategies Allergies: Allergies: Allergies Coded Allergies Type Severity Reaction Last Updated Verified I S O L A T I O N *CONTACT* Allergy Unknown 07/23/19 No No Known Medication Allergies Allergy Unknown 07/23/19 No Physical Exam: PE: Constitutional: Well developed, well nourished, no acute distress, non-toxic appearance. Low rectal temperature.[] HENT: Normocephalic, atraumatic, bilateral external ears normal, oropharynx moist, no oral exudates, nose normal. [] Eyes: PERRLA, EOMI, conjunctiva normal, no discharge. [] Neck: Normal range of motion, no tenderness, supple, no stridor. [] Cardiovascular:Heart rate regular rhythm, no murmur [] Lungs & Thorax: Bilateral breath sounds clear to auscultation [] Abdomen: Bowel sounds normal, soft, no tenderness, no masses, no pulsatile masses. [] Skin: Warm, dry, no erythema, no rash. [] Back: No tenderness, no CVA tenderness. [] Extremities: No tenderness, no cyanosis, no clubbing, ROM intact, no edema. [] Neurologic: Alert and oriented X 3, normal motor function, normal sensory function, no focal deficits noted. [] Psychologic: Affect normal, judgement normal, mood normal. [] Current Patient Data: Labs: Laboratory Tests Test 07/29/19 12:33 Glucose (Fingerstick) 165 mg/dL (70-99) H Vital Signs: Vital Signs Date Time Temp Pulse Resp B/P (MAP) Pulse Ox O2 Delivery O2 Flow Rate FiO2 07/29/19 12:40 94.7 63 16 178/78 (111) 97 Room Air 94.7 EKG: EKG: Sinus rhythm and no stemi and read by Dr Harry at 1238.[] Radiology/Procedures: Radiology/Procedures: [] Impression: [facility] [address] [place] [address] IMAGING REPORT Signed PATIENT: KATHERINE GANDARA ACCOUNT: [id number] : 1955 LOCATION: ER AGE: 64 SEX: F EXAM STATUS: REG ER ORD. PHYSICIAN: WHITLEY HERNANDEZ APRN REASON: loc, weakness PROCEDURE: PORTABLE CHEST 1V EXAM: PORTABLE CHEST 1V 07/29/2019 1:23 PM CLINICAL INDICATION:Weakness COMPARISON:Chest radiograph 07/23/2019 TECHNIQUE:AP portable upright chest radiograph FINDINGS:The heart and mediastinum are normal. Lungs are adequately expanded. No consolidation, pleural effusion, or pneumothorax. No pulmonary edema. A vascular stent is in the left upper extremity. No acute osseous abnormality. IMPRESSION:No acute cardiopulmonary abnormality. Electronically signed by: Sujatha Guillory MD (07/29/2019 1:51 PM) [id number] DICTATED and SIGNED BY: SUJATHA GUILLORY MD DATE: 07/29/19 1351 Course & Med Decision Making: Course & Med Decision Making Pertinent Labs and Imaging studies reviewed. (See chart for details) Alert and oriented. Patient is given a box lunch. Speaks in full clear sentences. PERRLA. Patient denies shortness of breath, fever, chills, chest pain, nausea, vomiting, diarrhea, headache, focal weakness, numbness or tingling. Lungs are clear to auscultation in all lobes. Patient states that she feels very cold. Rectally her temperature was 94.7. Can pink warm and dry. Vital signs otherwise normal. EKG shows sinus rhythm and no STEMI. Patient has a history of UTI, GERD, hyperparathyroidism, chronic renal failure, osteomyelitis, hypertension, high cholesterol, diabetes. No extremity swelling. Patient gets dialysis on , , and saturdays and states she has not missed dialysis. Patient ate food in the ED. She has remained alert and oriented. I have spoken to Dr Rios and he states that as long as the patients blood glucose remains steady in normal range she can go back to nursing facility. Patients blood glucose in the ED has remained stable. [] Dragon Disclaimer: Dragon Disclaimer: This electronic medical record was generated, in whole or in part, using a voice recognition dictation system. NIHSS Stroke Scale NIH Stroke Scale: NIH Stroke Scale Response (Comments) Value Level of Consciousness: 0 Alert/Responsive 0 LOC Questions: 0 Answers both correctly 0 LOC Commands: 0 Performs both tasks 0 Best Gaze: 0 Normal 0 Visual: 0 No visual loss 0 Facial Palsy: 0 Normal, symmetrical 0 Motor - Left Arm 0 No drift 0 Motor - Right Arm 0 No drift 0 Motor - Left Leg 0 No drift 0 Motor: Right Leg 0 No drift 0 Limb Ataxia: 0 Absent 0 Sensory: 0 No loss 0 Best Language: 0 Normal 0 Dysathria: 0 Normal 0 Extinction and Inattention: 0 Normal 0 Total 0 Departure Departure Impression: Primary Impression: Hypoglycemia Disposition: HOME, SELF-CARE Condition: STABLE Referrals: MAGGY PAREKH (PCP) Patient Instructions: Hypoglycemia (Low Blood Sugar) Additional Instructions: If you have not been eating do not take your insulin as you will become hypoglycemic again. Follow-up with your primary care. Drink plenty of fluids. Take your blood glucose often if not eating to make sure your blood glucose is staying at least 80- 100. WHITLEY HERNANDEZ APRN July 29, 2019 13:17
[2019-07-29 13:25] LABS: BASO % 1 % (0-3); EOS % 1 % (0-3); HEMOGLOBIN 13.4 g/dL (12.0-15.5); LYMPH # 1.2 x10^3/uL (1.0-4.8); LYMPH % 25 % (24-48); MEAN CORPUSCULAR HEMOGLOBIN 30 pg (25-35); MEAN CORPUSCULAR HGB CONC 34 g/dL (31-37); MEAN CORPUSCULAR VOLUME 90 fL (79-100); MONO # 0.3 x10^3/uL (0.0-1.1); MONO % 7 % (0-9); NEUT # 3.2 x10^3/uL (1.8-7.7); NEUT % 67 % (31-73); PLATELET COUNT 197 x10^3/uL (140-400); RED BLOOD COUNT 4.43 x10^6/uL (3.50-5.40); RED CELL DISTRIBUTION WIDTH 14.4 % (11.5-14.5); WHITE BLOOD COUNT 4.7 x10^3/uL (4.0-11.0)
[2019-07-29 13:34] LABS: PROTHROMBIN TIME PATIENT 11.2 SEC (11.7-14.0)
[2019-07-29 13:41] LABS: CALCIUM 8.5 mg/dL (8.5-10.1); GFR 3.2; POTASSIUM 3.8 mmol/L (3.5-5.1)
[2019-07-29 13:48] LABS: ALBUMIN 2.7 g/dL (3.4-5.0); ALBUMIN/GLOBULIN RATIO 0.7 (1.0-1.7); TOTAL BILIRUBIN 0.4 mg/dL (0.2-1.0); TOTAL PROTEIN 6.7 g/dL (6.4-8.2)
--- NOTE | 2019-07-29 13:54 | RAD ---
EXAM: PORTABLE CHEST 1V 07/29/2019 1:23 PM CLINICAL INDICATION:Weakness COMPARISON:Chest radiograph 07/23/2019 TECHNIQUE:AP portable upright chest radiograph FINDINGS:The heart and mediastinum are normal. Lungs are adequately expanded. No consolidation, pleural effusion, or pneumothorax. No pulmonary edema. A vascular stent is in the left upper extremity. No acute osseous abnormality. IMPRESSION:No acute cardiopulmonary abnormality. Electronically signed by: Sujatha Guillory MD (07/29/2019 1:51 PM) [id number]
--- NOTE | 2019-07-29 13:58 | EKG ---
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
[2019-07-29 14:33] LABS: CLARITY,URINE HAZY; COLOR,URINE YELLOW
[2019-07-29 14:40] LABS: BACTERIA,URINE 0 /HPF (0-FEW); BILIRUBIN,URINE NEGATIVE (NEG); NITRITE,URINE NEGATIVE (NEG); PROTEIN,URINE >=300 mg/dL (NEG-TRACE); RBC,URINE 0 /HPF (0-2); SQUAMOUS EPITHELIAL CELL,UR OCC /LPF; UROBILINOGEN,URINE 0.2 mg/dL (0.2 mg/dL); WBC,URINE OCC /HPF (0-4)
[2019-07-29 14:55] LABS: AMORPHOUS SEDIMENT,UR PRESENT /HPF; HYALINE CASTS, URINE OCCASIONAL /HPF
[2019-07-29 17:00] VITALS: BP 194/84
--- NOTE | 2019-07-30 11:10 | RAD ---
EXAM: PORTABLE CHEST 1V 07/29/2019 1:23 PM CLINICAL INDICATION:Weakness COMPARISON:Chest radiograph 07/23/2019 TECHNIQUE:AP portable upright chest radiograph FINDINGS:The heart and mediastinum are normal. Lungs are adequately expanded. No consolidation, pleural effusion, or pneumothorax. No pulmonary edema. A vascular stent is in the left upper extremity. No acute osseous abnormality. IMPRESSION:No acute cardiopulmonary abnormality. MTDD
== END 2019-07-29 18:12 | disposition home or self-care (01) ==
LOC: MERGE 12:24 → ER 12:24
DX: E11.649 Type 2 diabetes mellitus with hypoglycemia without coma (principal); I12.9 Hypertensive chronic kidney disease with stage 1 through stage 4 chronic kidney disease, or unspecified chronic kidney disease; N18.9 Chronic kidney disease, unspecified; Z98.890 Other specified postprocedural states; Z88.8 Allergy status to other drugs, medicaments and biological substances
CPT/HCPCS: 36415; 71045; 80053; 81001; 82962; 84484; 85025; 85610; 93005; 99285

== ENCOUNTER 2019-07-31 08:00 | Emergency (ER) | payer MEDICARE, MEDICAID ==
[~2019-07-31] VITALS: Ht 157.5 cm; Wt 70.0 kg
[2019-07-31] MEDS ORDERED: DEXTROSE 50% 25 GM / 50ML DISP.SYRIN. IV ONE (08:05)
--- NOTE | 2019-07-31 08:22 | PHYS DOC ---
Past Medical History Past Medical History: Diabetes-Type II, Hypertension, Renal Failure, Other Additional Past Medical Histor: Gastroparesis, COVID+ 07/2019 Past Surgical History: Other Additional Past Surgical Histo: AV fistula - L. FA Smoking Status: Never Smoker Alcohol Use: None Drug Use: None General Adult HPI: HPI: Patient is a 64 year old female with a past medical history of IDDM and ESRD presents for evaluation of hypoglycemia with altered mental status. Prior to arrival snf found patient with decreased level of consciusness with blood glucose monitor reading of LOW. EMS intial glucose reading was 20. EMS treated patient with glucagon-- repeat glucose level prior to arrival was 28. Intial treatment in the ER included D50. Upon my examination patient was more alert blood sugar was in the 250s. Patient is alert noted x4. She denies any headache chest pain or shortness of breath. She tells me she has had a decreased appetite and has not been eating. Despite decreased appetite [facility] staff continues to give patient her nor mal dose insulin. In review of patient's past medical records this is patient's 2nd visit for hypoglycemia this week. Patient was seen for hypoglycemia on 07/28. Patient with hospitalization related to COVID on 07/22 with discharge on 07/25. Patient most recent COVID test was Positive. Review of Systems: Review of Systems: Review of systems: Constitutional symptoms- No fever, no chills. Eyes- No Discharge, No Visual Loss Respiratory symptoms- No shortness of breath, No wheezing, No Dyspnea on Exertion Cardiovascular Systems; No chest pain, No Palpitations, No syncope Gastrointestinal symptoms: NO abdominal pain, no nausea, no vomiting or diarrhea. Genitourinary symptoms: No dysuria. Musculoskeletal symptoms: No back pain No extremity pain. NEUROLOGICAL Symptoms: No headache, no generalized weakness; No focal Weakness, Heart Score: Risk Factors: Risk Factors: DM, Current or recent (<one month) smoker, HTN, HLP, family history of CAD, obesity. Risk Scores: Score 0 - 3: 2.5% MACE over next 6 weeks - Discharge Home Score 4 - 6: 20.3% MACE over next 6 weeks - Admit for Clinical Observation Score 7 - 10: 72.7% MACE over next 6 weeks - Early Invasive Strategies Allergies: Allergies: Allergies Coded Allergies Type Severity Reaction Last Updated Verified I S O L A T I O N *CONTACT* Allergy Unknown 07/23/19 No No Known Medication Allergies Allergy Unknown 07/23/19 No Physical Exam: PE: Constitutional: Well developed, well nourished, no acute distress, non-toxic appearance. [] HENT: Normocephalic, atraumatic, bilateral external ears normal, oropharynx moist, no oral exudates, nose normal. [] Eyes: PERRLA, EOMI, conjunctiva normal, no discharge. [] Neck: Normal range of motion, no tenderness, supple, no stridor. [] Cardiovascular:Heart rate regular rhythm, no murmur [] Lungs & Thorax: Bilateral breath sounds clear to auscultation [] Abdomen: Bowel sounds normal, soft, no tenderness, no masses, no pulsatile masses. [] Skin: Warm, dry, no erythema, no rash. [] Back: No tenderness, no CVA tenderness. [] Extremities: No tenderness, no cyanosis, no clubbing, ROM intact, no edema. [] Neurologic: Alert and oriented X 3, normal motor function, normal sensory function, no focal deficits noted. [] Psychologic: Affect normal, judgement normal, mood normal. [] EKG: EKG: [] Radiology/Procedures: Radiology/Procedures: [] Course & Med Decision Making: Course & Med Decision Making Pertinent Labs and Imaging studies reviewed. (See chart for details) [] Patient was evaluated for chief complaint. Work-up consisted of laboratory analysis. Results reviewed and discussed with patient. Patient initial treatment by EMS included glucagon. On arrival patient was treated with D50. Patient was fed. Patient was observed for greater than 2 hours blood sugar monitored and continues to be stable. Patient will be discharged back to nursing care facility. It is recommended that patient nursing staff check patient's blood sugar prior to treating patient with her insulin. Patient must follow-up with her primary care physician or be evaluated by [facility] physician regarding adjusting patient's insulin. Erin Disclaimer: Erin Disclaimer: This electronic medical record was generated, in whole or in part, using a voice recognition dictation system. Departure Departure Impression: Primary Impression: Hypoglycemia Disposition: HOME, SELF-CARE Condition: STABLE Referrals: MAGGY PAREKH (PCP) Patient Instructions: Hypoglycemia (Low Blood Sugar) NHUNG PARMAR I DO July 31, 2019 08:22
[2019-07-31 08:39] LABS: CALCIUM 8.2 mg/dL (8.5-10.1); CREATININE 13.1 mg/dL (0.6-1.0); GFR 2.9; POTASSIUM 3.5 mmol/L (3.5-5.1)
[2019-07-31 12:24] VITALS: BP 189/77
== END 2019-07-31 12:50 | disposition home or self-care (01) ==
LOC: ER 08:00 → MERGE 08:00 → ER 12:50
DX: E11.649 Type 2 diabetes mellitus with hypoglycemia without coma (principal); R41.82 Altered mental status, unspecified; N18.9 Chronic kidney disease, unspecified; I10 Essential (primary) hypertension; Z98.890 Other specified postprocedural states; Z88.8 Allergy status to other drugs, medicaments and biological substances
CPT/HCPCS: 36415; 80048; 82962; 96374; 99285; J7042